=== PATIENT | female | born 1970 | race Caucasian/White ===

== ENCOUNTER 2021-12-06 01:25 | Inpatient (IN) | payer OTHER, SELFPAY ==
[2021-12-06 02:02] VITALS: BP 114/63; PULSE 58; RESP 16; TEMP 36.2; O2SAT 95
[2021-12-06 02:03] VITALS: BMI 31.6
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
[2021-12-06 09:26] VITALS: BP 105/64; PULSE 69; RESP 18; TEMP 36.1; O2SAT 96
[2021-12-06 10:00] VITALS: BP 105/64; PULSE 69; RESP 18; TEMP 36.1; O2SAT 96
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
--- NOTE | 2021-12-06 16:27 | HO.HSGERICON ---
History of Present Illness Data of Consult Service Date: 12/06/21 Primary Care Provider: Unknown Physician HPI Reason for consult: asthma 51F admitted to inpatient psychiatry for depression. has history of asthma/pulmonary fibrosis, on inhaled steroid/laba and prn joseph, denies sob, chest pain, fever, chills Review of Systems Review of Systems: Yes all other systems are reviewed and are negative PMFSH Family History Father No family history of coronary artery disease Social History Household Members: None Household Members Other:: currently homeless Housing: Homeless Do you presently have visiting nurse or other home services: No Patient Tobacco Use Status: Current everyday Tobacco user Tobacco use type: Cigarette Cigarette Packs Per Day: 1 Cigarettes Per Day: 20.0 Smoked in Last 30 Days: Yes Patient Interested in Nicotine Replacement: Yes Patient Given Instructions on How to Stop Smoking: No Use of substances other than those prescribed or required for medical reasons: Yes Substance Use Type: Crack/Cocaine Substance Use Type Other:: cocaine Last Used Substance: Just Prior to Admission Currently Displaying Signs/Symptoms of Drug Intoxication Withdrawal: No Any prior treatment program specific to substance use: Yes Spiritual Healthcare Practices: none noted Pent[employer]al Healthcare Practices: none noted Cultural Healthcare Practices: none noted Advance Directives: No Do you have thoughts of harming others: None Do you have a plan to hurt others: No Plan Recently lost weight without trying: Unsure Patient : No : No Poor oral hygiene: No Meds Allergies Allergy/AdvReac Type Severity Reaction Status Date / Time codeine [CODEINE] Allergy Unknown ABD PAIN Verified 12/06/21 02:03 Active Medications: Current Medications Acetaminophen (Acetaminophen 325 Mg Tablet) 650 mg PO Q6H PRN PRN Reason: Headache/Pain Mild Scale (1-3) Al Hydroxide/Mg Hydroxide (Magnesium Hydrox/Alum Hydrox 30 Ml Oral.Susp) 30 ml PO Q6H PRN PRN Reason: Heartburn/Nausea Albuterol Sulfate (Albuterol Sulfate 90 Mcg 8 Gm Inhaler) 2 puff INHALE Q4H PRN PRN Reason: Shortness Of Breath Escitalopram Oxalate (Escitalopram Oxalate 20 Mg Tablet) 20 mg PO DAILY [facility] Fluticasone/Vilanterol (Fluticasone/Vilanterol 100/25 Blst.W.Dev) 1 puff INHALE RDAILY [facility] Hydroxyzine HCl (Hydroxyzine Hcl 25 Mg Tablet) 25 mg PO BEDTIME PRN PRN Reason: Anxiety Magnesium Hydroxide (Milk Of Magnesia 30 Ml Oral.Susp) 30 ml PO DAILY PRN PRN Reason: Constipation Olanzapine (Olanzapine 5 Mg Tablet) 5 mg PO BEDTIME [facility] Trazodone HCl (Trazodone Hcl 50 Mg Tablet) 50 mg PO BEDTIME PRN PRN Reason: Insomnia Home Medications Medication Instructions Recorded Confirmed Last Taken Type albuterol sulfate 90 mcg/actuation 2 puff INHALATION Q4H PRN 12/06/21 12/06/21 Unknown History aerosol inhaler (ProAir HFA) citalopram 40 mg tablet 40 mg PO DAILY 12/06/21 12/06/21 12/04/21 History fluticasone 250 mcg-salmeterol 50 1 inh INHALATION BID 12/06/21 12/06/21 Unknown History mcg/dose blistr powdr for inhalation (Advair Diskus) Assessment and Plan (1) Opioid use disorder: Status: Acute Plan 51F admitted to inpatient pyschiatry for depression mild intermittent asthma and pulmonary fibrosis stable continue breo albuterol as needed Physical Exam Vital Signs: Last Vital Signs Temp 96.9 F 12/06/21 09:26 Pulse 69 12/06/21 09:26 Resp 18 12/06/21 09:26 BP 105/64 12/06/21 09:26 Pulse Ox 96 12/06/21 09:26 BMI result Body Mass Index 31.6 General: AO X 3, no acute distress Resp: CTA bilateral, no accessory muscles used CVS: S1,S2,RRR GI: soft, non tender, non distended Neuro: motor grossly intact, alert Neuro Cranial nerves: Yes CN's II-XII intact bilaterally
[2021-12-06 21:22] VITALS: BP 122/65; PULSE 63; RESP 18; TEMP 36.2; O2SAT 97
[2021-12-06] MEDS: Nicotine 21 MG PATCH.TD24 TRANSDERMA (21:24)
[2021-12-06] MEDS: OLANZapine 5 MG TABLET PO (21:24)
[2021-12-07 07:48] LABS: Alanine Aminotransferase 44 U/L (0-31); Albumin Level 4.2 g/dL (3.5-5.0); Alkaline Phosphatase 80 U/L (39-117); Anion Gap 12 (12-20); Aspartate Amino Transferase 34 U/L (5-31); Bilirubin Total 0.3 mg/dL (0.0-1.0); Blood Urea Nitrogen 17 mg/dL (9-16); Carbon Dioxide 29 mmol/L (22-29); Chloride 105 mmol/L (96-108); Cholesterol 211 mg/dL; Creatinine Clr Calc Pharmacy 83.8; Estimated Glomerular Filt Rate > 60; Glucose Fasting 95 mg/dL (60-99); HDL Cholesterol 37 mg/dL; LDL Cholesterol Calculated 149 mg/dl; Potassium 4.7 mmol/L (3.3-5.1); Sodium 141 mmol/L (135-145); Total Protein 7.3 g/dL (6.5-8.0); Triglycerides 126 mg/dL
[2021-12-07 08:00] VITALS: BP 123/57; PULSE 56; RESP 16; TEMP 36.9; O2SAT 95
[2021-12-07] MEDS: Fluticasone/Vilanterol 100/25 BLST.W.DEV 1 PUFF INHALE (08:35)
[2021-12-07] MEDS: Escitalopram Oxalate 20 MG TABLET PO (08:36)
[2021-12-07] MEDS: Nicotine 21 MG PATCH.TD24 TRANSDERMA (10:03)
--- NOTE | 2021-12-07 11:55 | P.PNPSI_ITS ---
Subjective Subjective Date of Service: 12/07/21 Reason For Visit: Bipolar, Unspecific anxiety Subjective Notes: Conditional Voluntary Interim History: The nursing staff reported the patient has been visible in the unit, watching TV but she has been tearful at times. Last night she slept well and today in the morning she stated that she was feeling much better. She stated that she liked the effect of Zyprexa on her mood lability. On interview, the patient denies new symptoms she stated that she is feeling a little better, we discussed risks, benefits, side-effects and alternatives and she agreed increase Zyprexa up to 7.5 mg p.o. q.h.s. to target insomnia and mood lability Mental Status Exam Mental Status Exam Patient Appearance: Well Grooomed Patient Orientation: Person Level of Consciousness: Awake Patient Behavior: Cooperative Mood Description: Withdrawn Affect Description: Constricted Patient Cognition Impaired: No Ability to Follow Directions: Good Speech Pattern: Clear Memory Description: Intact Hallucinations: None Delusions: Not Present Thought Process: Slowed Thinking Thought Content: positive for [place] and positive for Circumstantial Judgement: Fair Diagnostics Vital Signs (24Hr): Vital Signs - 24 hr 12/06/21 21:22 Temperature 97.2 F Pulse Rate 63 Respiratory Rate 18 Blood Pressure 122/65 Pulse Oximetry 97 BMI result Body Mass Index 31.6 Labs Results: 12/07/21 07:24 Labs: Laboratory Results - last 48 hr 12/07/21 07:24 Sodium 141 Potassium 4.7 Chloride 105 Carbon Dioxide 29 Anion Gap 12 BUN 17 H Creatinine 0.87 Estim Creat Clear Calc 83.8 Estimated GFR > 60 Fasting Glucose 95 Calcium 10.0 Total Bilirubin 0.3 AST 34 H ALT 44 H Alkaline Phosphatase 80 Total Protein 7.3 Albumin 4.2 Triglycerides 126 Cholesterol 211 LDL Cholesterol, Calc 149 HDL Cholesterol 37 Medications Medications Current Medications Acetaminophen (Acetaminophen 325 Mg Tablet) 650 mg PO Q6H PRN PRN Reason: Headache/Pain Mild Scale (1-3) Al Hydroxide/Mg Hydroxide (Magnesium Hydrox/Alum Hydrox 30 Ml Oral.Susp) 30 ml PO Q6H PRN PRN Reason: Heartburn/Nausea Albuterol Sulfate (Albuterol Sulfate 90 Mcg 8 Gm Inhaler) 2 puff INHALE Q4H PRN PRN Reason: Shortness Of Breath Escitalopram Oxalate (Escitalopram Oxalate 20 Mg Tablet) 20 mg PO DAILY [facility] Last Admin: 12/07/21 08:36 Dose: 20 mg Documented by: Fluticasone/Vilanterol (Fluticasone/Vilanterol 100/25 Blst.W.Dev) 1 puff INHALE RDAILY [facility] Last Admin: 12/07/21 08:35 Dose: 1 puff Documented by: Hydroxyzine HCl (Hydroxyzine Hcl 25 Mg Tablet) 25 mg PO BEDTIME PRN PRN Reason: Anxiety Magnesium Hydroxide (Milk Of Magnesia 30 Ml Oral.Susp) 30 ml PO DAILY PRN PRN Reason: Constipation Nicotine (Nicotine 21 Mg Patch.Td24) 21 mg TRANSDERMA DAILY [facility] Last Admin: 12/07/21 10:03 Dose: 21 mg Documented by: Nicotine Polacrilex (Nicotine Polacrilex Lozenge 4 Mg Lozenge) 4 mg BUCCAL Q2H PRN PRN Reason: Nicotine Cravings Olanzapine (Olanzapine 5 Mg Tablet) 5 mg PO BEDTIME [facility] Last Admin: 12/06/21 21:24 Dose: 5 mg Documented by: Trazodone HCl (Trazodone Hcl 50 Mg Tablet) 50 mg PO BEDTIME PRN PRN Reason: Insomnia Allergies Allergies Allergy/AdvReac Type Severity Reaction Status Date / Time codeine [CODEINE] Allergy Unknown ABD PAIN Verified 12/06/21 02:03 Assessment & Plan Assessment & Plan (1) Opioid use disorder: Status: Acute Code(s): F11.90 - Opioid use, unspecified, uncomplicated Plan 51F admitted to inpatient pyschiatry for depression, she has a long history of opiate use disorder, cocaine use disorder, alcohol and mood lability with several admissions into the hospital for suicidal ideation Plan 1. Increase Zyprexa up to 7.5 mg p.o. q.h.s. to target mood lability. 2. Continue Lexapro. 3. Gather collateral information. I spent ___20___ minutes with the patient and/or on the patient floor today, greater than?50% of which was spent counseling/coordinating care. Reason for contiued inpatient stay Substantial Risk for: inability to function, rapid decompensation and med/psych decompensation
[2021-12-07 21:30] VITALS: BP 113/66; PULSE 62; RESP 16; TEMP 36.3; O2SAT 98
[2021-12-07] MEDS: OLANZapine 7.5 MG TABLET PO (21:32)
[2021-12-08 08:30] VITALS: BP 119/64; PULSE 54; RESP 16; TEMP 36.4; O2SAT 98
[2021-12-08] MEDS: Fluticasone/Vilanterol 100/25 BLST.W.DEV 1 PUFF INHALE (09:07)
[2021-12-08] MEDS: Escitalopram Oxalate 20 MG TABLET PO (09:07)
[2021-12-08] MEDS: Nicotine 21 MG PATCH.TD24 TRANSDERMA (09:08)
--- NOTE | 2021-12-08 13:10 | HO.PSYCHPN ---
Subjective Subjective Date of Service: 12/08/21 Reason For Visit: Bipolar, Unspecific anxiety Subjective Notes: Conditional Voluntary Interim History: Pt reports that she continues to feel depressed. She reports sleep is better but she is having nightmares. She reports she has been on prazosin in the past and would like to restart it. She denies any plan or intent to hurt herself. She has been mostly in her room. She was encouraged to attend groups. She reports she may go to her sister's house on discharge. Medication Compliance: Yes Side effects from medications: No Review of Systems Review of Systems Yes all other systems are reviewed and are negative Mental Status Exam Mental Status Exam Patient Appearance: Well Grooomed Patient Orientation: Person Level of Consciousness: Awake Patient Behavior: Cooperative Mood Description: Withdrawn Affect Description: Constricted Patient Cognition Impaired: No Ability to Follow Directions: Good Speech Pattern: Clear Memory Description: Intact Diagnostics Vital Signs (24Hr): Vital Signs - 24 hr 12/07/21 21:30 12/08/21 08:30 Temperature 97.4 F 97.6 F Pulse Rate 62 54 Respiratory Rate 16 16 Blood Pressure 113/66 119/64 Pulse Oximetry 98 98 BMI result Body Mass Index 31.6 Labs Results: 12/07/21 07:24 Labs: Laboratory Results - last 48 hr 12/07/21 07:24 Sodium 141 Potassium 4.7 Chloride 105 Carbon Dioxide 29 Anion Gap 12 BUN 17 H Creatinine 0.87 Estim Creat Clear Calc 83.8 Estimated GFR > 60 Fasting Glucose 95 Calcium 10.0 Total Bilirubin 0.3 AST 34 H ALT 44 H Alkaline Phosphatase 80 Total Protein 7.3 Albumin 4.2 Triglycerides 126 Cholesterol 211 LDL Cholesterol, Calc 149 HDL Cholesterol 37 Medications Medications Current Medications Acetaminophen (Acetaminophen 325 Mg Tablet) 650 mg PO Q6H PRN PRN Reason: Headache/Pain Mild Scale (1-3) Al Hydroxide/Mg Hydroxide (Magnesium Hydrox/Alum Hydrox 30 Ml Oral.Susp) 30 ml PO Q6H PRN PRN Reason: Heartburn/Nausea Albuterol Sulfate (Albuterol Sulfate 90 Mcg 8 Gm Inhaler) 2 puff INHALE Q4H PRN PRN Reason: Shortness Of Breath Escitalopram Oxalate (Escitalopram Oxalate 20 Mg Tablet) 20 mg PO DAILY [facility] Last Admin: 12/08/21 09:07 Dose: 20 mg Documented by: Fluticasone/Vilanterol (Fluticasone/Vilanterol 100/25 Blst.W.Dev) 1 puff INHALE RDAILY [facility] Last Admin: 12/08/21 09:07 Dose: 1 puff Documented by: Hydroxyzine HCl (Hydroxyzine Hcl 25 Mg Tablet) 25 mg PO BEDTIME PRN PRN Reason: Anxiety Magnesium Hydroxide (Milk Of Magnesia 30 Ml Oral.Susp) 30 ml PO DAILY PRN PRN Reason: Constipation Melatonin (Melatonin 3 Mg Tablet) 9 mg PO BEDTIME PRN PRN Reason: Insomnia Nicotine (Nicotine 21 Mg Patch.Td24) 21 mg TRANSDERMA DAILY [facility] Last Admin: 12/08/21 09:08 Dose: 21 mg Documented by: Nicotine Polacrilex (Nicotine Polacrilex Lozenge 4 Mg Lozenge) 4 mg BUCCAL Q2H PRN PRN Reason: Nicotine Cravings Olanzapine (Olanzapine 7.5 Mg Tablet) 7.5 mg PO BEDTIME [facility] Last Admin: 12/07/21 21:32 Dose: 7.5 mg Documented by: Trazodone HCl (Trazodone Hcl 50 Mg Tablet) 50 mg PO BEDTIME PRN PRN Reason: Insomnia Allergies Allergies Allergy/AdvReac Type Severity Reaction Status Date / Time codeine [CODEINE] Allergy Unknown ABD PAIN Verified 12/06/21 02:03 Assessment & Plan Assessment & Plan (1) Opioid use disorder: Status: Acute Code(s): F11.90 - Opioid use, unspecified, uncomplicated Plan 51F admitted to inpatient pyschiatry for depression, she has a long history of opiate use disorder, cocaine use disorder, alcohol and mood lability with several admissions into the hospital for suicidal ideation Plan 1. Increase Zyprexa up to 7.5 mg p.o. q.h.s. to target mood lability. 2. Continue Lexapro. 3. Gather collateral information. 12/08- start prazosin 1mg po qhs for nightmares. I spent minutes with the patient and/or on the patient floor today, greater than?50% of which was spent counseling/coordinating care. Reason for contiued inpatient stay Substantial Risk for: harm to self
[2021-12-08 20:45] VITALS: BP 123/75; PULSE 63; RESP 16; TEMP 36.2; O2SAT 93
[2021-12-08] MEDS: OLANZapine 7.5 MG TABLET PO (20:46)
[2021-12-08] MEDS: Melatonin 3 MG TABLET 9 MG PO (20:46)
[2021-12-08] MEDS: Prazosin HCL 1 MG CAPSULE PO (20:46)
[2021-12-09 06:00] VITALS: BP 113/56; PULSE 59; RESP 16; TEMP 36.1; O2SAT 96
--- NOTE | 2021-12-09 07:53 | HO.PSYCHPN ---
Subjective Subjective Date of Service: 12/09/21 Reason For Visit: Bipolar, Unspecific anxiety Subjective Notes: Conditional Voluntary Interim History: Pt reports feeling less depressed but tired. She reports better sleep, still having nightmares. She denies SI/HI. She was encouraged to attend groups. No behavioral concerns. we discussed increasing prazosin. No VH/AH> Medication Compliance: Yes Side effects from medications: No Review of Systems Review of Systems Yes all other systems are reviewed and are negative Mental Status Exam Mental Status Exam Patient Appearance: Well Grooomed Patient Orientation: Person Level of Consciousness: Awake Patient Behavior: Cooperative Mood Description: Withdrawn Affect Description: Constricted Patient Cognition Impaired: No Ability to Follow Directions: Good Speech Pattern: Clear Memory Description: Intact Diagnostics Vital Signs (24Hr): Vital Signs - 24 hr 12/09/21 21:30 12/09/21 21:31 Temperature 97.7 F 97.7 F Pulse Rate 61 61 Respiratory Rate 16 16 Blood Pressure 122/56 L 122/56 L Pulse Oximetry 99 99 BMI result Body Mass Index 31.6 Labs Results: 12/07/21 07:24 Medications Medications Current Medications Acetaminophen (Acetaminophen 325 Mg Tablet) 650 mg PO Q6H PRN PRN Reason: Headache/Pain Mild Scale (1-3) Al Hydroxide/Mg Hydroxide (Magnesium Hydrox/Alum Hydrox 30 Ml Oral.Susp) 30 ml PO Q6H PRN PRN Reason: Heartburn/Nausea Albuterol Sulfate (Albuterol Sulfate 90 Mcg 8 Gm Inhaler) 2 puff INHALE Q4H PRN PRN Reason: Shortness Of Breath Escitalopram Oxalate (Escitalopram Oxalate 20 Mg Tablet) 20 mg PO DAILY [facility] Last Admin: 12/09/21 09:02 Dose: 20 mg Documented by: Fluticasone/Vilanterol (Fluticasone/Vilanterol 100/25 Blst.W.Dev) 1 puff INHALE RDAILY [facility] Last Admin: 12/09/21 09:02 Dose: 1 puff Documented by: Hydroxyzine HCl (Hydroxyzine Hcl 25 Mg Tablet) 25 mg PO BEDTIME PRN PRN Reason: Anxiety Magnesium Hydroxide (Milk Of Magnesia 30 Ml Oral.Susp) 30 ml PO DAILY PRN PRN Reason: Constipation Melatonin (Melatonin 3 Mg Tablet) 9 mg PO BEDTIME PRN PRN Reason: Insomnia Last Admin: 12/08/21 20:46 Dose: 9 mg Documented by: Nicotine (Nicotine 21 Mg Patch.Td24) 21 mg TRANSDERMA DAILY [facility] Last Admin: 12/09/21 09:02 Dose: 21 mg Documented by: Nicotine Polacrilex (Nicotine Polacrilex Lozenge 4 Mg Lozenge) 4 mg BUCCAL Q2H PRN PRN Reason: Nicotine Cravings Olanzapine (Olanzapine 7.5 Mg Tablet) 7.5 mg PO BEDTIME [facility] Last Admin: 12/09/21 21:28 Dose: 7.5 mg Documented by: Prazosin HCl (Prazosin Hcl 1 Mg Capsule) 1 mg PO BEDTIME [facility]; Protocol Last Admin: 12/09/21 21:28 Dose: 1 mg Documented by: Trazodone HCl (Trazodone Hcl 50 Mg Tablet) 50 mg PO BEDTIME PRN PRN Reason: Insomnia Last Admin: 12/09/21 21:31 Dose: 50 mg Documented by: Allergies Allergies Allergy/AdvReac Type Severity Reaction Status Date / Time codeine [CODEINE] Allergy Unknown ABD PAIN Verified 12/06/21 02:03 Assessment & Plan Assessment & Plan (1) Opioid use disorder: Status: Acute Code(s): F11.90 - Opioid use, unspecified, uncomplicated Plan 51F admitted to inpatient pyschiatry for depression, she has a long history of opiate use disorder, cocaine use disorder, alcohol and mood lability with several admissions into the hospital for suicidal ideation Plan 1. Increase Zyprexa up to 7.5 mg p.o. q.h.s. to target mood lability. 2. Continue Lexapro. 3. Gather collateral information. 12/08- start prazosin 1mg po qhs for nightmares. 12/09- increase prazosin to 2mg po qhs I spent minutes with the patient and/or on the patient floor today, greater than?50% of which was spent counseling/coordinating care. Reason for contiued inpatient stay Substantial Risk for: harm to self
[2021-12-09] MEDS: Escitalopram Oxalate 20 MG TABLET PO (09:02)
[2021-12-09] MEDS: Fluticasone/Vilanterol 100/25 BLST.W.DEV 1 PUFF INHALE (09:02)
[2021-12-09] MEDS: Nicotine 21 MG PATCH.TD24 TRANSDERMA (09:02)
[2021-12-09] MEDS: OLANZapine 7.5 MG TABLET PO (21:28)
[2021-12-09] MEDS: Prazosin HCL 1 MG CAPSULE PO (21:28)
[2021-12-09 21:30] VITALS: BP 122/56; PULSE 61; RESP 16; TEMP 36.5; O2SAT 99
[2021-12-09 21:31] VITALS: BP 122/56; PULSE 61; RESP 16; TEMP 36.5; O2SAT 99
[2021-12-09] MEDS: traZODone HCL 50 MG TABLET PO (21:31)
[2021-12-10 08:30] VITALS: BP 90/52; PULSE 58; RESP 18; TEMP 36.4; O2SAT 96
[2021-12-10] MEDS: Escitalopram Oxalate 20 MG TABLET PO (08:39)
[2021-12-10] MEDS: Fluticasone/Vilanterol 100/25 BLST.W.DEV 1 PUFF INHALE (08:39)
[2021-12-10] MEDS: Nicotine 21 MG PATCH.TD24 TRANSDERMA (08:41)
--- NOTE | 2021-12-10 12:40 | HO.PSYCHPN ---
Subjective Subjective Date of Service: 12/10/21 Reason For Visit: Bipolar, Unspecific anxiety Subjective Notes: Conditional Voluntary Interim History: Pt in morning in bed, more visible later during the day. she attended assigned groups. She reports fair sleep, but continues to have nightmares. She reports feeling less depressed, no SI/HI. No VH/AH. Medication Compliance: Yes Side effects from medications: No Attending Groups: Yes Review of Systems Review of Systems Yes all other systems are reviewed and are negative Mental Status Exam Mental Status Exam Patient Appearance: Well Grooomed Patient Orientation: Person Level of Consciousness: Awake Patient Behavior: Cooperative Mood Description: Withdrawn Affect Description: Constricted Patient Cognition Impaired: No Ability to Follow Directions: Good Speech Pattern: Clear Memory Description: Intact Diagnostics Vital Signs (24Hr): Vital Signs - 24 hr 12/10/21 20:27 12/11/21 08:36 Temperature 97.4 F 97.7 F Pulse Rate 67 56 Respiratory Rate 16 17 Blood Pressure 130/69 97/52 L Pulse Oximetry 94 95 BMI result Body Mass Index 32.6 Labs Results: 12/07/21 07:24 Medications Medications Current Medications Acetaminophen (Acetaminophen 325 Mg Tablet) 650 mg PO Q6H PRN PRN Reason: Headache/Pain Mild Scale (1-3) Al Hydroxide/Mg Hydroxide (Magnesium Hydrox/Alum Hydrox 30 Ml Oral.Susp) 30 ml PO Q6H PRN PRN Reason: Heartburn/Nausea Albuterol Sulfate (Albuterol Sulfate 90 Mcg 8 Gm Inhaler) 2 puff INHALE Q4H PRN PRN Reason: Shortness Of Breath Escitalopram Oxalate (Escitalopram Oxalate 20 Mg Tablet) 20 mg PO DAILY [facility] Last Admin: 12/11/21 08:28 Dose: 20 mg Documented by: Fluticasone/Vilanterol (Fluticasone/Vilanterol 100/25 Blst.W.Dev) 1 puff INHALE RDAILY [facility] Last Admin: 12/11/21 08:30 Dose: 1 puff Documented by: Hydroxyzine HCl (Hydroxyzine Hcl 25 Mg Tablet) 25 mg PO BEDTIME PRN PRN Reason: Anxiety Magnesium Hydroxide (Milk Of Magnesia 30 Ml Oral.Susp) 30 ml PO DAILY PRN PRN Reason: Constipation Melatonin (Melatonin 3 Mg Tablet) 9 mg PO BEDTIME PRN PRN Reason: Insomnia Last Admin: 03/23/22 20:31 Dose: 9 mg Documented by: Nicotine (Nicotine 21 Mg Patch.Td24) 21 mg TRANSDERMA DAILY [facility] Last Admin: 12/11/21 08:27 Dose: 21 mg Documented by: Nicotine Polacrilex (Nicotine Polacrilex Lozenge 4 Mg Lozenge) 4 mg BUCCAL Q2H PRN PRN Reason: Nicotine Cravings Olanzapine (Olanzapine 7.5 Mg Tablet) 7.5 mg PO BEDTIME [facility] Last Admin: 12/10/21 20:31 Dose: 7.5 mg Documented by: Prazosin HCl (Prazosin Hcl 1 Mg Capsule) 2 mg PO BEDTIME [facility]; Protocol Last Admin: 12/10/21 20:31 Dose: 2 mg Documented by: Trazodone HCl (Trazodone Hcl 50 Mg Tablet) 50 mg PO BEDTIME PRN PRN Reason: Insomnia Last Admin: 12/09/21 21:31 Dose: 50 mg Documented by: Allergies Allergies Allergy/AdvReac Type Severity Reaction Status Date / Time codeine [CODEINE] Allergy Unknown ABD PAIN Verified 12/06/21 02:03 Assessment & Plan Assessment & Plan (1) Opioid use disorder: Status: Acute Code(s): F11.90 - Opioid use, unspecified, uncomplicated Plan 51F admitted to inpatient pyschiatry for depression, she has a long history of opiate use disorder, cocaine use disorder, alcohol and mood lability with several admissions into the hospital for suicidal ideation Plan 1. Increase Zyprexa up to 7.5 mg p.o. q.h.s. to target mood lability. 2. Continue Lexapro. 3. Gather collateral information. 12/08- start prazosin 1mg po qhs for nightmares. 12/09- increase prazosin to 2mg po qhs 12/10 continue current medications. I spent minutes with the patient and/or on the patient floor today, greater than?50% of which was spent counseling/coordinating care. Reason for contiued inpatient stay Substantial Risk for: harm to self
[2021-12-10 20:27] VITALS: BP 130/69; PULSE 67; RESP 16; TEMP 36.3; O2SAT 94
[2021-12-10] MEDS: Melatonin 3 MG TABLET 9 MG PO (20:31)
[2021-12-10] MEDS: OLANZapine 7.5 MG TABLET PO (20:31)
[2021-12-10] MEDS: Prazosin HCL 1 MG CAPSULE 2 MG PO (20:31)
[2021-12-11] MEDS: Nicotine 21 MG PATCH.TD24 TRANSDERMA (08:27)
[2021-12-11] MEDS: Escitalopram Oxalate 20 MG TABLET PO (08:28)
[2021-12-11] MEDS: Fluticasone/Vilanterol 100/25 BLST.W.DEV 1 PUFF INHALE (08:30)
[2021-12-11 08:36] VITALS: BP 97/52; PULSE 56; RESP 17; TEMP 36.5; O2SAT 95
[2021-12-11 11:26] VITALS: BMI 32.6
--- NOTE | 2021-12-11 14:07 | HO.PSYCHPN ---
Subjective Subjective Date of Service: 12/11/21 Reason For Visit: Bipolar, Unspecific anxiety Interim History: Pt in morning in bed, more visible later during the day. she attended assigned groups. She reports fair sleep, but continues to have nightmares. She reports feeling less depressed, no SI/HI. No VH/AH. Review of Systems Review of Systems Yes all other systems are reviewed and are negative Mental Status Exam Mental Status Exam Patient Appearance: Well Grooomed Patient Orientation: Person Level of Consciousness: Awake Patient Behavior: Cooperative Mood Description: Withdrawn Affect Description: Constricted Patient Cognition Impaired: No Ability to Follow Directions: Good Speech Pattern: Clear Memory Description: Intact Diagnostics Vital Signs (24Hr): BMI result Body Mass Index 32.6 Labs Results: 12/07/21 07:24 Medications Allergies Allergies Allergy/AdvReac Type Severity Reaction Status Date / Time codeine [CODEINE] Allergy Unknown ABD PAIN Verified 12/06/21 02:03 Assessment & Plan Assessment & Plan (1) Opioid use disorder: Status: Acute Code(s): F11.90 - Opioid use, unspecified, uncomplicated Plan 51F admitted to inpatient pyschiatry for depression, she has a long history of opiate use disorder, cocaine use disorder, alcohol and mood lability with several admissions into the hospital for suicidal ideation Plan 1. Increase Zyprexa up to 7.5 mg p.o. q.h.s. to target mood lability. 2. Continue Lexapro. 3. Gather collateral information. 12/08- start prazosin 1mg po qhs for nightmares. 12/09- increase prazosin to 2mg po qhs 12/10 continue current medications. I spent minutes with the patient and/or on the patient floor today, greater than?50% of which was spent counseling/coordinating care. Reason for contiued inpatient stay Substantial Risk for: inability to function
[2021-12-11 20:00] VITALS: BP 136/69; PULSE 61; RESP 16; TEMP 36.6; O2SAT 97
[2021-12-11] MEDS: Prazosin HCL 1 MG CAPSULE 2 MG PO (21:14)
[2021-12-11] MEDS: OLANZapine 7.5 MG TABLET PO (21:15)
[2021-12-11] MEDS: Melatonin 3 MG TABLET 9 MG PO (21:15)
[2021-12-11] MEDS: Acetaminophen 325 MG TABLET 650 MG PO (22:33)
[2021-12-12] MEDS: Fluticasone/Vilanterol 100/25 BLST.W.DEV 1 PUFF INHALE (08:44)
[2021-12-12] MEDS: Nicotine 21 MG PATCH.TD24 TRANSDERMA (08:45)
[2021-12-12] MEDS: Escitalopram Oxalate 20 MG TABLET PO (08:45)
[2021-12-12 10:00] VITALS: BP 102/54; PULSE 70; RESP 17; TEMP 36.4; O2SAT 97
--- NOTE | 2021-12-12 10:07 | P.DS_ITS ---
DS: Providers Provider Date of Service: 12/12/21 Date of admission: 12/06/21 01:25 Primary care physician: Unknown Physician Consults: 12/06/21 10:58 Consult to Hospitalist Routine Consulting Provider: Hospitalist Reason For Exam: Need H&P DS: Diagnosis Discharge Diagnosis (1) Opioid use disorder: Status: Acute DS: Medications Discharge Medications Home Medications: Previous Rx's Medication Instructions Recorded albuterol sulfate 90 mcg/actuation 2 puff INHALATION Q4H PRN #6.7 g 12/12/21 aerosol inhaler (Ventolin HFA) escitalopram oxalate 20 mg tablet 20 mg PO DAILY #30 tab 12/12/21 fluticasone furoate 100 1 ea INHALATION RDAILY #28 ea 12/12/21 mcg-vilanterol 25 mcg/dose inhalation powder (Breo Ellipta) melatonin 3 mg tablet 9 mg PO BEDTIME PRN #90 tab 12/12/21 nicotine 21 mg/24 hr daily 21 mg TRANSDERMAL DAILY #30 ea 12/12/21 transdermal patch olanzapine 10 mg tablet 10 mg PO BEDTIME #30 tab 12/12/21 prazosin 5 mg capsule 5 mg PO BEDTIME #30 cap 12/12/21 Mental Status Exam Mental Status Exam Patient Appearance: Well Grooomed Patient Orientation: Person, Place, Time and Situation Level of Consciousness: Awake and Appropriate Patient Behavior: Appropriate Mood Description: Appropriate Affect Description: Calm and Appropriate Speech Pattern: Clear, Appropriate and Spontaneous Speech Memory Description: Intact Hallucinations: None Delusions: Not Present Thought Process: Intact Thought Content: positive for Intact Judgement: Fair DS: Summary Hospital Course Hospital Course: Subjective Notes: [place] Warning and Conditional Voluntary Narrative: ? The patient is a 51-year-old female, , mother of adult children, referred from the emergency room of [facility] her son dropped her there since she verbalized suicidal ideation with a plan to overdose on drugs and pills.? The patient carries the diagnosis of opiate use disorder, cocaine use disorder and mood lability with several prior admissions into the hospital for an safe behaviors.? The patient recently moved from [place] to [place], her family was not aware that she came back from [facility] a few days ago and she got into a binge of drugs were she spent more than 5000 dollars and then she became suicidal.? On admission, the patient complained of depressed mood, anhedonia, lack of energy, feelings of hopelessness and worthlessness and suicidal thoughts.? She was able to contract for safety here in the facility.? On interview, the patient denies? auditory hallucinations or unsafe behaviors.? She reported that she has history of depressive symptoms elicited by depressed mood, anhedonia, lack of energy and feelings of hopelessness of for several years but she also admitted short periods of elated mood, increased energy, flight of ideas and no sleep.? She recently reported that she having slept in 5 days when she was on the drug binge.? Even though that she has hypomania she never had long-term use of mood stabilizers.? At this moment, she denies psychotic symptoms. Past Psychiatric History: ? She has several prior admissions into the hospital, according to be a chin crisis she has at least 2 assessments in the last 3 years.? She reports that she had been admitted into the hospital more than 9 times in her lifetime, her last admission 2 years ago.? She is poorly compliant of outpatient services. Medical Evaluation Reviewed: Hospitalist Ton Pending HOSPITAL COURSE Ms. Galvin was admitted on a CV and placed on 15 minutes checks for safety. After discussing risks, benefits and alternative treatment options, pt agreed to start olanzapine for mood stabilizations. Her affect gradually presented as less labile, she reported improved sleep. She denied suicidal or homicidal ideation. She denied VH/AH and did not appear internally preoccupied. She was increasingly more visible in the unit, attended assigned groups. No incidences of disruptive behaviors nor use of restraints. Pt agreed to continue OP psych treatment. Status at Discharge Cognitive/behavioral status at discharge: pt with brighter, no labile mood. No SI/HI. future oriented. No signs of psychosis, no signs of aggression towards self or others. Functional status at discharge: independent ambulation Overall status at discharge: patient is progressing back to baseline Time Spent with Patient Time attestation: Total time spent providing and/or coordinating discharge services: Discharge Plan Discharge Patient Disposition: Home, Self-Care Discharge Diagnosis: Bipolar type 2 Disorder Cocaine USe Disorder Referrals: THERAPY , PSYCHIATRY [Other] - 1 Week (PLEASE CALL WHEN DISCHARGE IS SET AND APPOINTMENTS WILL BE MADE A HOSPITAL DISCHARGE) [facility] [Physician] - 1 Week Discharge Medications: New nicotine 21 mg/24 hr Patch 24 Hour 21 mg transdermal DAILY Qty: 30 0RF albuterol sulfate [Ventolin HFA] 90 mcg/actuation Hfa Aerosol Inhaler 2 puff inhalation Q4H PRN (Reason: Shortness Of Breath) Qty: 6.7 0RF prazosin 5 mg capsule 5 mg PO BEDTIME Qty: 30 0RF escitalopram oxalate 20 mg Tablet 20 mg PO DAILY Qty: 30 0RF olanzapine 10 mg tablet 10 mg PO BEDTIME Qty: 30 0RF melatonin 3 mg Tablet 9 mg PO BEDTIME PRN (Reason: Insomnia) Qty: 90 0RF Breo Ellipta 100-25 mcg/dose Blister With Device 1 ea inhalation RDAILY Qty: 28 0RF Discontinued fluticasone propion-salmeterol [Advair Diskus] 250-50 mcg/dose Blister With Device 1 inh inhalation BID 0RF citalopram 40 mg Tablet 40 mg PO DAILY 0RF albuterol sulfate [ProAir HFA] 90 mcg/actuation Hfa Aerosol Inhaler 2 puff INHALATION Q4H PRN (Reason: Shortness Of Breath) 0RF Discharge Orders: Discharge Order (Routine); Ordered 12/12/21 Ordered By: Pari Strauss Diet: regular diet Activity on Discharge: As tolerated Stand Alone Forms: Patient Portal Discharge page, Community Support Care Plan Goals: 1. Maintain mood 2. No SI/HI Health Concerns: Follow up with PCP for routine care Plan of Treatment: 1. Take medications as prescribed 2. Go to nearest ED or call 911 in event of emergency Assessment: Pt with brighter affect, non labile. No signs of psychosis, no AH/VH. Future oriented in that she wants to continue substance use treatment. No SI/HI. No signs of aggression towards self or others. Discharge Date/Time: 12/12/21 13:24
== END 2021-12-12 13:24 | disposition home or self-care (01) | DRG 753 ==
PROVIDERS: Psychiatry & Neurology Psychiatry; Admitting Provider Psychiatry & Neurology Psychiatry; Visit Provider Social Worker
DX: F31.81 Bipolar II disorder (principal); R45.851 Suicidal ideations; F11.10 Opioid abuse, uncomplicated; F14.10 Cocaine abuse, uncomplicated; F17.210 Nicotine dependence, cigarettes, uncomplicated; Z59.02 Unsheltered homelessness; Z71.6 Tobacco abuse counseling; Z88.5 Allergy status to narcotic agent; Z79.51 Long term (current) use of inhaled steroids; Z79.899 Other long term (current) drug therapy
CPT/HCPCS: 36415; 80053; 80061

== ENCOUNTER 2024-03-27 14:11 | Inpatient (IN) | payer OTHER, SELFPAY ==
[2024-03-27 14:32] VITALS: BP 96/64; PULSE 100; RESP 20; TEMP 36.8; O2SAT 96; BMI 27.1
--- NOTE | 2024-03-27 14:38 | ECG_ITS ---
Test Reason : medical cleareance Blood Pressure : / mmHG Vent. Rate : 091 BPM Atrial Rate : 091 BPM P-R Int : 148 ms QRS Dur : 102 ms QT Int : 368 ms P-R-T Axes : 071 017 054 degrees QTc Int : 452 ms Normal sinus rhythm Normal ECG When compared with ECG of 06-FEB-2016 22:03, T wave amplitude has decreased in Lateral leads Referred By: Generic ED Physician Electronically Signed By:Juan Azevedo
[2024-03-27 15:00] LABS: MANUAL DIFF FLAG NO
[2024-03-27 15:02] LABS: Basophils Absolute Auto 0.1 X10*3/uL (0.0-0.2); Basophils Percent Auto 0.7 % (0-2); Eosinophils Percent Auto 0.1 % (0-4); Hematocrit 39.6 % (37.0-47.0); Hemoglobin 13.5 g/dl (12.0-16.0); Imm Gran Abs Auto 0.04 X10*3/uL (0.00-0.03); Imm Gran Pct Auto 0.5 % (0.0-0.4); Lymphocytes Absolute Auto 1.6 X10*3/uL (1.2-4.9); Lymphocytes Percent Auto 18.3 % (20-40); Mean Corpuscular HGB Conc 34.1 g/dl (31.0-35.0); Mean Corpuscular Hemoglobin 28.6 pg (27.0-33.0); Mean Corpuscular Volume 83.9 fL (80.0-98.0); Mean Platelet Volume 10.4 fL (9.4-12.3); Monocytes Absolute Auto 0.5 X10*3/uL (0.1-1.2); Neutrophils Absolute Auto 6.3 x10*3/uL (2.0-8.3); Neutrophils Percent Auto 74.4 % (45-73); Platelet Count 211 X10*3/uL (160-400); Red Blood Count 4.72 X10*6/uL (4.20-5.50); Red Cell Distribution Width 13.1 % (11.0-16.0); White Blood Count 8.5 X10*3/uL (4.8-10.8)
[2024-03-27 15:05] LABS: Appearance Urine Clear; Color Urine Yellow; Glucose Urine UA Negative (Negative); Leukocyte Esterase Urine Trace (Negative); Nitrite Urine Positive (Negative); PH 5.5 (5.0-9.0); Specific Gravity - Urine 1.025 (1.005-1.025); UMIC TRIGGER UACC YES; Urine Blood Negative (Negative); Urine Ketones 15 mg/dL (Negative); Urine Protein Negative (Neg-Trace)
--- NOTE | 2024-03-27 15:11 | ED.PSYCH ---
HPI - Psych General Chief Complaint: Psychiatric Symptoms Stated Complaint: SI crisis Time Seen by Provider: 03/27/24 14:49 Source: patient Mode of arrival: ambulatory Limitations: no limitations History of Present Illness HPI Narrative: This is a 54 years old patient presented to the emergency department complaining of SI she has history of crack cocaine abuse history of bipolar disorder and anxiety. She states that she feeling suicidal. complaint: suicidal ideation Onset (ago): day(s) (1) Duration: constant History of same: Yes Exacerbating factors: none Associated psychiatric symptoms: depression and suicidal ideation Associated symptoms: denies other symptoms Related Data Previous Rx's ?Medication ?Instructions ?Recorded albuterol sulfate 90 mcg/actuation 2 puff inhalation Q4H PRN 12/12/21 aerosol inhaler (Ventolin HFA) Shortness Of Breath #6.7 grams escitalopram oxalate 20 mg tablet 20 mg PO DAILY #30 tabs 12/12/21 fluticasone furoate 100 1 ea inhalation RDAILY #28 ea 12/12/21 mcg-vilanterol 25 mcg/dose inhalation powder (Breo Ellipta) melatonin 3 mg tablet 9 mg (3 x 3 mg) PO BEDTIME PRN 12/12/21 Insomnia #90 tabs nicotine 21 mg/24 hr daily 21 mg transdermal DAILY #30 ea 12/12/21 transdermal patch olanzapine 10 mg tablet 10 mg PO BEDTIME #30 tabs 12/12/21 prazosin 5 mg capsule 5 mg PO BEDTIME #30 caps 12/12/21 Allergies Allergy/AdvReac Type Severity Reaction Status Date / Time codeine [CODEINE] Allergy Unknown ABD PAIN Verified 03/27/24 14:37 Review of Systems Eyes: Eyes: Reports no additional eye complaints Cardiovascular: Cardiovascular: Reports no additional cardiovascular complaints Neurologic: Reports system reviewed and no additional complaints, except as documented Psychiatric: Psychiatric: Reports anxiety and Reports hopelessness [facility] Past Medical History Attestation statement: The following information was validated with the patient. [facility] Narrative: Polysubstance abuse/PTSD/bipolar disorder Source: unable to obtain Family History Family History Father No family history of coronary artery disease Social History Social History Household Members: None Household Members Other:: currently homeless Housing: Homeless Do you presently have visiting nurse or other home services: No Patient Tobacco Use Status: Current everyday Tobacco user Tobacco use type: Cigarette Cigarette Packs Per Day: 1 Cigarettes Per Day: 20.0 Substance Use Type: Crack/Cocaine Advance Directives: No Advance Directives Information Provided: No Do you have a plan to hurt others: No Plan service: No Sexual orientation: Did not discuss. Physical Exam Vital Signs: Vital Signs: Last Vital Signs Temp 97.8 F 03/27/24 15:16 Pulse 94 03/27/24 15:16 Resp 19 03/27/24 15:16 BP 92/65 03/27/24 15:16 Pulse Ox 97 03/27/24 15:16 O2 Del Method Room Air 03/27/24 15:16 BMI result Body Mass Index 27.1 Const: General: cooperative Nutritional Appearance: average body habitus Orientation/consciousness: patient oriented x3 HEENT: Head: Yes normal to inspection Ears: hearing grossly normal bilaterally Face and sinus: Yes normal facial exam Neck: Neck: Yes normal visual inspection and Yes full ROM Chest: Chest palpation & inspection: normal inspection of the chest Resp: Effort & Inspection: normal respiratory effort Auscultation: clear to auscultation bilaterally Cardio: Jugular venous distension: no JVD Rate: regular rate Rhythm: regular rhythm GI: Inspection: Yes normal to inspection Palpation (GI): Soft to palpation, not firm, nontender and no guarding Auscultation: normal bowel sounds Skin: General skin exam: no rashes or lesions noted Lesions: no lesions Rashes: no rashes Neuro: General: patient oriented x3 Cranial nerves: Yes CN's II-XII intact bilaterally Course Reevaluation(s) Reevaluation #1: I am off shift now case will be signed out to Dr Estrada ,care team eval pending Time: 16:09 Medical Decision Making Medical Decision Making MDM Narrative: Patient presented emergency department with a chief complaint of SI, will consult psych Differential Diagnosis Differential Diagnoses: The differential diagnosis associated with the presentation includes Depression/PTSD/bipolar disorder/polysubstance abuse Admission/Observation Consideration of admission/observation: Escalation of care including admission/observation considered Lab Data 03/27/24 14:53 03/27/24 14:53 Labs: Lab Results 03/27/24 03/27/24 Range/Units 14:52 14:53 WBC 8.5 (4.8-10.8) X10*3/uL RBC 4.72 (4.20-5.50) X10*6/uL Hgb 13.5 (12.0-16.0) g/dl Hct 39.6 (37.0-47.0) % MCV 83.9 (80.0-98.0) fL MCH 28.6 (27.0-33.0) pg MCHC 34.1 (31.0-35.0) g/dl RDW 13.1 (11.0-16.0) % Plt Count 211 (160-400) X10*3/uL MPV 10.4 (9.4-12.3) fL Immature Gran % (Auto) 0.5 H (0.0-0.4) % Neut % (Auto) 74.4 H (45-73) % Lymph % (Auto) 18.3 L (20-40) % [place] % (Auto) 6.0 (2-11) % Eos % (Auto) 0.1 (0-4) % Baso % (Auto) 0.7 (0-2) % Lymph # (Auto) 1.6 (1.2-4.9) X10*3/uL [place] # (Auto) 0.5 (0.1-1.2) X10*3/uL Eos # (Auto) 0.0 (0.0-0.4) X10*3/uL Baso # (Auto) 0.1 (0.0-0.2) X10*3/uL Abs Immat Gran (auto) 0.04 H (0.00-0.03) X10*3/uL Absolute Neuts (auto) 6.3 (2.0-8.3) x10*3/uL Absolute Nucleated RBC 0.000 (0.0-0.012) X10*3/uL Nucleated RBC % (auto) 0.0 (0.0-0.2) /100WBC Sodium 137 (135-145) mmol/L Potassium 3.3 (3.3-5.1) mmol/L Chloride 105 (96-108) mmol/L Carbon Dioxide 23 (22-29) mmol/L Anion Gap 12 (12-20) BUN 12 (9-16) mg/dL Creatinine 0.83 (0.5-1.4) mg/dL Estim Creat Clear Calc 78.9 Estimated GFR > 60 Random Glucose 170 H (60-115) mg/dL Calcium 9.8 (8.4-10.2) mg/dL Total Bilirubin 0.3 (0.0-1.0) mg/dL AST 12 (5-31) U/L ALT 8 (0-31) U/L Alkaline Phosphatase 91 (39-117) U/L Total Protein 7.7 (6.5-8.0) g/dL Albumin 4.3 (3.5-5.0) g/dL Urine Color Yellow Urine Appearance Clear Urine pH 5.5 (5.0-9.0) Ur Specific [place] 1.025 (1.005-1.025) Urine Protein Negative (Neg-Trace) mg/dL Urine Glucose (UA) Negative (Negative) mg/dL Urine Ketones 15 (Negative) mg/dL Urine Blood Negative (Negative) Urine Nitrite Positive H (Negative) Ur Leukocyte Esterase Trace H (Negative) Urine RBC 0-2 (0-2) /HPF Urine WBC 0-5 (0-5) /HPF Ur Squamous Epith Cells 0-2 (0-2) /HPF Urine Bacteria 4+ (None Seen) Hyaline Casts 0-2 (0-2) /LPF Urine Opiates Screen Not Detected (Not Detect) Ur Buprenorphine Scrn Not Detected (Not Detect) ng/mL Ur Oxycodone Screen Not Detected (Not Detect) ng/mL Urine Methadone Screen Not Detected (Not Detect) ng/mL Urine Fentanyl Screen Not Detected (Not Detect) Ur Barbiturates Screen Not Detected (Not Detect) Ur Phencyclidine Scrn Not Detected (Not Detect) Ur Amphetamines Screen Not Detected (Not Detect) U Benzodiazepines Scrn Not Detected (Not Detect) Urine Cocaine Screen POSITIVE H (Not Detect) U Marijuana (THC) Screen Not Detected (Not Detect) Discharge Plan Discharge Clinical Impression: Cocaine abuse Depression Qualifiers: Depression Type: unspecified Qualified Code(s): F32.A - Depression, unspecified Patient Disposition: Still a Patient Prescriptions: No Action nicotine 21 mg/24 hr Patch 24 Hour 21 mg transdermal DAILY Qty: 30 0RF albuterol sulfate [Ventolin HFA] 90 mcg/actuation Hfa Aerosol Inhaler 2 puff inhalation Q4H PRN (Reason: Shortness Of Breath) Qty: 6.7 0RF prazosin 5 mg capsule 5 mg PO BEDTIME Qty: 30 0RF escitalopram oxalate 20 mg Tablet 20 mg PO DAILY Qty: 30 0RF olanzapine 10 mg tablet 10 mg PO BEDTIME Qty: 30 0RF melatonin 3 mg Tablet 9 mg PO BEDTIME PRN (Reason: Insomnia) Qty: 90 0RF Breo Ellipta 100-25 mcg/dose Blister With Device 1 ea inhalation RDAILY Qty: 28 0RF Print Language: Italian
[2024-03-27 15:12] LABS: Amphetamine Screen Urine Not Detected (Not Detect); Barbiturates, Urine Not Detected (Not Detect); Benzodiazepines Screen Urine Not Detected (Not Detect); Buprenorphine Scr Not Detected (Not Detect); Cannabinoid Screen Urine Not Detected (Not Detect); Cocaine Screen Urine POSITIVE (Not Detect); Fentanyl, urine Not Detected (Not Detect); Methadone Screen, Urine Not Detected (Not Detect); Opiate Screen Urine Not Detected (Not Detect); Oxycodone Screen Urine Not Detected (Not Detect); Phencyclidine Screen Urine Not Detected (Not Detect)
[2024-03-27 15:16] VITALS: BP 92/65; PULSE 94; RESP 19; TEMP 36.6; O2SAT 97
[2024-03-27 15:18] LABS: Bacteria Urine 4+ (None Seen); Hyaline Casts Urine 0-2 /LPF (0-2); RBC Urine 0-2 /HPF (0-2); Squamous Epithelial Cell Urine 0-2 /HPF (0-2); UACC Culture Trigger YES; WBC Urine 0-5 /HPF (0-5)
[2024-03-27 15:28] LABS: Alanine Aminotransferase 8 U/L (0-31); Albumin Level 4.3 g/dL (3.5-5.0); Alkaline Phosphatase 91 U/L (39-117); Anion Gap 12 (12-20); Aspartate Amino Transferase 12 U/L (5-31); Bilirubin Total 0.3 mg/dL (0.0-1.0); Blood Urea Nitrogen 12 mg/dL (9-16); Calcium 9.8 mg/dL (8.4-10.2); Carbon Dioxide 23 mmol/L (22-29); Chloride 105 mmol/L (96-108); Creatinine Clr Calc Pharmacy 78.9; Estimated Glomerular Filt Rate > 60; Glucose Random 170 mg/dL (60-115); Potassium 3.3 mmol/L (3.3-5.1); Sodium 137 mmol/L (135-145); Total Protein 7.7 g/dL (6.5-8.0)
--- NOTE | 2024-03-27 15:50 | PC.NURSE ---
Maryanne from [facility] requesting pt. to call [facility] [place] at [phone] to complete his intake. Renetta from [facility] is now requesting [facility] to send over pt.'s medical records. Sim Madden is aware and states that she's sending over the pt.'s records now.
--- NOTE | 2024-03-27 20:06 | PC.NURSE ---
Care team with pt. Plan of care ongoing.
[2024-03-28 06:02] VITALS: BP 108/64; PULSE 76; TEMP 36.4; O2SAT 97
[2024-03-28] MEDS: Nicotine 21 MG PATCH.TD24 TRANSDERMA (08:59)
--- NOTE | 2024-03-28 16:51 | PC.ADMIT ---
Isha arrived to the unit at 1340, met with Dr. Elias signed conditional voluntary. Upon approach Isha appeared teary reported she self presented due to Wanting to end my life, she reports she recently lost her job, stated I was living with my parents and I'm not allowed to go back, so I'm homeless. She stared to cry, reports she had a binge on crack/cocaine for the last several days, she reports having racing thoughts reports I was planning to overdose on crack/cocaine and pills. She reports endorsing 10/10 depression and anxiety, when asked if she was having thoughts to hurt self stated Yes, when asked if she currently had a plan stated No, they're just thoughts, when asked if she would seek out staff if urge to hurt self occurred stated Yes. She reports she currently doesn't have a therapist or psychiatrist, I would like to have one. Per assessment Isha self presented reporting SI with plan to overdose on street morphine pills however her son stopped her, she reported she had been on a 5 day crack/cocaine nunez, she reports she utilized $1000 worth of crack/cocaine. She is currently on 15 minute checks.
[2024-03-28 17:11] VITALS: BP 95/63; PULSE 82; RESP 18; TEMP 36.4; O2SAT 97; BMI 27.3
[2024-03-28 20:00] VITALS: BP 115/72; PULSE 82; RESP 16; TEMP 36.8; O2SAT 99
[2024-03-28] MEDS: Acetaminophen 325 MG TABLET 650 MG PO (20:20)
[2024-03-28] MEDS: Prazosin HCL 1 MG CAPSULE 2 MG PO (20:20)
[2024-03-28] MEDS: hydrOXYzine HCL 25 MG TABLET PO (20:20)
[2024-03-28] MEDS: traZODone HCL 50 MG TABLET PO (20:20)
[2024-03-29 08:00] VITALS: BP 96/56; PULSE 91; RESP 18; TEMP 36.2; O2SAT 98
[2024-03-29 08:23] LABS: Estimated Average Glucose 100 mg/dL; Hemoglobin A1c % 5.1 % (<6.0)
[2024-03-29 08:26] LABS: Cholesterol 192 mg/dL (<200); HDL Cholesterol 41 mg/dL (>40); LDL Cholesterol Calculated 132 mg/dL (<100); Triglycerides 96 mg/dL (<150)
[2024-03-29 08:41] LABS: Free T4 (Free Thyroxine) 0.87 ng/dL (0.71-1.85); Thyroid Stimulating Hormone 3.68 uIU/mL (0.32-4.0)
[2024-03-29 08:58] LABS: Folate 8.5 ng/mL (> or = 4.0); Vitamin B12 324 pg/mL (200-900)
[2024-03-29] MEDS: Multivitamin TABLET 1 TAB PO (09:00)
[2024-03-29] MEDS: Thiamine HCL 100 MG TABLET PO (09:00)
[2024-03-29] MEDS: Folic Acid 1 MG TABLET PO (09:00)
[2024-03-29] MEDS: Nicotine 21 MG PATCH.TD24 TRANSDERMA (09:03)
[2024-03-29] MEDS: Baclofen 10 MG TABLET PO (09:03)
[2024-03-29] MEDS: hydrOXYzine HCL 25 MG TABLET PO ×2 (09:03→21:24)
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
[2024-03-29 20:00] VITALS: BP 101/59; PULSE 82; TEMP 36.3; O2SAT 96
[2024-03-29 21:24] VITALS: BP 120/75
[2024-03-29] MEDS: lamoTRIgine 25 MG TABLET PO (21:24)
[2024-03-29] MEDS: traZODone HCL 50 MG TABLET PO (21:24)
[2024-03-29] MEDS: Prazosin HCL 1 MG CAPSULE 2 MG PO (21:24)
[2024-03-30 07:00] VITALS: BMI 28.5
[2024-03-30 08:16] VITALS: BP 93/59; PULSE 86; RESP 16; TEMP 36.3; O2SAT 97
[2024-03-30] MEDS: Thiamine HCL 100 MG TABLET PO (08:40)
[2024-03-30] MEDS: Folic Acid 1 MG TABLET PO (08:40)
[2024-03-30] MEDS: Multivitamin TABLET 1 TAB PO (08:40)
[2024-03-30] MEDS: Nitrofurantoin Monohyd/M-Cryst 100 MG CAPSULE PO ×2 (10:10→20:13)
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
[2024-03-30 19:45] VITALS: BP 112/58; PULSE 77; RESP 18; TEMP 36.2; O2SAT 97
[2024-03-30] MEDS: clonazePAM 0.5 MG TABLET PO (20:13)
[2024-03-30] MEDS: lamoTRIgine 25 MG TABLET PO (20:13)
[2024-03-30] MEDS: Mirtazapine 7.5 MG TABLET PO (20:13)
[2024-03-30] MEDS: Prazosin HCL 5 MG CAPSULE PO (20:13)
[2024-03-31] MEDS: Multivitamin TABLET 1 TAB PO (08:28)
[2024-03-31] MEDS: Thiamine HCL 100 MG TABLET PO (08:28)
[2024-03-31] MEDS: clonazePAM 0.5 MG TABLET PO (08:28)
[2024-03-31] MEDS: Folic Acid 1 MG TABLET PO (08:28)
[2024-03-31 09:01] VITALS: BP 90/55; PULSE 90; RESP 16; TEMP 36.6; O2SAT 98
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
[2024-03-31] MEDS: risperiDONE 1 MG TABLET PO (17:21)
[2024-03-31 20:00] VITALS: BP 110/87; PULSE 87; RESP 16; TEMP 36.3; O2SAT 98
[2024-03-31] MEDS: Mirtazapine 15 MG TABLET PO (20:08)
[2024-03-31] MEDS: lamoTRIgine 25 MG TABLET PO (20:08)
[2024-03-31] MEDS: Nitrofurantoin Monohyd/M-Cryst 100 MG CAPSULE PO (20:09)
[2024-03-31] MEDS: LORazepam 0.5 MG TABLET PO (20:09)
[2024-03-31] MEDS: Prazosin HCL 5 MG CAPSULE PO (20:09)
[2024-04-01 08:25] VITALS: BP 100/61; PULSE 93; RESP 16; TEMP 36.4; O2SAT 98
[2024-04-01] MEDS: Folic Acid 1 MG TABLET PO (08:57)
[2024-04-01] MEDS: Multivitamin TABLET 1 TAB PO (08:57)
[2024-04-01] MEDS: ARIPiprazole 5 MG TABLET PO (08:58)
[2024-04-01] MEDS: Thiamine HCL 100 MG TABLET PO (08:58)
[2024-04-01] MEDS: LORazepam 0.5 MG TABLET PO ×2 (08:58→20:11)
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
[2024-04-01] MEDS: hydrOXYzine HCL 25 MG TABLET PO (11:13)
[2024-04-01] MEDS: Nicotine 21 MG PATCH.TD24 TRANSDERMA (11:13)
[2024-04-01] MEDS: risperiDONE 1 MG TABLET PO (12:17)
[2024-04-01 20:11] VITALS: BP 139/72
[2024-04-01] MEDS: Mirtazapine 15 MG TABLET PO (20:11)
[2024-04-01] MEDS: traZODone HCL 50 MG TABLET PO (20:11)
[2024-04-01] MEDS: lamoTRIgine 25 MG TABLET PO (20:11)
[2024-04-01] MEDS: Prazosin HCL 5 MG CAPSULE PO (20:11)
[2024-04-01] MEDS: Nitrofurantoin Monohyd/M-Cryst 100 MG CAPSULE PO (20:11)
[2024-04-01 20:30] VITALS: BP 139/74; PULSE 102; RESP 16; TEMP 36.2; O2SAT 98
[2024-04-02] MEDS: Acetaminophen 325 MG TABLET 650 MG PO (04:05)
[2024-04-02 08:08] VITALS: BP 84/54; PULSE 95; RESP 16; TEMP 36.4; O2SAT 98
[2024-04-02 08:48] VITALS: BP 84/54; PULSE 95; RESP 16; TEMP 36.4; O2SAT 98
[2024-04-02] MEDS: ARIPiprazole 5 MG TABLET PO (08:52)
[2024-04-02] MEDS: Thiamine HCL 100 MG TABLET PO (08:52)
[2024-04-02] MEDS: Multivitamin TABLET 1 TAB PO (08:52)
[2024-04-02] MEDS: LORazepam 0.5 MG TABLET PO ×2 (08:52→20:33)
[2024-04-02] MEDS: Folic Acid 1 MG TABLET PO (08:52)
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
[2024-04-02] MEDS: Nicotine 21 MG PATCH.TD24 TRANSDERMA (11:46)
[2024-04-02] MEDS: risperiDONE 1 MG TABLET PO (11:47)
[2024-04-02] MEDS: Baclofen 10 MG TABLET PO ×2 (11:50→20:36)
[2024-04-02 20:00] VITALS: BP 101/60; PULSE 86; RESP 18; TEMP 36.6; O2SAT 96
[2024-04-02] MEDS: traZODone HCL 50 MG TABLET PO (20:32)
[2024-04-02 20:33] VITALS: BP 105/60
[2024-04-02] MEDS: lamoTRIgine 25 MG TABLET PO (20:33)
[2024-04-02] MEDS: Prazosin HCL 5 MG CAPSULE PO (20:33)
[2024-04-02] MEDS: Nitrofurantoin Monohyd/M-Cryst 100 MG CAPSULE PO (20:33)
[2024-04-02] MEDS: Mirtazapine 15 MG TABLET PO (20:33)
[2024-04-03 08:00] VITALS: BP 102/68; PULSE 94; RESP 14; TEMP 36.4; O2SAT 99
[2024-04-03] MEDS: Thiamine HCL 100 MG TABLET PO (08:37)
[2024-04-03] MEDS: ARIPiprazole 5 MG TABLET PO (08:38)
[2024-04-03] MEDS: LORazepam 0.5 MG TABLET PO ×2 (08:38→20:38)
[2024-04-03] MEDS: Folic Acid 1 MG TABLET PO (08:38)
[2024-04-03] MEDS: Multivitamin TABLET 1 TAB PO (08:38)
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
[2024-04-03] MEDS: risperiDONE 1 MG TABLET PO (12:14)
[2024-04-03 20:00] VITALS: BP 106/61; PULSE 82; TEMP 36.4; O2SAT 98
[2024-04-03 20:30] VITALS: BP 115/63; PULSE 87; TEMP 36.3
[2024-04-03] MEDS: Nitrofurantoin Monohyd/M-Cryst 100 MG CAPSULE PO (20:38)
[2024-04-03 20:39] VITALS: BP 115/63
[2024-04-03] MEDS: Mirtazapine 15 MG TABLET PO (20:39)
[2024-04-03] MEDS: lamoTRIgine 25 MG TABLET PO (20:39)
[2024-04-03] MEDS: Prazosin HCL 5 MG CAPSULE PO (20:39)
[2024-04-04 08:00] VITALS: BP 103/69; PULSE 93; RESP 18; TEMP 36.3; O2SAT 98
[2024-04-04] MEDS: Folic Acid 1 MG TABLET PO (08:30)
[2024-04-04] MEDS: ARIPiprazole 5 MG TABLET PO (08:30)
[2024-04-04] MEDS: Thiamine HCL 100 MG TABLET PO (08:30)
[2024-04-04] MEDS: Multivitamin TABLET 1 TAB PO (08:30)
[2024-04-04] MEDS: LORazepam 0.5 MG TABLET PO (08:30)
[2024-04-04] MEDS: Nicotine 21 MG PATCH.TD24 TRANSDERMA (08:34)
[2024-04-04] MEDS: Nicotine Polacrilex Lozenge 4 MG LOZENGE BUCCAL ×2 (12:56→19:49)
[2024-04-04] MEDS: hydrOXYzine HCL 25 MG TABLET PO ×2 (13:23→19:53)
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
[2024-04-04 19:45] VITALS: BP 107/61; PULSE 91; RESP 18; TEMP 36.4; O2SAT 97
[2024-04-04] MEDS: lamoTRIgine 25 MG TABLET PO (19:49)
[2024-04-04] MEDS: clonazePAM 0.5 MG TABLET PO (19:49)
[2024-04-04] MEDS: Prazosin HCL 5 MG CAPSULE PO (19:49)
[2024-04-04] MEDS: Nitrofurantoin Monohyd/M-Cryst 100 MG CAPSULE PO (19:50)
[2024-04-04] MEDS: Mirtazapine 15 MG TABLET PO (19:50)
[2024-04-05] MEDS: Nicotine Polacrilex Lozenge 4 MG LOZENGE BUCCAL ×3 (07:17→20:14)
[2024-04-05 08:00] VITALS: BP 99/54; PULSE 86; RESP 16; TEMP 36.2; O2SAT 97
[2024-04-05] MEDS: Thiamine HCL 100 MG TABLET PO (08:44)
[2024-04-05] MEDS: Multivitamin TABLET 1 TAB PO (08:44)
[2024-04-05] MEDS: ARIPiprazole 5 MG TABLET PO (08:44)
[2024-04-05] MEDS: Folic Acid 1 MG TABLET PO (08:44)
[2024-04-05] MEDS: clonazePAM 0.5 MG TABLET PO ×2 (08:44→20:11)
[2024-04-05] MEDS: Nicotine 21 MG PATCH.TD24 TRANSDERMA (08:47)
[2024-04-05] MEDS: hydrOXYzine HCL 25 MG TABLET PO ×3 (08:48→22:39)
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
[2024-04-05 20:00] VITALS: BP 113/71; PULSE 83; RESP 18; TEMP 36.4; O2SAT 99
[2024-04-05] MEDS: Prazosin HCL 5 MG CAPSULE PO (20:11)
[2024-04-05] MEDS: lamoTRIgine 25 MG TABLET PO (20:11)
[2024-04-05] MEDS: Nitrofurantoin Monohyd/M-Cryst 100 MG CAPSULE PO (20:11)
[2024-04-05] MEDS: Mirtazapine 15 MG TABLET PO (20:11)
[2024-04-05] MEDS: diphenhydrAMINE HCL 25 MG CAPSULE 50 MG PO (20:11)
[2024-04-06 08:00] VITALS: BP 102/67; PULSE 87; RESP 16; TEMP 36.4; O2SAT 98
[2024-04-06] MEDS: Multivitamin TABLET 1 TAB PO (08:30)
[2024-04-06] MEDS: Folic Acid 1 MG TABLET PO (08:30)
[2024-04-06] MEDS: clonazePAM 0.5 MG TABLET PO (08:30)
[2024-04-06] MEDS: Thiamine HCL 100 MG TABLET PO (08:30)
[2024-04-06] MEDS: ARIPiprazole 5 MG TABLET PO (08:30)
[2024-04-06] MEDS: Nicotine Polacrilex Lozenge 4 MG LOZENGE BUCCAL (08:35)
--- NOTE | 2024-04-06 15:15 | P.DS_ITS ---
DS: Providers Provider Date of Service: 04/06/24 Date of admission: 03/28/24 12:50 Date of discharge: 04/06/24 Primary care physician: Tawana Younger NP Admitting clinician: Rama Calloway Attending physician on admission: Benjamin Calvin Attending physician on discharge: Benjamin Calvin Discharging clinician: Rama Calloway DS: Diagnosis Discharge Diagnosis (1) Bipolar 2 disorder: Status: Acute (2) Cocaine abuse: Status: Acute DS: Medications Discharge Medications Home Medications: Previous Rx's ?Medication ?Instructions ?Recorded atomoxetine 80 mg capsule 80 mg PO DAILY #30 caps 03/30/24 (Strattera) Strattera 80 mg PO DAILY ##0 04/06/24 aripiprazole 5 mg tablet (Abilify) 5 mg PO DAILY #15 tabs 04/06/24 clonazepam 0.5 mg tablet 0.5 mg PO BID #14 tabs 04/06/24 diphenhydramine HCl 25 mg capsule 50 mg (2 x 25 mg) PO BEDTIME #15 04/06/24 (Banophen) caps folic acid 1 mg tablet 1 mg PO DAILY #30 tabs 04/06/24 hydroxyzine HCl 25 mg tablet 25 mg PO Q6H PRN Anxiety #30 tabs 04/06/24 lamotrigine 25 mg tablet 25 mg PO BEDTIME #15 tabs 04/06/24 mirtazapine 15 mg tablet 15 mg PO BEDTIME #15 tabs 04/06/24 multivitamin (Daily-Melo tablet) 1 tab PO DAILY #30 tabs 04/06/24 nicotine (polacrilex) 4 mg buccal 4 mg buccal Q2H PRN Nicotine 04/06/24 lozenge Cravings #100 ea nicotine 21 mg/24 hr daily 1 patch topical DAILY #30 ea 04/06/24 transdermal patch prazosin 5 mg capsule 5 mg PO BEDTIME #15 caps 04/06/24 thiamine mononitrate (vit B1) 100 100 mg PO DAILY #30 tabs 04/06/24 mg tablet Mental Status Exam Mental Status Exam Patient Appearance: Appropriate Patient Orientation: Person, Place, Time and Situation Level of Consciousness: Alert Patient Behavior: Talkative and Good Eye Contact Mood Description: Appropriate Affect Description: Appropriate Patient Cognition Impaired: No Ability to Follow Directions: Good Speech Pattern: Spontaneous Speech Memory Description: Intact Hallucinations: None Delusions: Not Present Thought Content: positive for Suicidal Ideation (denies) Judgement: Good Data Data Completed and Pending Completed studies during hospitalization [Text1]: 03/27/24 Unknown Urine clean catch - Clean Catch Midstream Urine Culture - Final Escherichia coli DS: Summary Hospital Course Hospital Course: Admission to adult psychiatry for exacerbation of mood disorder, cocaine use, ADHD, situational stressors which included loss of a job, stopping prescribed medications, the three year anniversary of son's and feelings of guilt that she has not been a supportive parent to her children. Pt's son helped her to get treatment as she expressed SI with plan prior to admission. Medications were reviewed and adjusted. Lamictal was initiated. A TSS/CSS search was completed for ongoing care. Pt signed a three day notice of intent, planning to stay with her parents. She reported she would continue the search independently as she declined to transfer to a facility from the hospital as she wanted an opportunity to pack her belongings. Time spent discussing smoking cessation with patient: 3 to 10 minutes Status at Discharge Functional status at discharge: independent ambulation Overall status at discharge: patient is progressing back to baseline Time Spent with Patient Time attestation: Total time managing care of this patient today ____ minutes. Time spent: Less than 30 minutes Discharge Plan Discharge Anticipated Discharge Date/Time: 04/06/24 12:00 Patient Disposition: Home, Self-Care Discharge Diagnosis: Bipolar Disorder, Depressed Cocaine Use Disorder ADHD Referrals: [facility] Adult Assessment w RUFUS JARVIS [Other] - 04/12/24 10:00 am [facility] Psychiatric Evaluation w MANUEL SANDOVAL [Other] - 05/18/24 12:00 pm Tawana Younger NP [Primary Care Provider] - 04/07/24 9:20 am (in office) Discharge Medications: New hydroxyzine HCl 25 mg Tablet 25 mg PO Q6H PRN (Reason: Anxiety) Qty: 30 1RF nicotine (polacrilex) 4 mg Lozenge 4 mg buccal Q2H PRN (Reason: Nicotine Cravings) Qty: 100 0RF Discontinued trazodone 50 mg tablet 50 mg PO BEDTIME nicotine 21 mg/24 hr patch 24 hour 1 patch topical DAILY prazosin 2 mg capsule 2 mg PO BEDTIME No Action clonazepam 0.5 mg tablet 0.5 mg PO BID thiamine HCl (vitamin B1) 100 mg tablet 100 mg PO DAILY lamotrigine 25 mg tablet 25 mg PO DAILY prazosin 5 mg capsule 5 mg PO BEDTIME nicotine 21 mg/24 hr patch 24 hour 1 patch topical DAILY atomoxetine 80 mg capsule 80 mg PO QAM mirtazapine 15 mg tablet 15 mg PO BEDTIME aripiprazole 5 mg tablet 5 mg PO DAILY folic acid 1 mg tablet 1 mg PO DAILY Discharge Orders: Discharge Order (Routine); Ordered 04/06/24 Ordered By: Rama Calloway Diet: Advance to usual diet Activity on Discharge: As tolerated Stand Alone Forms: Patient Portal Discharge page, Community Support Print Language: Austrian Care Plan Goals: Mood and Behavioral Stabilization Sobriety Health Concerns: Mood and Behavioral Stabilization Sobriety Plan of Treatment: Isha plans to continue application for TSS Programs Attend scheduled appointments Take medications as directed Assessment: No SI/HI/AH/VH Plans to stay with her parents and continue application to TSS Programs Discharge on a three day notice of intent Discharge Date/Time: 04/06/24 11:00
== END 2024-04-06 11:00 | disposition home or self-care (01) | DRG 753 ==
LOC: HO.ED 15:58 → HO.PM5 03-28 12:53
PROVIDERS: Admitting Provider Clinical Nurse Specialist Psychiatric/Mental Health, Adult; Emergency Provider Emergency Medicine; PCP Nurse Practitioner Adult Health; Visit Provider Clinical Nurse Specialist Psychiatric/Mental Health, Adult
DX: F31.81 Bipolar II disorder (principal); R45.851 Suicidal ideations; F90.9 Attention-deficit hyperactivity disorder, unspecified type; Z63.4 Disappearance and death of family member; F14.10 Cocaine abuse, uncomplicated; Z59.02 Unsheltered homelessness; Z62.810 Personal history of physical and sexual abuse in childhood; Z79.899 Other long term (current) drug therapy
CPT/HCPCS: 36415; 80053; 80061; 80307; 81001; 81003; 82607; 82746; 83036; 83735; 84439; 84443; 85025; 87086; 87088; 87186; 93005; 99285; S9485

== ENCOUNTER → 2024-03-27 14:38 | Outpatient (BNV) | payer OTHER, SELFPAY | PROVIDERS: Admitting Provider Clinical Nurse Specialist Psychiatric/Mental Health, Adult; Emergency Provider Emergency Medicine; PCP Nurse Practitioner Adult Health; Visit Provider Internal Medicine Cardiovascular Disease | DX: Z01.810 Encounter for preprocedural cardiovascular examination (principal) | CPT/HCPCS: 93010 ==

== ENCOUNTER → 2024-03-28 12:50 | Outpatient (BNV) | payer OTHER, SELFPAY | PROVIDERS: Admitting Provider Clinical Nurse Specialist Psychiatric/Mental Health, Adult; Emergency Provider Emergency Medicine; PCP Nurse Practitioner Adult Health; Visit Provider Clinical Nurse Specialist Psychiatric/Mental Health, Adult | DX: F31.81 Bipolar II disorder (principal); F14.10 Cocaine abuse, uncomplicated | CPT/HCPCS: 99231; 99232 ==

== ENCOUNTER 2024-04-14 15:34 | Inpatient (IN) | payer OTHER, SELFPAY ==
--- NOTE | ~2024-04-14 | XR_ITS ---
EXAMINATION: XR CHEST CLINICAL INFORMATION: Left-sided chest tightness COMPARISON: Chest x-ray on 12/07/2015 TECHNIQUE: 2 views of the chest were obtained. FINDINGS: The cardiac silhouette is normal. There is mild chronic interstitial disease. There are no areas of consolidation. There are no pleural effusions or pneumothoraces. The bones and soft tissues are unremarkable for the patient's age. XR/XR chest 2V IMPRESSION: No acute disease.
--- NOTE | 2024-04-14 15:57 | ED.GENADULT ---
HPI - General Adult General Chief complaint: General Medical Stated complaint: possible pneumonia Time Seen by Provider: 04/14/24 16:36 Related Data Home Medications ?Medication ?Instructions ?Recorded ?Confirmed aripiprazole 5 mg tablet 5 mg PO DAILY 04/14/24 04/14/24 atomoxetine 80 mg capsule 80 mg PO QAM 04/14/24 04/14/24 clonazepam 0.5 mg tablet 0.5 mg PO BID 04/14/24 04/14/24 folic acid 1 mg tablet 1 mg PO DAILY 04/14/24 04/14/24 lamotrigine 25 mg tablet 25 mg PO DAILY 04/14/24 04/14/24 mirtazapine 15 mg tablet 15 mg PO BEDTIME 04/14/24 04/14/24 nicotine 21 mg/24 hr daily 1 patch topical DAILY 04/14/24 04/14/24 transdermal patch prazosin 5 mg capsule 5 mg PO BEDTIME 04/14/24 04/14/24 thiamine HCl (vitamin B1) 100 mg 100 mg PO DAILY 04/14/24 04/14/24 tablet Previous Rx's ?Medication ?Instructions ?Recorded hydroxyzine HCl 25 mg tablet 25 mg PO Q6H PRN Anxiety #30 tabs 04/06/24 nicotine (polacrilex) 4 mg buccal 4 mg buccal Q2H PRN Nicotine 04/06/24 lozenge Cravings #100 ea Allergies Allergy/AdvReac Type Severity Reaction Status Date / Time codeine [CODEINE] Allergy Unknown ABD PAIN Verified 04/14/24 16:02 adhesive tape Allergy Blister Verified 04/14/24 16:02 [facility] Family History Family History Father No family history of coronary artery disease Social History Social History Household Members: None Household Members Other:: currently homeless Housing: Homeless Do you presently have visiting nurse or other home services: No Patient Tobacco Use Status: Never used Tobacco Tobacco use type: Cigarette Cigarette Packs Per Day: 1 Cigarettes Per Day: 20.0 Substance Use Type: Crack/Cocaine Advance Directives: No Advance Directives Information Provided: No Do you have a plan to hurt others: No Plan service: No Sexual orientation: Straight/Heterosexual Physical Exam ED Vital Signs: Vital Signs - 24 hr 04/14/24 16:01 Temperature 99 F Pulse Rate 89 Respiratory Rate 18 Blood Pressure 112/62 Pulse Oximetry 96 Oxygen Delivery Method Room Air BMI result Body Mass Index 29.0 Course Course Course Narrative: This is a Rapid Medical Examination (RME) performed by Symone Gonzales PA-C in triage. Full HPI, ROS, assessment and treatment plan per primary provider in the Main ED. 54 yo female hx of bipolar 2 disorder, opioid and cocaine use disorder, here for eval of left sided chest tightness, cough, and headache which began today. States this is how she felt the last time she was diagnosed with pneumonia. admits to thrush secondary to advair use. Additionally states I haven't been doing well . Recently admitted to inpatient psych. signed herself out from the [facility] yesterday d/t increased anxiety. endorses SI w/o plan. denies HI. has been taking meds as prescribed. +tearful in triage. lungs clear. white film noted to tongue. Plan: labs, ekg, cxr, care team consult Reevaluation(s) Reevaluation #1: This is a duplicate note. Please refer to Dr. Shin's complete note regarding patient's visit on 04/14/2024. Medications Administered Discontinued Medications Generic Name Dose Route Start Last Admin Trade Name Freq PRN Reason Stop Dose Admin Fluconazole 150 mg 04/14/24 16:46 04/14/24 17:43 Fluconazole 150 Mg Tablet PO 04/14/24 16:47 150 mg ONCE ONE Administration Nystatin 400,000 unit 04/14/24 16:46 04/14/24 17:43 Nystatin Oral Susp 500,000 Unit/5 Ml Oral.Susp BUCCAL 04/14/24 16:47 400,000 unit ONCE ONE Administration Protocol Medical Decision Making Medical Decision Making MDM Narrative: 54-year-old female with PTSD actively suicidal without a plan. She is calm not psychotic. She does not appear to be under the influence of drugs or with any withdrawal syndrome clinically. Vitals are stable she does complain of some mild pain mostly pleuritic with cough and a cough for few days but has no signs of pneumonia pleural effusion or pneumothorax on x-ray. ECG as interpreted below nose without ischemic changes. Primary concern for her is her mental health with active suicidality we will have her evaluated by crisis. Consult Healthcare Provider Management of the patient was discussed with: Behavioral Health Provider Lab Data MDM Lab Attestation statement: I reviewed the patient's lab results. 04/14/24 16:18 04/14/24 16:18 Labs: Lab Results 04/14/24 04/14/24 Range/Units 16:18 16:48 WBC 10.8 (4.8-10.8) X10*3/uL RBC 4.37 (4.20-5.50) X10*6/uL Hgb 12.5 (12.0-16.0) g/dl Hct 36.8 L (37.0-47.0) % MCV 84.2 (80.0-98.0) fL MCH 28.6 (27.0-33.0) pg MCHC 34.0 (31.0-35.0) g/dl RDW 13.8 (11.0-16.0) % Plt Count 227 (160-400) X10*3/uL MPV 9.9 (9.4-12.3) fL Immature Gran % (Auto) 0.6 H (0.0-0.4) % Neut % (Auto) 80.8 H (45-73) % Lymph % (Auto) 12.8 L (20-40) % [place] % (Auto) 4.4 (2-11) % Eos % (Auto) 0.6 (0-4) % Baso % (Auto) 0.8 (0-2) % Lymph # (Auto) 1.4 (1.2-4.9) X10*3/uL [place] # (Auto) 0.5 (0.1-1.2) X10*3/uL Eos # (Auto) 0.1 (0.0-0.4) X10*3/uL Baso # (Auto) 0.1 (0.0-0.2) X10*3/uL Abs Immat Gran (auto) 0.06 H (0.00-0.03) X10*3/uL Absolute Neuts (auto) 8.7 H (2.0-8.3) x10*3/uL Absolute Nucleated RBC 0.000 (0.0-0.012) X10*3/uL Nucleated RBC % (auto) 0.0 (0.0-0.2) /100WBC PT 14.1 H (11.1-13.3) SEC INR 1.2 H (0.9-1.1) Sodium 138 (135-145) mmol/L Potassium 4.0 D (3.3-5.1) mmol/L Chloride 103 (96-108) mmol/L Carbon Dioxide 26 (22-29) mmol/L Anion Gap 13 (12-20) BUN 8 L (9-16) mg/dL Creatinine 0.73 (0.5-1.4) mg/dL Estim Creat Clear Calc 92.6 Estimated GFR > 60 Random Glucose 98 (60-115) mg/dL Calcium 9.8 (8.4-10.2) mg/dL Magnesium 1.9 (1.6-2.6) mg/dL Total Bilirubin 0.5 (0.0-1.0) mg/dL AST 15 (5-31) U/L ALT 15 (0-31) U/L Alkaline Phosphatase 108 (39-117) U/L Troponin I High Sens < 2.7 (<3.5-17.0) ng/L Total Protein 7.8 (6.5-8.0) g/dL Albumin 4.3 (3.5-5.0) g/dL Lipase 7 L (8-78) U/L Urine Color Yellow Urine Appearance Cloudy Urine pH 5.5 (5.0-9.0) Ur Specific [place] 1.025 (1.005-1.025) Urine Protein 30 (1+) H (Neg-Trace) mg/dL Urine Glucose (UA) Negative (Negative) mg/dL Urine Ketones Trace (Negative) mg/dL Urine Blood Small (1+) H (Negative) Urine Nitrite Negative (Negative) Ur Leukocyte Esterase Large (3+) H (Negative) Urine RBC 0-2 (0-2) /HPF Urine WBC 11-20 (0-5) /HPF Ur Squamous Epith Cells 6-10 (0-2) /HPF Urine Bacteria Trace (None Seen) Hyaline Casts 0-2 (0-2) /LPF Urine Opiates Screen Not Detected (Not Detect) Ur Buprenorphine Scrn Not Detected (Not Detect) ng/mL Ur Oxycodone Screen Not Detected (Not Detect) ng/mL Urine Methadone Screen Not Detected (Not Detect) ng/mL Urine Fentanyl Screen Not Detected (Not Detect) Ur Barbiturates Screen Not Detected (Not Detect) Ur Phencyclidine Scrn Not Detected (Not Detect) Ur Amphetamines Screen Not Detected (Not Detect) U Benzodiazepines Scrn Not Detected (Not Detect) Urine Cocaine Screen POSITIVE H (Not Detect) U Marijuana (THC) Screen Not Detected (Not Detect) Ethyl Alcohol < 10 mg/dL Influenza Type A (PCR) NEGATIVE (Negative) Influenza Type B (PCR) NEGATIVE (Negative) RSV RNA Qual (PCR) NEGATIVE (Negative) SARS-CoV-2 RNA (RT-PCR) NEGATIVE (Negative) Independent Interpretation I performed an independent interpretation of an: EKG (Sinus rhythm rate 86, QTC 471. No ischemic changes. Normal axis.) Radiology Impression Discussion of test interpretation with radiology: I have reviewed the radiologist's reading. Social Determinants Patient?s care significantly limited by Social Determinants of Health including: Problems related to primary support group, Problems related to employment and Other Social Determinant of Health (Difficulty following outpatient psychiatric recommendations) Discharge Plan Discharge Clinical Impression: Cocaine abuse, Suicidal thoughts Patient Disposition: Still a Patient Prescriptions: No Action clonazepam 0.5 mg tablet 0.5 mg PO BID thiamine HCl (vitamin B1) 100 mg tablet 100 mg PO DAILY lamotrigine 25 mg tablet 25 mg PO DAILY prazosin 5 mg capsule 5 mg PO BEDTIME nicotine 21 mg/24 hr patch 24 hour 1 patch topical DAILY atomoxetine 80 mg capsule 80 mg PO QAM mirtazapine 15 mg tablet 15 mg PO BEDTIME aripiprazole 5 mg tablet 5 mg PO DAILY folic acid 1 mg tablet 1 mg PO DAILY hydroxyzine HCl 25 mg Tablet 25 mg PO Q6H PRN (Reason: Anxiety) Qty: 30 1RF nicotine (polacrilex) 4 mg Lozenge 4 mg buccal Q2H PRN (Reason: Nicotine Cravings) Qty: 100 0RF Print Language: Serbian
[2024-04-14 16:01] VITALS: BP 112/62; PULSE 89; RESP 18; TEMP 37.2; O2SAT 96; BMI 29.0
--- NOTE | 2024-04-14 16:03 | ECG_ITS ---
Test Reason : chest pain Blood Pressure : / mmHG Vent. Rate : 086 BPM Atrial Rate : 086 BPM P-R Int : 146 ms QRS Dur : 092 ms QT Int : 394 ms P-R-T Axes : 074 014 036 degrees QTc Int : 471 ms Normal sinus rhythm cannot exclude old Septal infarct , age undetermined Abnormal ECG When compared with ECG of 27-MAR-2024 14:43, No significant change was found Referred By: Maricarmen Gonzales Electronically Signed By:TATI GUERRA
[2024-04-14 16:23] LABS: MANUAL DIFF FLAG NO
[2024-04-14 16:25] LABS: Basophils Absolute Auto 0.1 X10*3/uL (0.0-0.2); Basophils Percent Auto 0.8 % (0-2); Eosinophils Absolute Auto 0.1 X10*3/uL (0.0-0.4); Eosinophils Percent Auto 0.6 % (0-4); Hematocrit 36.8 % (37.0-47.0); Hemoglobin 12.5 g/dl (12.0-16.0); Imm Gran Abs Auto 0.06 X10*3/uL (0.00-0.03); Imm Gran Pct Auto 0.6 % (0.0-0.4); Lymphocytes Absolute Auto 1.4 X10*3/uL (1.2-4.9); Lymphocytes Percent Auto 12.8 % (20-40); Mean Corpuscular Hemoglobin 28.6 pg (27.0-33.0); Mean Corpuscular Volume 84.2 fL (80.0-98.0); Mean Platelet Volume 9.9 fL (9.4-12.3); Monocytes Absolute Auto 0.5 X10*3/uL (0.1-1.2); Monocytes Percent Auto 4.4 % (2-11); Neutrophils Absolute Auto 8.7 x10*3/uL (2.0-8.3); Neutrophils Percent Auto 80.8 % (45-73); Platelet Count 227 X10*3/uL (160-400); Red Blood Count 4.37 X10*6/uL (4.20-5.50); Red Cell Distribution Width 13.8 % (11.0-16.0); White Blood Count 10.8 X10*3/uL (4.8-10.8)
[2024-04-14 16:30] LABS: INTERNATIONAL NORM RATIO 1.2 (0.9-1.1); Prothrombin Time 14.1 SEC (11.1-13.3)
[2024-04-14 16:37] LABS: Ethanol < 10 mg/dL
--- NOTE | 2024-04-14 16:37 | ED.PSYCH ---
HPI - Psych General Chief Complaint: General Medical Stated Complaint: possible pneumonia Time Seen by Provider: 04/14/24 16:36 History of Present Illness ED Provider: Bryant Shin MD HPI Narrative: 54-year-old female with a crack cocaine use disorder, alcohol use disorder, PTSD just checked yesterday from an residential substance use/mental health facility [facility]. She reports ongoing suicidality hopelessness. No plan specified. Ongoing crack cocaine use last use was this morning including alcohol. She endorses about 2 days of cough mild lower sternal chest discomfort mostly with the cough. No exertional chest pain or known coronary disease. No pain associated with cocaine use. Denies chest wall trauma hemoptysis leg swelling history of DVT or PE. No abdominal pain nausea vomiting. Mild occipital headache. Related Data Home Medications ?Medication ?Instructions ?Recorded ?Confirmed aripiprazole 5 mg tablet 5 mg PO DAILY 04/14/24 04/14/24 atomoxetine 80 mg capsule 80 mg PO QAM 04/14/24 04/14/24 clonazepam 0.5 mg tablet 0.5 mg PO BID 04/14/24 04/14/24 folic acid 1 mg tablet 1 mg PO DAILY 04/14/24 04/14/24 lamotrigine 25 mg tablet 25 mg PO DAILY 04/14/24 04/14/24 mirtazapine 15 mg tablet 15 mg PO BEDTIME 04/14/24 04/14/24 nicotine 21 mg/24 hr daily 1 patch topical DAILY 04/14/24 04/14/24 transdermal patch prazosin 5 mg capsule 5 mg PO BEDTIME 04/14/24 04/14/24 thiamine HCl (vitamin B1) 100 mg 100 mg PO DAILY 04/14/24 04/14/24 tablet Previous Rx's ?Medication ?Instructions ?Recorded hydroxyzine HCl 25 mg tablet 25 mg PO Q6H PRN Anxiety #30 tabs 04/06/24 nicotine (polacrilex) 4 mg buccal 4 mg buccal Q2H PRN Nicotine 04/06/24 lozenge Cravings #100 ea Allergies Allergy/AdvReac Type Severity Reaction Status Date / Time codeine [CODEINE] Allergy Unknown ABD PAIN Verified 04/14/24 16:02 adhesive tape Allergy Blister Verified 04/14/24 16:02 [facility] Family History Family History Father No family history of coronary artery disease Social History Social History Household Members: None Household Members Other:: currently homeless Housing: Homeless Do you presently have visiting nurse or other home services: No Patient Tobacco Use Status: Never used Tobacco Tobacco use type: Cigarette Cigarette Packs Per Day: 1 Cigarettes Per Day: 20.0 Substance Use Type: Crack/Cocaine Advance Directives: No Advance Directives Information Provided: No Do you have a plan to hurt others: No Plan service: No Sexual orientation: Straight/Heterosexual Physical Exam Vital Signs: Vital Signs: Last Vital Signs Temp 99 F 04/14/24 16:01 Pulse 89 04/14/24 16:01 Resp 18 04/14/24 16:01 BP 112/62 04/14/24 16:01 Pulse Ox 96 04/14/24 16:01 O2 Del Method Room Air 04/14/24 16:01 BMI result Body Mass Index 29.0 Const: Other: EXAM: Gen: Alert, awake, well appearing, well hydrated. Tearful, flat affect seems sad and depressed Head: Atraumatic Eyes: Anicteric, Normal conjunctiva. ENT: Moist mucosa, no pallor. ?Whitish film on the tongue suggestive of candidiasis Neck: Supple. Respiratory: Breathing comfortably, No distress.Clear to auscultation bilaterally, symmetric chest expansion, No wheeze, rales, ronchi. Cardiovascular: Regular rate and rhythm. No murmurs or rub. Well perfused periphery, warm extremities. No edema. ? Abdominal: Soft, no objective distension. No palpable masses or obvious organomegaly. No focal tenderness, no guarding, no rebound tenderness or other peritoneal findings. : No flank tenderness. Neuro: Alert. Gross movement of all extremities intact. ? Vital signs: See flowsheet Medications Administered Discontinued Medications Generic Name Dose Route Start Last Admin Trade Name Freq PRN Reason Stop Dose Admin Fluconazole 150 mg 04/14/24 16:46 04/14/24 17:43 Fluconazole 150 Mg Tablet PO 04/14/24 16:47 150 mg ONCE ONE Administration Nystatin 400,000 unit 04/14/24 16:46 04/14/24 17:43 Nystatin Oral Susp 500,000 Unit/5 Ml Oral.Susp BUCCAL 04/14/24 16:47 400,000 unit ONCE ONE Administration Protocol Medical Decision Making Medical Decision Making [facility] Narrative: [age] female with crack cocaine use disorder, alcohol use disorder, PTSD mostly presenting chief complaint of suicidal thoughts hopelessness ?I do not want to live anymore?. She is looking for mental health have primarily but endorses some medical symptoms including chest pain mostly associated with cough. No phlegm or hemoptysis or wheezing or focal lung sounds. Oxygen is normal and there is no labored breathing. Symptomatology mostly suggestive of bronchitis/pruritus possible pneumonia we will look at the x-ray to evaluate for this. Doubt ACS or PE given the character and lack of significant risk factors. More importantly the patient is quite distressed and suicidal we will have her evaluated by crisis __ Signed out to overnight physician at 21:00 to follow up on recommendations from crisis Lab Data 04/14/24 16:18 04/14/24 16:18 Labs: Lab Results 04/14/24 04/14/24 Range/Units 16:18 16:48 WBC 10.8 (4.8-10.8) X10*3/uL RBC 4.37 (4.20-5.50) X10*6/uL Hgb 12.5 (12.0-16.0) g/dl Hct 36.8 L (37.0-47.0) % MCV 84.2 (80.0-98.0) fL MCH 28.6 (27.0-33.0) pg MCHC 34.0 (31.0-35.0) g/dl RDW 13.8 (11.0-16.0) % Plt Count 227 (160-400) X10*3/uL MPV 9.9 (9.4-12.3) fL Immature Gran % (Auto) 0.6 H (0.0-0.4) % Neut % (Auto) 80.8 H (45-73) % Lymph % (Auto) 12.8 L (20-40) % [place] % (Auto) 4.4 (2-11) % Eos % (Auto) 0.6 (0-4) % Baso % (Auto) 0.8 (0-2) % Lymph # (Auto) 1.4 (1.2-4.9) X10*3/uL [place] # (Auto) 0.5 (0.1-1.2) X10*3/uL Eos # (Auto) 0.1 (0.0-0.4) X10*3/uL Baso # (Auto) 0.1 (0.0-0.2) X10*3/uL Abs Immat Gran (auto) 0.06 H (0.00-0.03) X10*3/uL Absolute Neuts (auto) 8.7 H (2.0-8.3) x10*3/uL Absolute Nucleated RBC 0.000 (0.0-0.012) X10*3/uL Nucleated RBC % (auto) 0.0 (0.0-0.2) /100WBC PT 14.1 H (11.1-13.3) SEC INR 1.2 H (0.9-1.1) Sodium 138 (135-145) mmol/L Potassium 4.0 D (3.3-5.1) mmol/L Chloride 103 (96-108) mmol/L Carbon Dioxide 26 (22-29) mmol/L Anion Gap 13 (12-20) BUN 8 L (9-16) mg/dL Creatinine 0.73 (0.5-1.4) mg/dL Estim Creat Clear Calc 92.6 Estimated GFR > 60 Random Glucose 98 (60-115) mg/dL Calcium 9.8 (8.4-10.2) mg/dL Magnesium 1.9 (1.6-2.6) mg/dL Total Bilirubin 0.5 (0.0-1.0) mg/dL AST 15 (5-31) U/L ALT 15 (0-31) U/L Alkaline Phosphatase 108 (39-117) U/L Troponin I High Sens < 2.7 (<3.5-17.0) ng/L Total Protein 7.8 (6.5-8.0) g/dL Albumin 4.3 (3.5-5.0) g/dL Lipase 7 L (8-78) U/L Urine Color Yellow Urine Appearance Cloudy Urine pH 5.5 (5.0-9.0) Ur Specific [place] 1.025 (1.005-1.025) Urine Protein 30 (1+) H (Neg-Trace) mg/dL Urine Glucose (UA) Negative (Negative) mg/dL Urine Ketones Trace (Negative) mg/dL Urine Blood Small (1+) H (Negative) Urine Nitrite Negative (Negative) Ur Leukocyte Esterase Large (3+) H (Negative) Urine RBC 0-2 (0-2) /HPF Urine WBC 11-20 (0-5) /HPF Ur Squamous Epith Cells 6-10 (0-2) /HPF Urine Bacteria Trace (None Seen) Hyaline Casts 0-2 (0-2) /LPF Urine Opiates Screen Not Detected (Not Detect) Ur Buprenorphine Scrn Not Detected (Not Detect) ng/mL Ur Oxycodone Screen Not Detected (Not Detect) ng/mL Urine Methadone Screen Not Detected (Not Detect) ng/mL Urine Fentanyl Screen Not Detected (Not Detect) Ur Barbiturates Screen Not Detected (Not Detect) Ur Phencyclidine Scrn Not Detected (Not Detect) Ur Amphetamines Screen Not Detected (Not Detect) U Benzodiazepines Scrn Not Detected (Not Detect) Urine Cocaine Screen POSITIVE H (Not Detect) U Marijuana (THC) Screen Not Detected (Not Detect) Ethyl Alcohol < 10 mg/dL Influenza Type A (PCR) NEGATIVE (Negative) Influenza Type B (PCR) NEGATIVE (Negative) RSV RNA Qual (PCR) NEGATIVE (Negative) SARS-CoV-2 RNA (RT-PCR) NEGATIVE (Negative) Discharge Plan Discharge Clinical Impression: Cocaine abuse, Suicidal thoughts Patient Disposition: Still a Patient Prescriptions: No Action clonazepam 0.5 mg tablet 0.5 mg PO BID thiamine HCl (vitamin B1) 100 mg tablet 100 mg PO DAILY lamotrigine 25 mg tablet 25 mg PO DAILY prazosin 5 mg capsule 5 mg PO BEDTIME nicotine 21 mg/24 hr patch 24 hour 1 patch topical DAILY atomoxetine 80 mg capsule 80 mg PO QAM mirtazapine 15 mg tablet 15 mg PO BEDTIME aripiprazole 5 mg tablet 5 mg PO DAILY folic acid 1 mg tablet 1 mg PO DAILY hydroxyzine HCl 25 mg Tablet 25 mg PO Q6H PRN (Reason: Anxiety) Qty: 30 1RF nicotine (polacrilex) 4 mg Lozenge 4 mg buccal Q2H PRN (Reason: Nicotine Cravings) Qty: 100 0RF Print Language: Nicaraguan
[2024-04-14 16:40] LABS: Alanine Aminotransferase 15 U/L (0-31); Albumin Level 4.3 g/dL (3.5-5.0); Alkaline Phosphatase 108 U/L (39-117); Anion Gap 13 (12-20); Aspartate Amino Transferase 15 U/L (5-31); Bilirubin Total 0.5 mg/dL (0.0-1.0); Blood Urea Nitrogen 8 mg/dL (9-16); Calcium 9.8 mg/dL (8.4-10.2); Carbon Dioxide 26 mmol/L (22-29); Chloride 103 mmol/L (96-108); Creatinine Clr Calc Pharmacy 92.6; Estimated Glomerular Filt Rate > 60; Glucose Random 98 mg/dL (60-115); Lipase 7 U/L (8-78); Magnesium 1.9 mg/dL (1.6-2.6); Sodium 138 mmol/L (135-145); Total Protein 7.8 g/dL (6.5-8.0)
[2024-04-14 16:51] LABS: Troponin-I High Sensitivity < 2.7 ng/L (<3.5-17.0)
[2024-04-14 17:03] LABS: Appearance Urine Cloudy; Glucose Urine UA Negative (Negative); Leukocyte Esterase Urine Large (3+) (Negative); Nitrite Urine Negative (Negative); PH 5.5 (5.0-9.0); Specific Gravity - Urine 1.025 (1.005-1.025); UMIC TRIGGER UACC YES; Urine Blood Small (1+) (Negative); Urine Ketones Trace mg/dL (Negative); Urine Protein 30 (1+) mg/dL (Neg-Trace)
[2024-04-14 17:08] LABS: Amphetamine Screen Urine Not Detected (Not Detect); Barbiturates, Urine Not Detected (Not Detect); Benzodiazepines Screen Urine Not Detected (Not Detect); Buprenorphine Scr Not Detected (Not Detect); Cannabinoid Screen Urine Not Detected (Not Detect); Cocaine Screen Urine POSITIVE (Not Detect); Color Urine Yellow; Fentanyl, urine Not Detected (Not Detect); Methadone Screen, Urine Not Detected (Not Detect); Opiate Screen Urine Not Detected (Not Detect); Oxycodone Screen Urine Not Detected (Not Detect); Phencyclidine Screen Urine Not Detected (Not Detect)
[2024-04-14 17:08] LABS: Influenza A PCR NEGATIVE (Negative); Influenza B PCR NEGATIVE (Negative); Resp Syncy Virus RNA Qual PCR NEGATIVE (Negative); SARS COV2 PCR INHOUSE NEGATIVE (Negative)
[2024-04-14 17:28] LABS: Bacteria Urine Trace (None Seen); Hyaline Casts Urine 0-2 /LPF (0-2); RBC Urine 0-2 /HPF (0-2); UACC Culture Trigger YES
[2024-04-14] MEDS: Nystatin Oral Susp 500,000 UNIT/5 ML ORAL.SUSP 400000 UNIT BUCCAL (17:43)
[2024-04-14] MEDS: Fluconazole 150 MG TABLET PO (17:43)
[2024-04-15] VITALS: BP 110/73; PULSE 86; TEMP 36.5; O2SAT 99
[2024-04-15 00:10] VITALS: BP 110/73
[2024-04-15] MEDS: Prazosin HCL 5 MG CAPSULE PO ×2 (00:10→22:16)
[2024-04-15] MEDS: clonazePAM 0.5 MG TABLET PO ×3 (00:10→22:15)
[2024-04-15] MEDS: Mirtazapine 15 MG TABLET PO ×2 (00:10→22:16)
[2024-04-15] MEDS: Acetaminophen 325 MG TABLET 975 MG PO (00:12)
--- NOTE | 2024-04-15 05:29 | PC.NURSE ---
Patient slept through the night, no distress observed/reported except headache resolved with Tylenol, meds and meals compliant, VSS, no behavior and safety concerns, disposition per care team is voluntary dual diagnosis bed search, will continue to monitor
[2024-04-15 06:00] VITALS: RESP 16
--- NOTE | 2024-04-15 08:10 | PC.NURSE ---
Assumed care of patient at 0645, patient appears to be sleeping, respirations even and unlabored, no apparent distress. continue plan of care for dual dx bedsearch
[2024-04-15] MEDS: Folic Acid 1 MG TABLET PO (08:47)
[2024-04-15] MEDS: lamoTRIgine 25 MG TABLET PO (08:47)
[2024-04-15] MEDS: Nicotine 21 MG PATCH.TD24 TRANSDERMA (08:47)
[2024-04-15] MEDS: ARIPiprazole 5 MG TABLET PO (08:47)
[2024-04-15] MEDS: Thiamine HCL 100 MG TABLET PO (08:47)
[2024-04-15 15:00] VITALS: BP 102/58; PULSE 85; RESP 16; TEMP 36.6; O2SAT 99; BMI 28.7
[2024-04-15] MEDS: hydrOXYzine HCL 25 MG TABLET PO ×2 (15:58→22:15)
[2024-04-15] MEDS: Acetaminophen 325 MG TABLET 650 MG PO (15:58)
[2024-04-15] MEDS: Nicotine Polacrilex Lozenge 4 MG LOZENGE BUCCAL (17:47)
[2024-04-15] MEDS: Fluconazole 150 MG TABLET PO (19:39)
[2024-04-15 20:00] VITALS: BP 100/56; PULSE 88; RESP 16; TEMP 36.4; O2SAT 98
--- NOTE | 2024-04-15 20:39 | PC.ADMIT ---
Isha Galvin is a 54 y/o female admitted to from [facility] at 1450 on a CV. Isha is known to the CARE Team with two prior assessments in November 2021 and March 2024. Pt was recently discharged from for SI and substance abuse. Pt self-presented to ED on 04/14/2024 with complaints of increased anxiety, and ongoing SI. Pt reported she went to the [facility] after discharge, but left the [facility] on 04/13/2024 after feeling triggered by the environment there. Pt stated when she left the [facility] she stayed up all night and consumed ?20 nips and smoked $200 worth of crack?. Pt stated that the [facility] was not the right environment for her, and is seeking assistance with alternative programs after she completes IPLOC. Pt reported she felt she had left [facility] too early, and hoped to be able to return and finish treatment. Pt has a long hx of Cocaine use and is seeking dual diagnosis treatment for depression/SI and substance abuse. In ED pt complained of cough. Chest Xray ruled out pneumonia and bronchitis. COVID/RSV/FLU were negative. Pt also complained of urinary burning/itching along with white vaginal discharge. Pt was given two doses of Diflucan (04/13 and 04/14). Urine clean catch showed UTI. Pt to start antibiotics to treat UTI after swab is obtained for BV Panel/STI testing. Lab orders in and awaiting collection. Antibiotics ordered and to be administered after swab collected. Pt is also being treated for Thrush and has Nystatin Oral Susp ordered QID. Pt believes she acquired Thrush from using Advair. Pt has upper and lower dentures and was provided with cup and denture supplies. Pt cooperative with skin check on arrival. Pt instructed staff to be extra careful going through her belongings. Pt stated she was not sure if she had any paraphernalia in her purse, but added ?I definitely don?t have needles but I think there is scissors and maybe some paraphernalia, but I just don?t remember?. Pt polite and cooperative. Pt endorsed ongoing SI without plan, as well as anxiety/depression. Pt reported she could seek out staff if feeling unsafe. Pt signed release for her mother only. Pt does not want staff talking to anyone else. Pt oriented to unit and placed on 15 minute checks.
[2024-04-15 22:16] VITALS: BP 125/75
[2024-04-15] MEDS: Nystatin Oral Susp 500,000 UNIT/5 ML ORAL.SUSP 400000 UNIT PO (22:16)
[2024-04-16] MEDS: Acetaminophen 325 MG TABLET 650 MG PO (05:27)
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
[2024-04-16 08:00] VITALS: BP 87/54; PULSE 75; RESP 14; TEMP 36.4; O2SAT 96
[2024-04-16 08:03] LABS: Alanine Aminotransferase 14 U/L (0-31); Alkaline Phosphatase 95 U/L (39-117); Anion Gap 12 (12-20); Aspartate Amino Transferase 13 U/L (5-31); Bilirubin Total 0.2 mg/dL (0.0-1.0); Blood Urea Nitrogen 15 mg/dL (9-16); Calcium 9.6 mg/dL (8.4-10.2); Carbon Dioxide 27 mmol/L (22-29); Chloride 104 mmol/L (96-108); Cholesterol 212 mg/dL (<200); Creatinine Clr Calc Pharmacy 94.6; Estimated Glomerular Filt Rate > 60; Glucose Fasting 90 mg/dL (60-99); HDL Cholesterol 54 mg/dL (>40); LDL Cholesterol Calculated 140 mg/dL (<100); Potassium 4.1 mmol/L (3.3-5.1); Sodium 139 mmol/L (135-145); Total Protein 7.3 g/dL (6.5-8.0); Triglycerides 93 mg/dL (<150)
[2024-04-16 08:54] LABS: Bacterial Vaginosis PCR NEGATIVE (Negative); Candida Group PCR NOT DETECTED (Not Detect); Candida glab krusei PCR NOT DETECTED (Not Detect); Trichomonas vaginalis PCR DETECTED (Not Detect)
[2024-04-16 09:20] LABS: CT PCR NOT DETECTED (Not Detect.); NG PCR NOT DETECTED (Not Detect.)
[2024-04-16] MEDS: lamoTRIgine 25 MG TABLET PO (09:25)
[2024-04-16] MEDS: Thiamine HCL 100 MG TABLET PO (09:25)
[2024-04-16] MEDS: Amoxicillin 500 MG CAPSULE PO ×3 (09:25→20:51)
[2024-04-16] MEDS: Folic Acid 1 MG TABLET PO (09:25)
[2024-04-16] MEDS: clonazePAM 0.5 MG TABLET PO ×2 (09:25→20:51)
[2024-04-16] MEDS: ARIPiprazole 5 MG TABLET PO (09:25)
[2024-04-16] MEDS: Nystatin Oral Susp 500,000 UNIT/5 ML ORAL.SUSP 400000 UNIT PO ×4 (10:01→20:52)
[2024-04-16] MEDS: hydrOXYzine HCL 25 MG TABLET PO ×2 (16:45→18:42)
[2024-04-16 18:33] VITALS: BP 94/50
[2024-04-16] MEDS: Nicotine Polacrilex Lozenge 4 MG LOZENGE BUCCAL (18:45)
--- NOTE | 2024-04-16 18:45 | PC.NURSE ---
per Dionicio Blackburn to give additional Hydroxyzine dose 25mg earlier than 6 hours.
[2024-04-16 19:08] VITALS: BP 91/55; PULSE 87; RESP 18; TEMP 36.4; O2SAT 96
[2024-04-16 20:45] VITALS: BP 82/50; PULSE 80
[2024-04-16] MEDS: Mirtazapine 15 MG TABLET PO (20:51)
[2024-04-16] MEDS: traZODone HCL 50 MG TABLET PO ×2 (20:57→22:46)
[2024-04-16 21:12] VITALS: BP 106/64; PULSE 76
[2024-04-16 22:55] VITALS: BP 100/57; PULSE 79
[2024-04-17 07:41] VITALS: BP 99/56; PULSE 71; RESP 14; TEMP 36.3; O2SAT 99
[2024-04-17] MEDS: Amoxicillin 500 MG CAPSULE PO ×3 (08:44→21:13)
[2024-04-17] MEDS: lamoTRIgine 25 MG TABLET PO (08:44)
[2024-04-17] MEDS: ARIPiprazole 5 MG TABLET PO (08:44)
[2024-04-17] MEDS: Folic Acid 1 MG TABLET PO (08:44)
[2024-04-17] MEDS: Thiamine HCL 100 MG TABLET PO (08:44)
[2024-04-17] MEDS: clonazePAM 0.5 MG TABLET PO ×2 (08:44→21:13)
[2024-04-17] MEDS: Nystatin Oral Susp 500,000 UNIT/5 ML ORAL.SUSP 400000 UNIT PO ×4 (08:46→21:14)
[2024-04-17] MEDS: Nicotine 21 MG PATCH.TD24 TRANSDERMA (08:48)
[2024-04-17] MEDS: hydrOXYzine HCL 25 MG TABLET PO ×2 (09:15→21:13)
--- NOTE | 2024-04-17 10:55 | PC.NURSE ---
Atomoxetine 80mg brought in with patient at admission per medication reconciliation of home meds brought with patient. Bottle of said medication taken out of home med bag that was confirmed/stored with pharmacy. Medication reconciliation of home meds brought at admission re-done. Atomoxetine 80mg to be made available, NF, for use.
[2024-04-17] MEDS: Nicotine Polacrilex Lozenge 4 MG LOZENGE BUCCAL ×2 (10:58→16:21)
[2024-04-17 12:09] VITALS: BP 96/58; PULSE 73; RESP 16
--- NOTE | 2024-04-17 15:01 | MHC.RECOVRN ---
Met with pt on M3 after consult placed to Addiction Medicine for cocaine use. Pt had presented to the ED reporting she thought she had pneumonia and thrush as well as SI. Upon evaluation, pt admitted for Bipolar Disorder Type II and SI. Pt awake, alert, easily engages in conversation. Pt reports night prior to presentation using $200 cocaine, INH, as well as 20 nips Fireball. Pt reports last drink prior to that night was January 2023. Pt reports last cocaine use was earlier this month prior to last behavioral health admission. Pt reports after she discharged from [facility]5 she was admitted to [facility], where her daughter's father was also admitted, and she began having flashbacks and nightmares. Due to those things, pt discharged, used substances one night, and then presented to the ED. Pt reports she believes her substance use is due to underlying mental health issues and that she needs to have those addressed prior to addressing substance use. Pt reports longest period of recovery was 10 years, 25 years ago. Pt reports at that time she did not have a way to obtain cocaine so she was able to abstain. 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 Pt reports she has been to [facility] treatment in the past, including CSS and TSS. Pt reports she does well with structure and groups/meetings and would like to go to [facility] after dc from M3. Pt reports she has utilized baclofen in the past to address cocaine cravings and would like to restart this medication. Pt provided with written recovery resources and information as well as t/w contact information. Denies questions or concerns at this time. Discussed with Yoli Reyes APRN. Plan for pyridine recovery operator to meet with pt this evening.
[2024-04-17 15:04] VITALS: BP 126/71; PULSE 76; RESP 16; O2SAT 97
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
--- NOTE | 2024-04-17 18:26 | MHC.RECOVSUP ---
? Reason for consult Recovery Support o Current location: [phone] o Identified substance use concern: - Support ? Intervention: o Community resources provided o Harm reduction discussion ? Plan: o Patient to follow up with [facility] after discharge ? Additional information: Met with Patient and we talked about recovery and the many different pathways. we talked about harm reduction and the many resources.. Patient stated that she would like a public safety officer.. And also would like to go to a residential recovery house..
[2024-04-17 21:03] VITALS: BP 98/54; PULSE 76; RESP 16; TEMP 36.5; O2SAT 99
[2024-04-17] MEDS: traZODone HCL 50 MG TABLET PO (21:13)
[2024-04-17] MEDS: Mirtazapine 15 MG TABLET PO ×2 (21:14→22:05)
[2024-04-18] MEDS: hydrOXYzine HCL 25 MG TABLET PO ×2 (06:24→15:50)
[2024-04-18 07:15] VITALS: BP 81/53; PULSE 81; RESP 16; RESP 18; TEMP 36.2; O2SAT 98
[2024-04-18] MEDS: Nystatin Oral Susp 500,000 UNIT/5 ML ORAL.SUSP 400000 UNIT PO ×4 (08:54→20:15)
[2024-04-18] MEDS: lamoTRIgine 25 MG TABLET PO (08:55)
[2024-04-18] MEDS: Amoxicillin 500 MG CAPSULE PO ×3 (08:55→20:14)
[2024-04-18] MEDS: clonazePAM 0.5 MG TABLET PO ×2 (08:55→20:15)
[2024-04-18] MEDS: Thiamine HCL 100 MG TABLET PO (08:56)
[2024-04-18] MEDS: Folic Acid 1 MG TABLET PO (08:56)
[2024-04-18] MEDS: ARIPiprazole 5 MG TABLET PO (08:56)
[2024-04-18] MEDS: Nicotine 21 MG PATCH.TD24 TRANSDERMA (10:03)
--- NOTE | 2024-04-18 11:23 | HO.PSYCHPN ---
Subjective Subjective Date of Service: 04/18/24 Reason For Visit: SI Subjective Notes: Conditional Voluntary Interim History: Reviewed with Dr. Calvin. Pt reports feeling good today; pt stated, I'm just hoping to get into a program. I spoke with the recovery agent yesterday which was good . Pt reports improved sleep last night. pt denies SI/HI/VH/AH. Pt requesting to be restarted on baclofen which she reports was beneficial in the past. Start: Baclofen 10mg PO BID Medication Compliance: Yes Side effects from medications: No Attending Groups: Yes Review of Systems Constitutional: Reports as per HPI Eyes: Reports as per HPI Reports as per HPI Cardiovascular: Reports as per HPI Respiratory: Reports as per HPI Gastrointestinal: Reports as per HPI Musculoskeletal: Reports as per HPI Skin/Breast: Reports as per HPI Reports as per HPI Psychiatric: Reports as per HPI Endocrine: Reports as per HPI Hematologic/Lymphatic: Reports as per HPI Allergic/Immunologic: Reports as per HPI Mental Status Exam Mental Status Exam Narrative: Pt is alert and oriented; behavior is cooperative and calm; dressed in casual attire; mood is described as good ; eye contact appropriate; Speech is normal rate, volume and not pressured; thought process is organized and goal directed; Thought content is on tx; denies SI/HI/VH/AH. Diagnostics Vital Signs (24Hr): Vital Signs - 24 hr 04/17/24 12:09 04/17/24 15:04 04/17/24 21:03 Temperature 97.7 F Pulse Rate 73 76 76 Respiratory Rate 16 16 16 Blood Pressure 96/58 L 126/71 98/54 L Pulse Oximetry 97 99 Oxygen Delivery Method Room Air Room Air 04/18/24 07:15 04/18/24 07:15 Temperature 97.2 F 97.2 F Pulse Rate 81 81 Respiratory Rate 18 16 Blood Pressure 81/53 L 81/53 L Pulse Oximetry 98 98 Oxygen Delivery Method Room Air Room Air BMI result Body Mass Index 28.7 Labs 04/14/24 16:18 04/16/24 07:37 Imaging Radiology Impressions: ITS Impressions Chest X-Ray 04/14/24 16:40 IMPRESSION: No acute disease. Medications Medications Current Medications Acetaminophen (Acetaminophen 325 Mg Tablet) 650 mg PO Q6H PRN PRN Reason: Headache/Pain Mild Scale (1-3) Last Admin: 04/16/24 05:27 Dose: 650 mg Al Hydroxide/Mg Hydroxide (Magnesium Hydrox/Alum Hydrox 30 Ml Oral.Susp) 30 ml PO Q6H PRN PRN Reason: Heartburn/Nausea Amoxicillin (Amoxicillin 500 Mg Capsule) 500 mg PO TID [facility] Stop: 04/22/24 09:01 Last Admin: 04/18/24 08:55 Dose: 500 mg Aripiprazole (Aripiprazole 5 Mg Tablet) 5 mg PO DAILY [facility] Last Admin: 04/18/24 08:56 Dose: 5 mg Clonazepam (Clonazepam 0.5 Mg Tablet) 0.5 mg PO BID [facility] Last Admin: 04/18/24 08:55 Dose: 0.5 mg Folic Acid (Folic Acid 1 Mg Tablet) 1 mg PO DAILY [facility] Last Admin: 04/18/24 08:56 Dose: 1 mg Hydroxyzine HCl (Hydroxyzine Hcl 25 Mg Tablet) 25 mg PO Q6H PRN PRN Reason: Anxiety Last Admin: 04/18/24 06:24 Dose: 25 mg Lamotrigine (Lamotrigine 25 Mg Tablet) 25 mg PO DAILY [facility] Last Admin: 04/18/24 08:55 Dose: 25 mg Magnesium Hydroxide (Milk Of Magnesia 30 Ml Oral.Susp) 30 ml PO DAILY PRN PRN Reason: Constipation Mirtazapine (Mirtazapine 15 Mg Tablet) 15 mg PO BEDTIME [facility] Last Admin: 04/17/24 21:14 Dose: 15 mg Nicotine (Nicotine 21 Mg Patch.Td24) 21 mg TRANSDERMA DAILY PRN PRN Reason: Nicotine Cravings Last Admin: 04/18/24 10:03 Dose: 21 mg Nicotine Polacrilex (Nicotine Polacrilex Lozenge 4 Mg Lozenge) 4 mg BUCCAL Q2H PRN PRN Reason: Nicotine Cravings Last Admin: 04/17/24 16:21 Dose: 4 mg Pt Own (Atomoxetine (80 Mg Capsule)) 80 mg PO DAILY [facility] Last Admin: 04/18/24 08:56 Dose: 80 mg Nystatin (Nystatin Oral Susp 500,000 Unit/5 Ml Oral.Susp) 400,000 unit PO QID [facility]; Protocol Stop: 04/21/24 23:50 Last Admin: 04/18/24 08:54 Dose: 400,000 unit Prazosin HCl (Prazosin Hcl 5 Mg Capsule) 5 mg PO BEDTIME [facility]; Protocol Last Admin: 04/17/24 21:15 Dose: Not Given Thiamine HCl (Thiamine Hcl 100 Mg Tablet) 100 mg PO DAILY [facility] Last Admin: 04/18/24 08:56 Dose: 100 mg Trazodone HCl (Trazodone Hcl 50 Mg Tablet) 50 mg PO BEDTIME MRX1 PRN PRN Reason: Insomnia Last Admin: 04/17/24 21:13 Dose: 50 mg Allergies Allergies Allergy/AdvReac Type Severity Reaction Status Date / Time codeine [CODEINE] Allergy Unknown ABD PAIN Verified 04/14/24 16:02 adhesive tape Allergy Blister Verified 04/14/24 16:02 Assessment & Plan Assessment & Plan (1) Bipolar 2 disorder: Status: Acute Code(s): F31.81 - Bipolar II disorder (2) Suicidal thoughts: Status: Acute Code(s): R45.851 - Suicidal ideations Plan In conclusion Isha was seen, evaluated and meets criteria for IP LOC for safety and stabilization. Current medications were continued. I did not raise her dose of Lamictal quite yet but that can be considered. She is being treated for UTI. Outpatient referral to be re-established. She will meet with her treatment team on 04/17/202404/17:Pt reports feeling okay today; pt stated, I'm not feeling suicidal anymore. I was here recently and went to the [facility] but there was too much fighting there so I left and relapsed. I want to go to a TSS; I'm too old for this shit . Pt reports she did not sleep well last night and only slept 4 hours. pt denies SI/HI/VH/AH. 04/18: Pt reports feeling good today; pt stated, I'm just hoping to get into a program. I spoke with the recovery agent yesterday which was good . Pt reports improved sleep last night. pt denies SI/HI/VH/AH. Pt requesting to be restarted on baclofen which she reports was beneficial in the past. Start: Baclofen 10mg PO BID Patient educated on: diagnosis, medication risk/benefits, substance abuse and therapeutic strategies Informed Consent: understands Reason for continued inpatient stay Substantial Risk for: med/psych decompensation Time Spent With Patient Time: Total time managing care of this patient today _20___ minutes.
[2024-04-18] MEDS: Nicotine Polacrilex Lozenge 4 MG LOZENGE BUCCAL (13:14)
[2024-04-18 20:00] VITALS: BP 107/63; PULSE 92; RESP 16; TEMP 36.4; O2SAT 97
[2024-04-18] MEDS: Mirtazapine 15 MG TABLET PO (20:15)
[2024-04-18] MEDS: Prazosin HCL 5 MG CAPSULE PO (20:15)
[2024-04-18] MEDS: traZODone HCL 50 MG TABLET PO (20:15)
[2024-04-18] MEDS: Baclofen 10 MG TABLET PO (20:15)
[2024-04-19 07:40] VITALS: BP 81/55; PULSE 79; RESP 18; TEMP 36.4; O2SAT 98
[2024-04-19] MEDS: Amoxicillin 500 MG CAPSULE PO ×3 (09:39→20:35)
[2024-04-19] MEDS: ARIPiprazole 5 MG TABLET PO (09:39)
[2024-04-19] MEDS: clonazePAM 0.5 MG TABLET PO ×2 (09:39→20:36)
[2024-04-19] MEDS: lamoTRIgine 25 MG TABLET PO (09:39)
[2024-04-19] MEDS: Thiamine HCL 100 MG TABLET PO (09:40)
[2024-04-19] MEDS: Baclofen 10 MG TABLET PO ×2 (09:40→20:36)
[2024-04-19] MEDS: Folic Acid 1 MG TABLET PO (09:40)
[2024-04-19] MEDS: Nystatin Oral Susp 500,000 UNIT/5 ML ORAL.SUSP 400000 UNIT PO ×4 (09:40→20:39)
[2024-04-19] MEDS: Nicotine Polacrilex Lozenge 4 MG LOZENGE BUCCAL (09:50)
[2024-04-19] MEDS: hydrOXYzine HCL 25 MG TABLET PO ×2 (09:50→16:20)
[2024-04-19] MEDS: Nicotine 21 MG PATCH.TD24 TRANSDERMA (09:50)
--- NOTE | 2024-04-19 10:29 | HO.PSYCHPN ---
Subjective Subjective Date of Service: 04/19/24 Reason For Visit: SI Subjective Notes: Conditional Voluntary Interim History: Reviewed with Dr. Calvin. Pt reports feeling good today; pt stated, I'm feeling a bit depressed today because I had no one visit me. I told my family when visiting hours are but they don't come . Pt reports increase anxiety today. pt denies SI/HI/VH/AH. Increase Abilify to 10mg PO daily Medication Compliance: Yes Side effects from medications: No Attending Groups: Yes Review of Systems Constitutional: Reports as per HPI Eyes: Reports as per HPI Reports as per HPI Cardiovascular: Reports as per HPI Respiratory: Reports as per HPI Gastrointestinal: Reports as per HPI Musculoskeletal: Reports as per HPI Skin/Breast: Reports as per HPI Reports as per HPI Psychiatric: Reports as per HPI Endocrine: Reports as per HPI Hematologic/Lymphatic: Reports as per HPI Allergic/Immunologic: Reports as per HPI Mental Status Exam Mental Status Exam Narrative: Pt is alert and oriented; behavior is cooperative and calm; dressed in casual attire; mood is described as good ; eye contact appropriate; Speech is normal rate, volume and not pressured; thought process is organized and goal directed; Thought content is on tx; denies SI/HI/VH/AH. Diagnostics Vital Signs (24Hr): Vital Signs - 24 hr 04/18/24 20:00 04/19/24 07:40 Temperature 97.5 F 97.5 F Pulse Rate 92 79 Respiratory Rate 16 18 Blood Pressure 107/63 81/55 L Pulse Oximetry 97 98 Oxygen Delivery Method Room Air Room Air BMI result Body Mass Index 28.7 Labs 04/14/24 16:18 04/16/24 07:37 Imaging Radiology Impressions: ITS Impressions Chest X-Ray 04/14/24 16:40 IMPRESSION: No acute disease. Medications Medications Current Medications Acetaminophen (Acetaminophen 325 Mg Tablet) 650 mg PO Q6H PRN PRN Reason: Headache/Pain Mild Scale (1-3) Last Admin: 04/16/24 05:27 Dose: 650 mg Al Hydroxide/Mg Hydroxide (Magnesium Hydrox/Alum Hydrox 30 Ml Oral.Susp) 30 ml PO Q6H PRN PRN Reason: Heartburn/Nausea Amoxicillin (Amoxicillin 500 Mg Capsule) 500 mg PO TID [facility] Stop: 04/22/24 09:01 Last Admin: 04/19/24 09:39 Dose: 500 mg Aripiprazole (Aripiprazole 5 Mg Tablet) 5 mg PO DAILY [facility] Last Admin: 04/19/24 09:39 Dose: 5 mg Baclofen (Baclofen 10 Mg Tablet) 10 mg PO BID [facility] Last Admin: 04/19/24 09:40 Dose: 10 mg Clonazepam (Clonazepam 0.5 Mg Tablet) 0.5 mg PO BID [facility] Last Admin: 04/19/24 09:39 Dose: 0.5 mg Folic Acid (Folic Acid 1 Mg Tablet) 1 mg PO DAILY [facility] Last Admin: 04/19/24 09:40 Dose: 1 mg Hydroxyzine HCl (Hydroxyzine Hcl 25 Mg Tablet) 25 mg PO Q6H PRN PRN Reason: Anxiety Last Admin: 04/19/24 09:50 Dose: 25 mg Lamotrigine (Lamotrigine 25 Mg Tablet) 25 mg PO DAILY [facility] Last Admin: 04/19/24 09:39 Dose: 25 mg Magnesium Hydroxide (Milk Of Magnesia 30 Ml Oral.Susp) 30 ml PO DAILY PRN PRN Reason: Constipation Mirtazapine (Mirtazapine 15 Mg Tablet) 15 mg PO BEDTIME [facility] Last Admin: 04/18/24 20:15 Dose: 15 mg Nicotine (Nicotine 21 Mg Patch.Td24) 21 mg TRANSDERMA DAILY PRN PRN Reason: Nicotine Cravings Last Admin: 04/19/24 09:50 Dose: 21 mg Nicotine Polacrilex (Nicotine Polacrilex Lozenge 4 Mg Lozenge) 4 mg BUCCAL Q2H PRN PRN Reason: Nicotine Cravings Last Admin: 04/19/24 09:50 Dose: 4 mg Pt Own (Atomoxetine (80 Mg Capsule)) 80 mg PO DAILY [facility] Last Admin: 04/19/24 09:40 Dose: 80 mg Nystatin (Nystatin Oral Susp 500,000 Unit/5 Ml Oral.Susp) 400,000 unit PO QID [facility]; Protocol Stop: 04/21/24 23:50 Last Admin: 04/19/24 09:40 Dose: 400,000 unit Prazosin HCl (Prazosin Hcl 5 Mg Capsule) 5 mg PO BEDTIME [facility]; Protocol Last Admin: 04/18/24 20:15 Dose: 5 mg Thiamine HCl (Thiamine Hcl 100 Mg Tablet) 100 mg PO DAILY [facility] Last Admin: 04/19/24 09:40 Dose: 100 mg Trazodone HCl (Trazodone Hcl 50 Mg Tablet) 50 mg PO BEDTIME MRX1 PRN PRN Reason: Insomnia Last Admin: 04/18/24 20:15 Dose: 50 mg Allergies Allergies Allergy/AdvReac Type Severity Reaction Status Date / Time codeine [CODEINE] Allergy Unknown ABD PAIN Verified 04/14/24 16:02 adhesive tape Allergy Blister Verified 04/14/24 16:02 Assessment & Plan Assessment & Plan (1) Bipolar 2 disorder: Status: Acute Code(s): F31.81 - Bipolar II disorder (2) Suicidal thoughts: Status: Acute Code(s): R45.851 - Suicidal ideations Plan In conclusion Isha was seen, evaluated and meets criteria for IP LOC for safety and stabilization. Current medications were continued. I did not raise her dose of Lamictal quite yet but that can be considered. She is being treated for UTI. Outpatient referral to be re-established. She will meet with her treatment team on 04/17/202404/17:Pt reports feeling okay today; pt stated, I'm not feeling suicidal anymore. I was here recently and went to the [facility] but there was too much fighting there so I left and relapsed. I want to go to a TSS; I'm too old for this shit . Pt reports she did not sleep well last night and only slept 4 hours. pt denies SI/HI/VH/AH. 04/18: Pt reports feeling good today; pt stated, I'm just hoping to get into a program. I spoke with the continuous improvement coach yesterday which was good . Pt reports improved sleep last night. pt denies SI/HI/VH/AH. Pt requesting to be restarted on baclofen which she reports was beneficial in the past. Start: Baclofen 10mg PO BID 04/19: Pt reports feeling good today; pt stated, I'm feeling a bit depressed today because I had no one visit me. I told my family when visiting hours are but they don't come . Pt reports increase anxiety today. pt denies SI/HI/VH/AH. Increase Abilify to 10mg PO daily Patient educated on: diagnosis, medication risk/benefits and therapeutic strategies Informed Consent: understands Reason for continued inpatient stay Substantial Risk for: med/psych decompensation Time Spent With Patient Time: Total time managing care of this patient today _20___ minutes.
[2024-04-19 20:30] VITALS: BP 98/66; PULSE 83; RESP 16; TEMP 36.5; O2SAT 97
[2024-04-19] MEDS: Prazosin HCL 5 MG CAPSULE PO (20:36)
[2024-04-19] MEDS: traZODone HCL 50 MG TABLET PO (20:36)
[2024-04-19] MEDS: Mirtazapine 15 MG TABLET PO (20:37)
[2024-04-20 07:00] VITALS: BMI 29.8
[2024-04-20 08:00] VITALS: BP 96/58; PULSE 69; RESP 16; TEMP 36.3; O2SAT 97
[2024-04-20] MEDS: Folic Acid 1 MG TABLET PO (08:27)
[2024-04-20] MEDS: Baclofen 10 MG TABLET PO ×2 (08:27→20:58)
[2024-04-20] MEDS: ARIPiprazole 10 MG TABLET PO (08:27)
[2024-04-20] MEDS: lamoTRIgine 25 MG TABLET PO (08:27)
[2024-04-20] MEDS: clonazePAM 0.5 MG TABLET PO ×2 (08:27→20:58)
[2024-04-20] MEDS: Thiamine HCL 100 MG TABLET PO (08:27)
[2024-04-20] MEDS: Amoxicillin 500 MG CAPSULE PO ×3 (08:27→20:57)
[2024-04-20] MEDS: Nystatin Oral Susp 500,000 UNIT/5 ML ORAL.SUSP 400000 UNIT PO ×4 (08:28→21:04)
--- NOTE | 2024-04-20 09:02 | HO.PSYCHPN ---
Subjective Subjective Date of Service: 04/20/24 Reason For Visit: SI Subjective Notes: Conditional Voluntary Interim History: Reviewed with Dr. Calvin. Pt reports feeling good today; pt requesting to have an increase in Remeron. Remeron increased to 30mg PO bedtime. pt reports sleeping well. Pt reports she is trying to think about where I'm going to go from here. I'm open to going to a alf . Pt denies SI/HI/VH/AH. Medication Compliance: Yes Side effects from medications: No Attending Groups: Yes Review of Systems Constitutional: Reports as per HPI Eyes: Reports as per HPI Reports as per HPI Cardiovascular: Reports as per HPI Respiratory: Reports as per HPI Gastrointestinal: Reports as per HPI Genitourinary: Reports as per HPI Musculoskeletal: Reports as per HPI Skin/Breast: Reports as per HPI Reports as per HPI Psychiatric: Reports as per HPI Endocrine: Reports as per HPI Hematologic/Lymphatic: Reports as per HPI Allergic/Immunologic: Reports as per HPI Mental Status Exam Mental Status Exam Narrative: Pt is alert and oriented; behavior is cooperative and calm; dressed in casual attire; mood is described as good ; eye contact appropriate; Speech is normal rate, volume and not pressured; thought process is organized and goal directed; Thought content is on tx; denies SI/HI/VH/AH. Diagnostics Vital Signs (24Hr): Vital Signs - 24 hr 04/19/24 20:30 04/20/24 08:00 Temperature 97.7 F 97.3 F Pulse Rate 83 69 Respiratory Rate 16 16 Blood Pressure 98/66 96/58 L Pulse Oximetry 97 97 Oxygen Delivery Method Room Air Room Air BMI result Body Mass Index 28.7 Labs 04/14/24 16:18 04/16/24 07:37 Imaging Radiology Impressions: ITS Impressions Chest X-Ray 04/14/24 16:40 IMPRESSION: No acute disease. Medications Medications Current Medications Acetaminophen (Acetaminophen 325 Mg Tablet) 650 mg PO Q6H PRN PRN Reason: Headache/Pain Mild Scale (1-3) Last Admin: 04/16/24 05:27 Dose: 650 mg Al Hydroxide/Mg Hydroxide (Magnesium Hydrox/Alum Hydrox 30 Ml Oral.Susp) 30 ml PO Q6H PRN PRN Reason: Heartburn/Nausea Amoxicillin (Amoxicillin 500 Mg Capsule) 500 mg PO TID [facility] Stop: 04/22/24 09:01 Last Admin: 04/20/24 08:27 Dose: 500 mg Aripiprazole (Aripiprazole 10 Mg Tablet) 10 mg PO DAILY [facility] Last Admin: 04/20/24 08:27 Dose: 10 mg Baclofen (Baclofen 10 Mg Tablet) 10 mg PO BID [facility] Last Admin: 04/20/24 08:27 Dose: 10 mg Clonazepam (Clonazepam 0.5 Mg Tablet) 0.5 mg PO BID [facility] Last Admin: 04/20/24 08:27 Dose: 0.5 mg Folic Acid (Folic Acid 1 Mg Tablet) 1 mg PO DAILY [facility] Last Admin: 04/20/24 08:27 Dose: 1 mg Hydroxyzine HCl (Hydroxyzine Hcl 25 Mg Tablet) 25 mg PO Q6H PRN PRN Reason: Anxiety Last Admin: 04/19/24 16:20 Dose: 25 mg Lamotrigine (Lamotrigine 25 Mg Tablet) 25 mg PO DAILY [facility] Last Admin: 04/20/24 08:27 Dose: 25 mg Magnesium Hydroxide (Milk Of Magnesia 30 Ml Oral.Susp) 30 ml PO DAILY PRN PRN Reason: Constipation Mirtazapine (Mirtazapine 15 Mg Tablet) 15 mg PO BEDTIME [facility] Last Admin: 04/19/24 20:37 Dose: 15 mg Nicotine (Nicotine 21 Mg Patch.Td24) 21 mg TRANSDERMA DAILY PRN PRN Reason: Nicotine Cravings Last Admin: 04/19/24 09:50 Dose: 21 mg Nicotine Polacrilex (Nicotine Polacrilex Lozenge 4 Mg Lozenge) 4 mg BUCCAL Q2H PRN PRN Reason: Nicotine Cravings Last Admin: 04/19/24 09:50 Dose: 4 mg Pt Own (Atomoxetine (80 Mg Capsule)) 80 mg PO DAILY [facility] Last Admin: 04/20/24 08:36 Dose: 80 mg Nystatin (Nystatin Oral Susp 500,000 Unit/5 Ml Oral.Susp) 400,000 unit PO QID [facility]; Protocol Stop: 04/21/24 23:50 Last Admin: 04/20/24 08:28 Dose: 400,000 unit Prazosin HCl (Prazosin Hcl 5 Mg Capsule) 5 mg PO BEDTIME [facility]; Protocol Last Admin: 04/19/24 20:36 Dose: 5 mg Thiamine HCl (Thiamine Hcl 100 Mg Tablet) 100 mg PO DAILY [facility] Last Admin: 04/20/24 08:27 Dose: 100 mg Trazodone HCl (Trazodone Hcl 50 Mg Tablet) 50 mg PO BEDTIME MRX1 PRN PRN Reason: Insomnia Last Admin: 04/19/24 20:36 Dose: 50 mg Allergies Allergies Allergy/AdvReac Type Severity Reaction Status Date / Time codeine [CODEINE] Allergy Unknown ABD PAIN Verified 04/14/24 16:02 adhesive tape Allergy Blister Verified 04/14/24 16:02 Assessment & Plan Assessment & Plan (1) Bipolar 2 disorder: Status: Acute Code(s): F31.81 - Bipolar II disorder (2) Suicidal thoughts: Status: Acute Code(s): R45.851 - Suicidal ideations Plan In conclusion Isha was seen, evaluated and meets criteria for IP LOC for safety and stabilization. Current medications were continued. I did not raise her dose of Lamictal quite yet but that can be considered. She is being treated for UTI. Outpatient referral to be re-established. She will meet with her treatment team on 04/17/202404/17:Pt reports feeling okay today; pt stated, I'm not feeling suicidal anymore. I was here recently and went to the [facility] but there was too much fighting there so I left and relapsed. I want to go to a TSS; I'm too old for this shit . Pt reports she did not sleep well last night and only slept 4 hours. pt denies SI/HI/VH/AH. 04/18: Pt reports feeling good today; pt stated, I'm just hoping to get into a program. I spoke with the recovery room nurse yesterday which was good . Pt reports improved sleep last night. pt denies SI/HI/VH/AH. Pt requesting to be restarted on baclofen which she reports was beneficial in the past. Start: Baclofen 10mg PO BID 04/19: Pt reports feeling good today; pt stated, I'm feeling a bit depressed today because I had no one visit me. I told my family when visiting hours are but they don't come . Pt reports increase anxiety today. pt denies SI/HI/VH/AH. Increase Abilify to 10mg PO daily 04/20: Pt reports feeling good today; pt requesting to have an increase in Remeron. Remeron increased to 30mg PO bedtime. pt reports sleeping well. Pt reports she is trying to think about where I'm going to go from here. I'm open to going to a alf . Pt denies SI/HI/VH/AH. Patient educated on: diagnosis, medication risk/benefits and therapeutic strategies Informed Consent: understands Reason for continued inpatient stay Substantial Risk for: med/psych decompensation Time Spent With Patient Time: Total time managing care of this patient today _20___ minutes.
[2024-04-20] MEDS: hydrOXYzine HCL 25 MG TABLET PO (13:13)
[2024-04-20] MEDS: Nicotine Polacrilex Lozenge 4 MG LOZENGE BUCCAL (15:40)
[2024-04-20] MEDS: traZODone HCL 50 MG TABLET PO (20:57)
[2024-04-20] MEDS: Mirtazapine 30 MG TABLET PO (20:58)
[2024-04-20 21:00] VITALS: BP 102/63; PULSE 76; RESP 16; TEMP 36.3; O2SAT 97
[2024-04-20] MEDS: Prazosin HCL 5 MG CAPSULE PO (21:04)
[2024-04-21 08:00] VITALS: BP 105/55; PULSE 73; RESP 16; TEMP 36.8; O2SAT 96
[2024-04-21] MEDS: Nystatin Oral Susp 500,000 UNIT/5 ML ORAL.SUSP 400000 UNIT PO ×4 (08:31→20:23)
[2024-04-21] MEDS: Thiamine HCL 100 MG TABLET PO (08:32)
[2024-04-21] MEDS: Baclofen 10 MG TABLET PO ×2 (08:32→20:24)
[2024-04-21] MEDS: hydrOXYzine HCL 25 MG TABLET PO ×2 (08:32→15:31)
[2024-04-21] MEDS: clonazePAM 0.5 MG TABLET PO ×2 (08:32→20:24)
[2024-04-21] MEDS: ARIPiprazole 10 MG TABLET PO (08:32)
[2024-04-21] MEDS: Folic Acid 1 MG TABLET PO (08:32)
[2024-04-21] MEDS: Amoxicillin 500 MG CAPSULE PO ×3 (08:33→20:24)
[2024-04-21] MEDS: lamoTRIgine 25 MG TABLET PO (08:33)
[2024-04-21] MEDS: Nicotine 21 MG PATCH.TD24 TRANSDERMA (08:38)
[2024-04-21] MEDS: Nicotine Polacrilex Lozenge 4 MG LOZENGE BUCCAL (08:38)
--- NOTE | 2024-04-21 09:28 | P.PNPSI_ITS ---
Subjective Subjective Date of Service: 04/21/24 Reason For Visit: SI Subjective Notes: Conditional Voluntary Interim History: Reviewed with Dr. Calvin. Social with peers. attending groups. Pt reports feeling okay today; pt stated, I'm hoping to get into a program. If not then I will either go to a chcf or my parents house. I don't want to go back to the [facility] . denies SI/HI/VH/AH. Medication Compliance: Yes Side effects from medications: No Attending Groups: Yes Review of Systems Constitutional: Reports as per HPI Eyes: Reports as per HPI Reports as per HPI Cardiovascular: Reports as per HPI Respiratory: Reports as per HPI Gastrointestinal: Reports as per HPI Musculoskeletal: Reports as per HPI Skin/Breast: Reports as per HPI Reports as per HPI Psychiatric: Reports as per HPI Endocrine: Reports as per HPI Hematologic/Lymphatic: Reports as per HPI Allergic/Immunologic: Reports as per HPI Mental Status Exam Mental Status Exam Narrative: Pt is alert and oriented; behavior is cooperative and calm; dressed in casual attire; mood is described as good ; eye contact appropriate; Speech is normal rate, volume and not pressured; thought process is organized and goal directed; Thought content is on tx; denies SI/HI/VH/AH. Diagnostics Vital Signs (24Hr): Vital Signs - 24 hr 04/20/24 21:00 04/21/24 08:00 Temperature 97.4 F 98.3 F Pulse Rate 76 73 Respiratory Rate 16 16 Blood Pressure 102/63 105/55 L Pulse Oximetry 97 96 Oxygen Delivery Method Room Air Room Air BMI result Body Mass Index 29.8 Labs 04/14/24 16:18 04/16/24 07:37 Imaging Radiology Impressions: ITS Impressions Chest X-Ray 04/14/24 16:40 IMPRESSION: No acute disease. Medications Medications Current Medications Acetaminophen (Acetaminophen 325 Mg Tablet) 650 mg PO Q6H PRN PRN Reason: Headache/Pain Mild Scale (1-3) Last Admin: 04/16/24 05:27 Dose: 650 mg Al Hydroxide/Mg Hydroxide (Magnesium Hydrox/Alum Hydrox 30 Ml Oral.Susp) 30 ml PO Q6H PRN PRN Reason: Heartburn/Nausea Amoxicillin (Amoxicillin 500 Mg Capsule) 500 mg PO TID [facility] Stop: 04/22/24 09:01 Last Admin: 04/21/24 08:33 Dose: 500 mg Aripiprazole (Aripiprazole 10 Mg Tablet) 10 mg PO DAILY [facility] Last Admin: 04/21/24 08:32 Dose: 10 mg Baclofen (Baclofen 10 Mg Tablet) 10 mg PO BID [facility] Last Admin: 04/21/24 08:32 Dose: 10 mg Clonazepam (Clonazepam 0.5 Mg Tablet) 0.5 mg PO BID [facility] Last Admin: 04/21/24 08:32 Dose: 0.5 mg Folic Acid (Folic Acid 1 Mg Tablet) 1 mg PO DAILY [facility] Last Admin: 04/21/24 08:32 Dose: 1 mg Hydroxyzine HCl (Hydroxyzine Hcl 25 Mg Tablet) 25 mg PO Q6H PRN PRN Reason: Anxiety Last Admin: 04/21/24 08:32 Dose: 25 mg Lamotrigine (Lamotrigine 25 Mg Tablet) 25 mg PO DAILY [facility] Last Admin: 04/21/24 08:33 Dose: 25 mg Magnesium Hydroxide (Milk Of Magnesia 30 Ml Oral.Susp) 30 ml PO DAILY PRN PRN Reason: Constipation Mirtazapine (Mirtazapine 30 Mg Tablet) 30 mg PO BEDTIME [facility] Last Admin: 04/20/24 20:58 Dose: 30 mg Nicotine (Nicotine 21 Mg Patch.Td24) 21 mg TRANSDERMA DAILY PRN PRN Reason: Nicotine Cravings Last Admin: 04/21/24 08:38 Dose: 21 mg Nicotine Polacrilex (Nicotine Polacrilex Lozenge 4 Mg Lozenge) 4 mg BUCCAL Q2H PRN PRN Reason: Nicotine Cravings Last Admin: 04/21/24 08:38 Dose: 4 mg Pt Own (Atomoxetine (80 Mg Capsule)) 80 mg PO DAILY [facility] Last Admin: 04/21/24 08:39 Dose: 80 mg Nystatin (Nystatin Oral Susp 500,000 Unit/5 Ml Oral.Susp) 400,000 unit PO QID [facility]; Protocol Stop: 04/21/24 23:50 Last Admin: 04/21/24 08:31 Dose: 400,000 unit Prazosin HCl (Prazosin Hcl 5 Mg Capsule) 5 mg PO BEDTIME [facility]; Protocol Last Admin: 04/20/24 21:04 Dose: 5 mg Thiamine HCl (Thiamine Hcl 100 Mg Tablet) 100 mg PO DAILY [facility] Last Admin: 04/21/24 08:32 Dose: 100 mg Trazodone HCl (Trazodone Hcl 50 Mg Tablet) 50 mg PO BEDTIME MRX1 PRN PRN Reason: Insomnia Last Admin: 04/20/24 20:57 Dose: 50 mg Allergies Allergies Allergy/AdvReac Type Severity Reaction Status Date / Time codeine [CODEINE] Allergy Unknown ABD PAIN Verified 04/14/24 16:02 adhesive tape Allergy Blister Verified 04/14/24 16:02 Assessment & Plan Assessment & Plan (1) Bipolar 2 disorder: Status: Acute Code(s): F31.81 - Bipolar II disorder (2) Suicidal thoughts: Status: Acute Code(s): R45.851 - Suicidal ideations Plan In conclusion Isha was seen, evaluated and meets criteria for IP LOC for safety and stabilization. Current medications were continued. I did not raise her dose of Lamictal quite yet but that can be considered. She is being treated for UTI. Outpatient referral to be re-established. She will meet with her treatment team on 04/17/202404/17:Pt reports feeling okay today; pt stated, I'm not feeling suicidal anymore. I was here recently and went to the [facility] but there was too much fighting there so I left and relapsed. I want to go to a TSS; I'm too old for this shit . Pt reports she did not sleep well last night and only slept 4 hours. pt denies SI/HI/VH/AH. 04/18: Pt reports feeling good today; pt stated, I'm just hoping to get into a program. I spoke with the recovery operator helper yesterday which was good . Pt reports improved sleep last night. pt denies SI/HI/VH/AH. Pt requesting to be restarted on baclofen which she reports was beneficial in the past. Start: Baclofen 10mg PO BID 04/19: Pt reports feeling good today; pt stated, I'm feeling a bit depressed today because I had no one visit me. I told my family when visiting hours are but they don't come . Pt reports increase anxiety today. pt denies SI/HI/VH/AH. Increase Abilify to 10mg PO daily 04/20: Pt reports feeling good today; pt requesting to have an increase in Remeron. Remeron increased to 30mg PO bedtime. pt reports sleeping well. Pt reports she is trying to think about where I'm going to go from here. I'm open to going to a chcf . Pt denies SI/HI/VH/AH. 04/21: Social with peers. attending groups. Pt reports feeling okay today; pt stated, I'm hoping to get into a program. If not then I will either go to a chcf or my parents house. I don't want to go back to the [facility] . denies SI/HI/VH Patient educated on: diagnosis and medication risk/benefits Informed Consent: understands Reason for continued inpatient stay Substantial Risk for: med/psych decompensation Time Spent With Patient Time: Total time managing care of this patient today _20___ minutes.
[2024-04-21 20:00] VITALS: BP 113/63; PULSE 80; RESP 16; TEMP 36.2; O2SAT 99
[2024-04-21 20:24] VITALS: BP 113/63
[2024-04-21] MEDS: Prazosin HCL 5 MG CAPSULE PO (20:24)
[2024-04-21] MEDS: Mirtazapine 30 MG TABLET PO (20:24)
[2024-04-21] MEDS: traZODone HCL 50 MG TABLET PO (20:24)
[2024-04-22 08:00] VITALS: BP 94/60; PULSE 79; TEMP 36.4; O2SAT 99
[2024-04-22] MEDS: clonazePAM 0.5 MG TABLET PO ×2 (08:46→20:18)
[2024-04-22] MEDS: Baclofen 10 MG TABLET PO ×2 (08:46→20:18)
[2024-04-22] MEDS: lamoTRIgine 25 MG TABLET PO (08:46)
[2024-04-22] MEDS: Amoxicillin 500 MG CAPSULE PO (08:46)
[2024-04-22] MEDS: Folic Acid 1 MG TABLET PO (08:46)
[2024-04-22] MEDS: ARIPiprazole 10 MG TABLET PO (08:46)
[2024-04-22] MEDS: Thiamine HCL 100 MG TABLET PO (08:47)
--- NOTE | 2024-04-22 08:54 | HO.PSYCHPN ---
Subjective Subjective Date of Service: 04/22/24 Reason For Visit: SI Subjective Notes: Conditional Voluntary Interim History: Pt slept through the night. She reports she feels better that when she came in but worried about where she will go next. She denies SI/HI. Future oriented. visible, taking med. no behavioral concerns. Medication Compliance: Yes Review of Systems Review of Systems UTI symptoms, possible vaginitis Yes all other systems are reviewed and are negative Constitutional: Reports as per HPI Eyes: Reports as per HPI Reports as per HPI Cardiovascular: Reports as per HPI Respiratory: Reports as per HPI Gastrointestinal: Reports as per HPI Musculoskeletal: Reports as per HPI Skin/Breast: Reports as per HPI Reports as per HPI Psychiatric: Reports as per HPI Endocrine: Reports as per HPI Hematologic/Lymphatic: Reports as per HPI Allergic/Immunologic: Reports as per HPI Mental Status Exam Mental Status Exam Narrative: Pt is alert and oriented x 3; behavior is cooperative and calm; dressed in casual attire; mood is described as better ; eye contact appropriate; Speech is normal rate, volume and not pressured; thought process is organized and goal directed; Thought content is on tx; denies SI/HI/VH/AH. Diagnostics Vital Signs (24Hr): Vital Signs - 24 hr 04/21/24 20:00 04/21/24 20:24 04/22/24 08:00 Temperature 97.2 F 97.5 F Pulse Rate 80 79 Respiratory Rate 16 Blood Pressure 113/63 113/63 94/60 Pulse Oximetry 99 99 Oxygen Delivery Method Room Air Room Air BMI result Body Mass Index 29.8 Labs 04/14/24 16:18 04/16/24 07:37 Imaging Radiology Impressions: ITS Impressions Chest X-Ray 04/14/24 16:40 IMPRESSION: No acute disease. Medications Medications Current Medications Acetaminophen (Acetaminophen 325 Mg Tablet) 650 mg PO Q6H PRN PRN Reason: Headache/Pain Mild Scale (1-3) Last Admin: 04/16/24 05:27 Dose: 650 mg Al Hydroxide/Mg Hydroxide (Magnesium Hydrox/Alum Hydrox 30 Ml Oral.Susp) 30 ml PO Q6H PRN PRN Reason: Heartburn/Nausea Amoxicillin (Amoxicillin 500 Mg Capsule) 500 mg PO TID [facility] Stop: 04/22/24 09:01 Last Admin: 04/22/24 08:46 Dose: 500 mg Aripiprazole (Aripiprazole 10 Mg Tablet) 10 mg PO DAILY [facility] Last Admin: 04/22/24 08:46 Dose: 10 mg Baclofen (Baclofen 10 Mg Tablet) 10 mg PO BID [facility] Last Admin: 04/22/24 08:46 Dose: 10 mg Clonazepam (Clonazepam 0.5 Mg Tablet) 0.5 mg PO BID [facility] Last Admin: 04/22/24 08:46 Dose: 0.5 mg Folic Acid (Folic Acid 1 Mg Tablet) 1 mg PO DAILY [facility] Last Admin: 04/22/24 08:46 Dose: 1 mg Hydroxyzine HCl (Hydroxyzine Hcl 25 Mg Tablet) 25 mg PO Q6H PRN PRN Reason: Anxiety Last Admin: 04/21/24 15:31 Dose: 25 mg Lamotrigine (Lamotrigine 25 Mg Tablet) 25 mg PO DAILY [facility] Last Admin: 04/22/24 08:46 Dose: 25 mg Magnesium Hydroxide (Milk Of Magnesia 30 Ml Oral.Susp) 30 ml PO DAILY PRN PRN Reason: Constipation Mirtazapine (Mirtazapine 30 Mg Tablet) 30 mg PO BEDTIME [facility] Last Admin: 04/21/24 20:24 Dose: 30 mg Nicotine (Nicotine 21 Mg Patch.Td24) 21 mg TRANSDERMA DAILY PRN PRN Reason: Nicotine Cravings Last Admin: 04/21/24 08:38 Dose: 21 mg Nicotine Polacrilex (Nicotine Polacrilex Lozenge 4 Mg Lozenge) 4 mg BUCCAL Q2H PRN PRN Reason: Nicotine Cravings Last Admin: 04/21/24 08:38 Dose: 4 mg Pt Own (Atomoxetine (80 Mg Capsule)) 80 mg PO DAILY [facility] Last Admin: 04/22/24 08:47 Dose: 80 mg Prazosin HCl (Prazosin Hcl 5 Mg Capsule) 5 mg PO BEDTIME [facility]; Protocol Last Admin: 04/21/24 20:24 Dose: 5 mg Thiamine HCl (Thiamine Hcl 100 Mg Tablet) 100 mg PO DAILY [facility] Last Admin: 04/22/24 08:47 Dose: 100 mg Trazodone HCl (Trazodone Hcl 50 Mg Tablet) 50 mg PO BEDTIME MRX1 PRN PRN Reason: Insomnia Last Admin: 04/21/24 20:24 Dose: 50 mg Allergies Allergies Allergy/AdvReac Type Severity Reaction Status Date / Time codeine [CODEINE] Allergy Unknown ABD PAIN Verified 04/14/24 16:02 adhesive tape Allergy Blister Verified 04/14/24 16:02 Assessment & Plan Assessment & Plan (1) Bipolar 2 disorder: Status: Acute Code(s): F31.81 - Bipolar II disorder (2) Suicidal thoughts: Status: Acute Code(s): R45.851 - Suicidal ideations Plan In conclusion Isha was seen, evaluated and meets criteria for IP LOC for safety and stabilization. Current medications were continued. I did not raise her dose of Lamictal quite yet but that can be considered. She is being treated for UTI. Outpatient referral to be re-established. She will meet with her treatment team on 04/17/202404/17:Pt reports feeling okay today; pt stated, I'm not feeling suicidal anymore. I was here recently and went to the [facility] but there was too much fighting there so I left and relapsed. I want to go to a TSS; I'm too old for this shit . Pt reports she did not sleep well last night and only slept 4 hours. pt denies SI/HI/VH/AH. 04/18: Pt reports feeling good today; pt stated, I'm just hoping to get into a program. I spoke with the math coach yesterday which was good . Pt reports improved sleep last night. pt denies SI/HI/VH/AH. Pt requesting to be restarted on baclofen which she reports was beneficial in the past. Start: Baclofen 10mg PO BID 04/19: Pt reports feeling good today; pt stated, I'm feeling a bit depressed today because I had no one visit me. I told my family when visiting hours are but they don't come . Pt reports increase anxiety today. pt denies SI/HI/VH/AH. Increase Abilify to 10mg PO daily 04/20: Pt reports feeling good today; pt requesting to have an increase in Remeron. Remeron increased to 30mg PO bedtime. pt reports sleeping well. Pt reports she is trying to think about where I'm going to go from here. I'm open to going to a group home . Pt denies SI/HI/VH/AH. 04/21: Social with peers. attending groups. Pt reports feeling okay today; pt stated, I'm hoping to get into a program. If not then I will either go to a group home or my parents house. I don't want to go back to the [facility] . denies SI/HI/VH 04/22 continue tx. Reason for continued inpatient stay Substantial Risk for: inability to function Time Spent With Patient Time: Total time managing care of this patient today ____ minutes.
[2024-04-22] MEDS: Nicotine Polacrilex Lozenge 4 MG LOZENGE BUCCAL ×3 (09:08→20:18)
[2024-04-22] MEDS: hydrOXYzine HCL 25 MG TABLET PO (15:35)
[2024-04-22 20:00] VITALS: BP 129/63; PULSE 79; RESP 18; TEMP 36.6; O2SAT 98
[2024-04-22] MEDS: Prazosin HCL 5 MG CAPSULE PO (20:18)
[2024-04-22] MEDS: traZODone HCL 50 MG TABLET PO (20:18)
[2024-04-22] MEDS: Mirtazapine 30 MG TABLET PO (20:18)
[2024-04-23] MEDS: hydrOXYzine HCL 25 MG TABLET PO ×3 (03:00→20:46)
[2024-04-23 08:00] VITALS: BP 102/59; PULSE 69; RESP 14; TEMP 36.3; O2SAT 97
[2024-04-23] MEDS: Thiamine HCL 100 MG TABLET PO (08:42)
[2024-04-23] MEDS: Nicotine Polacrilex Lozenge 4 MG LOZENGE BUCCAL ×3 (08:42→16:05)
[2024-04-23] MEDS: Folic Acid 1 MG TABLET PO (08:42)
[2024-04-23] MEDS: Baclofen 10 MG TABLET PO ×2 (08:42→20:42)
[2024-04-23] MEDS: lamoTRIgine 25 MG TABLET PO (08:42)
[2024-04-23] MEDS: clonazePAM 0.5 MG TABLET PO ×2 (08:42→20:42)
[2024-04-23] MEDS: ARIPiprazole 10 MG TABLET PO (08:42)
[2024-04-23 20:00] VITALS: BP 102/64; PULSE 82; RESP 16; TEMP 36.4; O2SAT 98
[2024-04-23] MEDS: Mirtazapine 30 MG TABLET PO (20:41)
[2024-04-23] MEDS: Prazosin HCL 5 MG CAPSULE PO (20:42)
[2024-04-23] MEDS: traZODone HCL 50 MG TABLET PO (20:46)
--- NOTE | 2024-04-23 21:25 | P.PNPSI_ITS ---
Subjective Subjective Date of Service: 04/23/24 Reason For Visit: SI Subjective Notes: Conditional Voluntary Interim History: Pt slept through the night. Pt tearful today as she learned that her son is in psychiatric care facility due to SI. Some feelings of guilt, not being able to be there for him now and in the past. She denies SI/HI. Future oriented. visible, taking med. no behavioral concerns. Review of Systems Review of Systems UTI symptoms, possible vaginitis Yes all other systems are reviewed and are negative Constitutional: Reports as per HPI Eyes: Reports as per HPI Reports as per HPI Cardiovascular: Reports as per HPI Respiratory: Reports as per HPI Gastrointestinal: Reports as per HPI Musculoskeletal: Reports as per HPI Skin/Breast: Reports as per HPI Reports as per HPI Psychiatric: Reports as per HPI Endocrine: Reports as per HPI Hematologic/Lymphatic: Reports as per HPI Allergic/Immunologic: Reports as per HPI Mental Status Exam Mental Status Exam Narrative: Pt is alert and oriented x 3; behavior is cooperative and calm; dressed in casual attire; mood is described as better ; eye contact appropriate; Speech is normal rate, volume and not pressured; thought process is organized and goal directed; Thought content is on tx; denies SI/HI/VH/AH. Diagnostics Vital Signs (24Hr): Vital Signs - 24 hr 04/23/24 08:00 Temperature 97.4 F Pulse Rate 69 Respiratory Rate 14 Blood Pressure 102/59 L Pulse Oximetry 97 Oxygen Delivery Method Room Air BMI result Body Mass Index 29.8 Labs 04/14/24 16:18 04/16/24 07:37 Imaging Radiology Impressions: ITS Impressions Chest X-Ray 04/14/24 16:40 IMPRESSION: No acute disease. Medications Medications Current Medications Acetaminophen (Acetaminophen 325 Mg Tablet) 650 mg PO Q6H PRN PRN Reason: Headache/Pain Mild Scale (1-3) Last Admin: 04/16/24 05:27 Dose: 650 mg Al Hydroxide/Mg Hydroxide (Magnesium Hydrox/Alum Hydrox 30 Ml Oral.Susp) 30 ml PO Q6H PRN PRN Reason: Heartburn/Nausea Aripiprazole (Aripiprazole 10 Mg Tablet) 10 mg PO DAILY [facility] Last Admin: 04/23/24 08:42 Dose: 10 mg Baclofen (Baclofen 10 Mg Tablet) 10 mg PO BID [facility] Last Admin: 04/23/24 20:42 Dose: 10 mg Clonazepam (Clonazepam 0.5 Mg Tablet) 0.5 mg PO BID [facility] Last Admin: 04/23/24 20:42 Dose: 0.5 mg Folic Acid (Folic Acid 1 Mg Tablet) 1 mg PO DAILY [facility] Last Admin: 04/23/24 08:42 Dose: 1 mg Hydroxyzine HCl (Hydroxyzine Hcl 25 Mg Tablet) 25 mg PO Q6H PRN PRN Reason: Anxiety Last Admin: 04/23/24 20:46 Dose: 25 mg Lamotrigine (Lamotrigine 25 Mg Tablet) 25 mg PO DAILY [facility] Last Admin: 04/23/24 08:42 Dose: 25 mg Magnesium Hydroxide (Milk Of Magnesia 30 Ml Oral.Susp) 30 ml PO DAILY PRN PRN Reason: Constipation Mirtazapine (Mirtazapine 30 Mg Tablet) 30 mg PO BEDTIME [facility] Last Admin: 04/23/24 20:41 Dose: 30 mg Nicotine (Nicotine 21 Mg Patch.Td24) 21 mg TRANSDERMA DAILY PRN PRN Reason: Nicotine Cravings Last Admin: 04/21/24 08:38 Dose: 21 mg Nicotine Polacrilex (Nicotine Polacrilex Lozenge 4 Mg Lozenge) 4 mg BUCCAL Q2H PRN PRN Reason: Nicotine Cravings Last Admin: 04/23/24 16:05 Dose: 4 mg Pt Own (Atomoxetine (80 Mg Capsule)) 80 mg PO DAILY [facility] Last Admin: 04/23/24 08:42 Dose: 80 mg Prazosin HCl (Prazosin Hcl 5 Mg Capsule) 5 mg PO BEDTIME [facility]; Protocol Last Admin: 04/23/24 20:42 Dose: 5 mg Thiamine HCl (Thiamine Hcl 100 Mg Tablet) 100 mg PO DAILY [facility] Last Admin: 04/23/24 08:42 Dose: 100 mg Trazodone HCl (Trazodone Hcl 50 Mg Tablet) 50 mg PO BEDTIME MRX1 PRN PRN Reason: Insomnia Last Admin: 04/23/24 20:46 Dose: 50 mg Allergies Allergies Allergy/AdvReac Type Severity Reaction Status Date / Time codeine [CODEINE] Allergy Unknown ABD PAIN Verified 04/14/24 16:02 adhesive tape Allergy Blister Verified 04/14/24 16:02 Assessment & Plan Assessment & Plan (1) Bipolar 2 disorder: Status: Acute Code(s): F31.81 - Bipolar II disorder (2) Suicidal thoughts: Status: Acute Code(s): R45.851 - Suicidal ideations Plan In conclusion Isha was seen, evaluated and meets criteria for IP LOC for safety and stabilization. Current medications were continued. I did not raise her dose of Lamictal quite yet but that can be considered. She is being treated for UTI. Outpatient referral to be re-established. She will meet with her treatment team on 04/17/202404/17:Pt reports feeling okay today; pt stated, I'm not feeling suicidal anymore. I was here recently and went to the [facility] but there was too much fighting there so I left and relapsed. I want to go to a TSS; I'm too old for this shit . Pt reports she did not sleep well last night and only slept 4 hours. pt denies SI/HI/VH/AH. 04/18: Pt reports feeling good today; pt stated, I'm just hoping to get into a program. I spoke with the etiquette coach yesterday which was good . Pt reports improved sleep last night. pt denies SI/HI/VH/AH. Pt requesting to be restarted on baclofen which she reports was beneficial in the past. Start: Baclofen 10mg PO BID 04/19: Pt reports feeling good today; pt stated, I'm feeling a bit depressed today because I had no one visit me. I told my family when visiting hours are but they don't come . Pt reports increase anxiety today. pt denies SI/HI/VH/AH. Increase Abilify to 10mg PO daily 04/20: Pt reports feeling good today; pt requesting to have an increase in Remeron. Remeron increased to 30mg PO bedtime. pt reports sleeping well. Pt reports she is trying to think about where I'm going to go from here. I'm open to going to a halfway . Pt denies SI/HI/VH/AH. 04/21: Social with peers. attending groups. Pt reports feeling okay today; pt stated, I'm hoping to get into a program. If not then I will either go to a halfway or my parents house. I don't want to go back to the [facility] . denies SI/HI/VH 04/22 continue tx 04/23 continue tx. Reason for continued inpatient stay Substantial Risk for: inability to function Time Spent With Patient Time: Total time managing care of this patient today ____ minutes.
[2024-04-24] MEDS: hydrOXYzine HCL 25 MG TABLET PO ×3 (02:52→17:11)
[2024-04-24] MEDS: Nicotine Polacrilex Lozenge 4 MG LOZENGE BUCCAL ×4 (02:52→21:04)
[2024-04-24 07:15] VITALS: BP 92/64; PULSE 69; RESP 14; TEMP 35.9; O2SAT 99
[2024-04-24] MEDS: Baclofen 10 MG TABLET PO ×2 (08:27→21:00)
[2024-04-24] MEDS: clonazePAM 0.5 MG TABLET PO ×2 (08:27→21:00)
[2024-04-24] MEDS: lamoTRIgine 25 MG TABLET PO (08:28)
[2024-04-24] MEDS: ARIPiprazole 10 MG TABLET PO (08:28)
[2024-04-24] MEDS: Folic Acid 1 MG TABLET PO (08:28)
[2024-04-24] MEDS: Thiamine HCL 100 MG TABLET PO (08:28)
--- NOTE | 2024-04-24 09:22 | HO.PSYCHPN ---
Subjective Subjective Date of Service: 04/24/24 Reason For Visit: SI Subjective Notes: Conditional Voluntary Interim History: Reviewed with Dr. Calvin. Patient reports feeling good today;pt stated, I plan on going to my mom's house after here and wait to get into a program. My advocate is working on getting me housing . Pt denies SI/HI/VH/AH. Pt reports she plans on following up with outpatient providers and [facility]. Medication Compliance: Yes Side effects from medications: No Attending Groups: Yes Review of Systems Constitutional: Reports as per HPI Eyes: Reports as per HPI Reports as per HPI Cardiovascular: Reports as per HPI Respiratory: Reports as per HPI Gastrointestinal: Reports as per HPI Musculoskeletal: Reports as per HPI Skin/Breast: Reports as per HPI Reports as per HPI Psychiatric: Reports as per HPI Endocrine: Reports as per HPI Hematologic/Lymphatic: Reports as per HPI Allergic/Immunologic: Reports as per HPI Mental Status Exam Mental Status Exam Narrative: Pt is alert and oriented; behavior is cooperative and calm; dressed in casual attire; mood is described as good ; eye contact appropriate; Speech is normal rate, volume and not pressured; thought process is organized and goal directed; Thought content is on tx; denies SI/HI/VH/AH. Diagnostics Vital Signs (24Hr): Vital Signs - 24 hr 04/23/24 20:00 04/24/24 07:15 04/24/24 07:15 Temperature 97.6 F 96.6 F L Pulse Rate 82 69 69 Respiratory Rate 16 14 14 Blood Pressure 102/64 92/64 92/64 Pulse Oximetry 98 99 99 Oxygen Delivery Method Room Air Room Air Room Air BMI result Body Mass Index 29.8 Labs 04/14/24 16:18 04/16/24 07:37 Imaging Radiology Impressions: ITS Impressions Chest X-Ray 04/14/24 16:40 IMPRESSION: No acute disease. Medications Medications Current Medications Acetaminophen (Acetaminophen 325 Mg Tablet) 650 mg PO Q6H PRN PRN Reason: Headache/Pain Mild Scale (1-3) Last Admin: 04/16/24 05:27 Dose: 650 mg Al Hydroxide/Mg Hydroxide (Magnesium Hydrox/Alum Hydrox 30 Ml Oral.Susp) 30 ml PO Q6H PRN PRN Reason: Heartburn/Nausea Aripiprazole (Aripiprazole 10 Mg Tablet) 10 mg PO DAILY [facility] Last Admin: 04/24/24 08:28 Dose: 10 mg Baclofen (Baclofen 10 Mg Tablet) 10 mg PO BID [facility] Last Admin: 04/24/24 08:27 Dose: 10 mg Clonazepam (Clonazepam 0.5 Mg Tablet) 0.5 mg PO BID [facility] Last Admin: 04/24/24 08:27 Dose: 0.5 mg Folic Acid (Folic Acid 1 Mg Tablet) 1 mg PO DAILY [facility] Last Admin: 04/24/24 08:28 Dose: 1 mg Hydroxyzine HCl (Hydroxyzine Hcl 25 Mg Tablet) 25 mg PO Q6H PRN PRN Reason: Anxiety Last Admin: 04/24/24 09:08 Dose: 25 mg Lamotrigine (Lamotrigine 25 Mg Tablet) 25 mg PO DAILY [facility] Last Admin: 04/24/24 08:28 Dose: 25 mg Magnesium Hydroxide (Milk Of Magnesia 30 Ml Oral.Susp) 30 ml PO DAILY PRN PRN Reason: Constipation Mirtazapine (Mirtazapine 30 Mg Tablet) 30 mg PO BEDTIME [facility] Last Admin: 04/23/24 20:41 Dose: 30 mg Nicotine (Nicotine 21 Mg Patch.Td24) 21 mg TRANSDERMA DAILY PRN PRN Reason: Nicotine Cravings Last Admin: 04/21/24 08:38 Dose: 21 mg Nicotine Polacrilex (Nicotine Polacrilex Lozenge 4 Mg Lozenge) 4 mg BUCCAL Q2H PRN PRN Reason: Nicotine Cravings Last Admin: 04/24/24 08:32 Dose: 4 mg Pt Own (Atomoxetine (80 Mg Capsule)) 80 mg PO DAILY [facility] Last Admin: 04/24/24 08:29 Dose: 80 mg Prazosin HCl (Prazosin Hcl 5 Mg Capsule) 5 mg PO BEDTIME [facility]; Protocol Last Admin: 04/23/24 20:42 Dose: 5 mg Thiamine HCl (Thiamine Hcl 100 Mg Tablet) 100 mg PO DAILY [facility] Last Admin: 04/24/24 08:28 Dose: 100 mg Trazodone HCl (Trazodone Hcl 50 Mg Tablet) 50 mg PO BEDTIME MRX1 PRN PRN Reason: Insomnia Last Admin: 04/23/24 20:46 Dose: 50 mg Allergies Allergies Allergy/AdvReac Type Severity Reaction Status Date / Time codeine [CODEINE] Allergy Unknown ABD PAIN Verified 04/14/24 16:02 adhesive tape Allergy Blister Verified 04/14/24 16:02 Assessment & Plan Assessment & Plan (1) Bipolar 2 disorder: Status: Acute Code(s): F31.81 - Bipolar II disorder (2) Suicidal thoughts: Status: Acute Code(s): R45.851 - Suicidal ideations Plan In conclusion Isha was seen, evaluated and meets criteria for IP LOC for safety and stabilization. Current medications were continued. I did not raise her dose of Lamictal quite yet but that can be considered. She is being treated for UTI. Outpatient referral to be re-established. She will meet with her treatment team on 04/17/202404/17:Pt reports feeling okay today; pt stated, I'm not feeling suicidal anymore. I was here recently and went to the [facility] but there was too much fighting there so I left and relapsed. I want to go to a TSS; I'm too old for this shit . Pt reports she did not sleep well last night and only slept 4 hours. pt denies SI/HI/VH/AH. 04/18: Pt reports feeling good today; pt stated, I'm just hoping to get into a program. I spoke with the recovery unit operator yesterday which was good . Pt reports improved sleep last night. pt denies SI/HI/VH/AH. Pt requesting to be restarted on baclofen which she reports was beneficial in the past. Start: Baclofen 10mg PO BID 04/19: Pt reports feeling good today; pt stated, I'm feeling a bit depressed today because I had no one visit me. I told my family when visiting hours are but they don't come . Pt reports increase anxiety today. pt denies SI/HI/VH/AH. Increase Abilify to 10mg PO daily 04/20: Pt reports feeling good today; pt requesting to have an increase in Remeron. Remeron increased to 30mg PO bedtime. pt reports sleeping well. Pt reports she is trying to think about where I'm going to go from here. I'm open to going to a detention . Pt denies SI/HI/VH/AH. 04/21: Social with peers. attending groups. Pt reports feeling okay today; pt stated, I'm hoping to get into a program. If not then I will either go to a detention or my parents house. I don't want to go back to the [facility] . denies SI/HI/VH 04/22 continue tx 04/23 continue tx. 04/24: Patient reports feeling good today;pt stated, I plan on going to my mom's house after here and wait to get into a program. My advocate is working on getting me housing . Pt denies SI/HI/VH/AH. Pt reports she plans on following up with outpatient providers and [facility]. Patient educated on: diagnosis, medication risk/benefits, substance abuse and therapeutic strategies Reason for continued inpatient stay Substantial Risk for: stable for discharge Time Spent With Patient Time: Total time managing care of this patient today _20___ minutes.
[2024-04-24 20:00] VITALS: BP 102/60; PULSE 83; RESP 14; TEMP 36.4; O2SAT 98
[2024-04-24] MEDS: Mirtazapine 30 MG TABLET PO (21:00)
[2024-04-24] MEDS: traZODone HCL 50 MG TABLET PO (21:00)
[2024-04-24] MEDS: Prazosin HCL 5 MG CAPSULE PO (21:01)
[2024-04-25] MEDS: Nicotine Polacrilex Lozenge 4 MG LOZENGE BUCCAL (07:56)
[2024-04-25] MEDS: hydrOXYzine HCL 25 MG TABLET PO (07:56)
[2024-04-25] MEDS: clonazePAM 0.5 MG TABLET PO (07:56)
[2024-04-25] MEDS: lamoTRIgine 25 MG TABLET PO (07:57)
[2024-04-25] MEDS: Baclofen 10 MG TABLET PO (07:57)
[2024-04-25] MEDS: ARIPiprazole 10 MG TABLET PO (07:57)
[2024-04-25] MEDS: Naloxone HCl Nasal TAKE HOME 4 MG SPRAY 8 MG NOSTRILALT (07:59)
[2024-04-25 08:00] VITALS: BP 98/59; PULSE 73; RESP 16; TEMP 36.2; O2SAT 98
--- NOTE | 2024-04-25 09:01 | PM.PSYDC ---
DS: Providers Provider Date of Service: 04/25/24 Date of admission: 04/15/24 12:56 Date of discharge: 04/25/24 Primary care physician: Tawana Younger NP Attending physician on admission: Shari Ferguson Consults: 04/14/24 16:04 Consult to Care Team Stat Comment: Reason for consultation: SI w/o plan 04/15/24 19:09 Addiction Medicine Routine Consulting Provider: Addiction Covering Reason for consultation: Cocaine abuse Attending physician on discharge: Benjamin Calvin Discharging clinician: Shaniqua Cutler DS: Diagnosis Discharge Diagnosis (1) Bipolar 2 disorder: Status: Acute (2) Suicidal thoughts: Status: Acute DS: Medications Discharge Medications Home Medications: Home Medications ?Medication ?Instructions ?Recorded ?Confirmed atomoxetine 80 mg capsule 80 mg PO QAM 04/14/24 04/14/24 clonazepam 0.5 mg tablet 0.5 mg PO BID 04/14/24 04/14/24 Previous Rx's ?Medication ?Instructions ?Recorded aripiprazole 10 mg tablet 10 mg PO DAILY 30 days #30 tabs 04/24/24 baclofen 10 mg tablet 10 mg PO BID 30 days #60 tabs 04/24/24 hydroxyzine HCl 25 mg tablet 25 mg PO BID PRN Anxiety 30 days 04/24/24 #60 tabs lamotrigine 25 mg tablet 25 mg PO DAILY 30 days #30 tabs 04/24/24 mirtazapine 30 mg tablet 30 mg PO BEDTIME 30 days #30 tabs 04/24/24 prazosin 5 mg capsule 5 mg PO BEDTIME 30 days #30 caps 04/24/24 Mental Status Exam Mental Status Exam Narrative: Pt is alert and oriented; behavior is cooperative and calm; dressed in casual attire; mood is described as good ; eye contact appropriate; Speech is normal rate, volume and not pressured; thought process is organized and goal directed; Thought content is on tx; denies SI/HI/VH/AH. Data Data Completed and Pending Completed studies during hospitalization [Text1]: 04/14/24 16:45 Urine clean catch - Clean Catch Midstream Urine Culture - Final Strep agalactiae (Grp B) Imaging Diagnostic Imaging Impressions Chest X-Ray 04/14/24 16:40 IMPRESSION: No acute disease. DS: Summary Hospital Course Hospital Course: Isha is a 54-year-old white, , homeless, mother of 4/3 surviving. This is 1 of several psychiatric hospitalizations. She was discharged about a week ago from , going to the [facility] for several days were she found it to be very triggering and left on of last week and had alcohol and 200 dollars worth of crack cocaine. Upon feeling suicidal she self presented to the emergency room for readmission. She feels that she left too soon from . She has been taking the medications that she was started on, Abilify 5 mg daily, Lamictal 25 mg daily and has also been on prazosin 5 mg q.h.s. for nightmares. She states that the prazosin is not that effective anymore. She has not connected to outpatient services currently but had been going to [facility]. She is diagnosed with bipolar disorder and ADHD. She has had both depressive and manic episodes. Currently she is also on Strattera 80 mg daily. She has had suicide attempts, 4 years ago jumping in front of a car, overdosing and recently was close to overdosing on a bottle of Demerol and that is when she was asked to no longer stay at her mother's house. As stated she is currently homeless. Isha was seen the morning after her admission. She is alert, oriented and pleasant. Soft-spoken speech. Minimal eye contact. Affect is appropriate, constricted and subdued. No signs of hypomania. No signs of psychosis. Admits to having had suicidal ideations but denies any currently. Cognitively she is intact. Judgment is intact. She is able to move all limbs. No abnormalities of gait. In conclusion Isha was seen, evaluated and meets criteria for IP LOC for safety and stabilization. Current medications were continued. I did not raise her dose of Lamictal quite yet but that can be considered. She is being treated for UTI. Outpatient referral to be re-established. She will meet with her treatment team on 04/17/2024 Pt reports feeling okay today; pt stated, I'm not feeling suicidal anymore. I was here recently and went to the [facility] but there was too much fighting there so I left and relapsed. I want to go to a [facility]; I'm too old for this shit . Pt reports she did not sleep well last night and only slept 4 hours. pt denies SI/HI/VH/AH. Pt reports feeling good today; pt stated, I'm just hoping to get into a program. I spoke with the men's basketball coach yesterday which was good . Pt reports improved sleep last night. pt denies SI/HI/VH/AH. Pt requesting to be restarted on baclofen which she reports was beneficial in the past. Start: Baclofen 10mg PO BID Pt reports feeling good today; pt stated, I'm feeling a bit depressed today because I had no one visit me. I told my family when visiting hours are but they don't come . Pt reports increase anxiety today. pt denies SI/HI/VH/AH. Increase Abilify to 10mg PO daily Pt reports feeling good today; pt requesting to have an increase in Remeron. Remeron increased to 30mg PO bedtime. pt reports sleeping well. Pt reports she is trying to think about where I'm going to go from here. I'm open to going to a correction . Pt denies SI/HI/VH/AH. Social with peers. attending groups. Pt reports feeling okay today; pt stated, I'm hoping to get into a program. If not then I will either go to a correction or my parents house. I don't want to go back to the [facility] . denies SI/HI/VH Patient reports feeling good today;pt stated, I plan on going to my mom's house after here and wait to get into a program. My advocate is working on getting me housing . Pt denies SI/HI/VH/AH. Pt reports she plans on following up with outpatient providers and [facility]. Time spent discussing smoking cessation with patient: 3 to 10 minutes Status at Discharge Cognitive/behavioral status at discharge: Patient was interviewed prior to discharge and found to be fully oriented and without SI or HI. Patient has insight and demonstrates good judgment in terms of wanting to pursue treatment. Patient has a safety plan that includes presenting to the closest ER or calling 911 if feeling unsafe. Functional status at discharge: independent ambulation Overall status at discharge: patient is back to baseline Time Spent with Patient Time attestation: Total time managing care of this patient today _20___ minutes. Time spent: Less than 30 minutes Discharge Plan Discharge Anticipated Discharge Date/Time: 04/25/24 11:30 Patient Disposition: Home, Self-Care Discharge Diagnosis: Bipolar d/o, cocaine use d/o Referrals: [facility]: Partial Hospitalization Program ([facility] [Other] - 1 Week (Referral to Partial Hospitalization Program PHP will follow-up with patient after discharge to provide initial intake appointment.) [facility] [Other] - 1 Week (Referral to [facility] Patient should continue to follow-up on referral after discharge ) [facility] [Other] - 1 Week (Referral for substance abuse treatment Patient should continue to follow-up on referral after discharge ) [facility] ([facility]): Arya Locke [Other] - 05/18/24 12:00 pm (hospital discharge appointment with psychiatric medication provider Appointment in person at [facility] ) RUFUS JARVIS: [facility] [Other] - 05/01/24 11:00 am (Hospital Discharge Appointment Appointment in person at [facility] in [place].) Tawana Younger NP [Primary Care Provider] - 05/03/24 7:50 am (Your follow up appt with Tawana Younger is scheduled for Wednesday05-03-24 @ 7:50am. Please arrive 15 minutes prior to your appt.) Discharge Medications: New baclofen 10 mg Tablet 10 mg PO BID 30 Days Qty: 60 0RF aripiprazole 10 mg Tablet 10 mg PO DAILY 30 Days Qty: 30 0RF mirtazapine 30 mg Tablet 30 mg PO BEDTIME 30 Days Qty: 30 0RF Continued clonazepam 0.5 mg tablet 0.5 mg PO BID atomoxetine 80 mg capsule 80 mg PO QAM lamotrigine 25 mg tablet 25 mg PO DAILY 30 Days Qty: 30 0RF prazosin 5 mg capsule 5 mg PO BEDTIME 30 Days Qty: 30 0RF Changed hydroxyzine HCl 25 mg Tablet 25 mg PO BID PRN (Reason: Anxiety) 30 Days Qty: 60 0RF Discontinued thiamine HCl (vitamin B1) 100 mg tablet 100 mg PO DAILY nicotine 21 mg/24 hr patch 24 hour 1 patch topical DAILY mirtazapine 15 mg tablet 15 mg PO BEDTIME aripiprazole 5 mg tablet 5 mg PO DAILY folic acid 1 mg tablet 1 mg PO DAILY nicotine (polacrilex) 4 mg Lozenge 4 mg buccal Q2H PRN (Reason: Nicotine Cravings) Qty: 100 0RF Discharge Orders: Discharge Order (Routine); Ordered 04/25/24 Ordered By: Shaniqua Cutler Diet: Regular diet Activity on Discharge: As tolerated Stand Alone Forms: Patient Portal Discharge page, Community Support Print Language: South African Care Plan Goals: Maintain mood and safe behaviors Take medications as prescribed Continue to pursue sobriety Practice coping skills Continue with outpatient providers and reach out to them as needed Health Concerns: Mood stability and behaviors Sobriety Plan of Treatment: Follow up with your PCP, psychiatric provider and other outpatient providers regarding above concerns Take medications as prescribed Assessment: Patient was interviewed prior to discharge and found to be fully oriented and without SI or HI. Patient has insight and demonstrates good judgment in terms of wanting to pursue treatment. Patient has a safety plan that includes presenting to the closest ER or calling 911 if feeling unsafe. Discharge Date/Time: 04/25/24 12:04
== END 2024-04-25 12:04 | disposition home or self-care (01) | DRG 753 ==
LOC: HO.ED 20:17 → HO.PADLT16 04-15 13:23
PROVIDERS: Physician Assistant Medical; Psychiatry & Neurology Psychiatry; Admitting Provider Psychiatry & Neurology Psychiatry; Emergency Provider Emergency Medicine; PCP Nurse Practitioner Adult Health; Responsible Provider Registered Nurse; Visit Provider Psychiatry & Neurology Psychiatry
DX: F31.81 Bipolar II disorder (principal); R45.851 Suicidal ideations; F14.10 Cocaine abuse, uncomplicated; Z20.822 Contact with and (suspected) exposure to COVID-19; Z59.02 Unsheltered homelessness; Z79.899 Other long term (current) drug therapy
CPT/HCPCS: 0241U; 0352U; 36415; 71046; 80053; 80061; 80307; 81001; 81003; 83690; 83735; 84484; 85025; 85610; 87086; 87147; 87491; 87591; 93005; 99285; S9485

== ENCOUNTER → 2024-04-14 16:03 | Outpatient (BNV) | payer OTHER, SELFPAY | PROVIDERS: Emergency Provider Emergency Medicine; PCP Nurse Practitioner Adult Health; Visit Provider Internal Medicine | DX: R07.9 Chest pain, unspecified (principal) | CPT/HCPCS: 93010 ==

== ENCOUNTER → 2024-04-15 12:56 | Outpatient (BNV) | payer OTHER, SELFPAY | PROVIDERS: Admitting Provider Psychiatry & Neurology Psychiatry; Emergency Provider Emergency Medicine; PCP Nurse Practitioner Adult Health; Visit Provider Psychiatry & Neurology Psychiatry | DX: F31.81 Bipolar II disorder (principal); R45.851 Suicidal ideations | CPT/HCPCS: 99231; 99232 ==

== ENCOUNTER 2024-06-16 23:56 | Emergency (ER) | payer OTHER, SELFPAY ==
--- NOTE | ~2024-06-16 | CT_ITS ---
EXAMINATION: CT HEAD WITHOUT CONTRAST CT CERVICAL SPINE WITHOUT CONTRAST CLINICAL INFORMATION: Trauma. COMPARISON: None available. TECHNIQUE: Contiguous axial imaging was performed from the skull base to vertex without intravenous administration of contrast. Contiguous axial imaging was performed from the upper chest through the skull base without intravenous administration of contrast. Coronal and sagittal reformats were obtained at the acquisition workstation. This CT examination was performed using dose optimization techniques as appropriate, variously including the following: *Automated exposure control. *Adjustment of mA and/or kV according to patient size (this includes techniques or standardized protocols for targeted exams where dose is matched to indication/reason for exam; i.e. extremities or head). *Use of iterative reconstruction technique. DLP: 926 mGy-cm FINDINGS: Head: There is no evidence of acute intracranial hemorrhage or edematous territorial infarction. Cunningham-white matter differentiation is preserved. A few foci of hypoattenuation in the periventricular and deep white matter are consistent with mild microangiopathy. The ventricles are normal in morphology and size. No evidence for obstructive hydrocephalus. No abnormal mass effect or midline shift. No extra-axial fluid collections. No acute soft tissue or osseous abnormalities. Mild mucosal thickening of the paranasal sinuses. The mastoid air cells and middle ear cavities are clear. Cervical Spine: The atlantooccipital and atlantoaxial articulations remain well aligned. Moderate degenerative arthropathy of the atlantodental articulation. Straightening of the normal cervical lordosis. Otherwise, there is anatomic alignment of the vertebral bodies and posterior elements. No evidence of acute fracture or subluxation. The vertebral body heights and disc spaces are maintained. There is no prevertebral soft tissue swelling. The thyroid gland and remaining cervical soft tissues are within normal limits. Moderate centrilobular and paraseptal emphysema of the lung apices. CT/CT cervical spine wo IV con IMPRESSION: 1. No evidence of acute intracranial hemorrhage or edematous territorial infarction. Mild underlying microangiopathy. 2. No evidence of acute fracture or traumatic subluxation of the cervical spine. 3. Emphysema. Electronically signed by: Rashad Sullivan DO 06/17/2024 01:35 AM EDT
--- NOTE | ~2024-06-16 | XR_ITS ---
EXAMINATION: XR CHEST CLINICAL INFORMATION: Trauma. COMPARISON: April 14, 2024. TECHNIQUE: 2 views of the chest were obtained. FINDINGS: The cardiomediastinal silhouette is stable. There is stable mild diffuse interstitial prominence. There is no focal lung consolidation or pleural effusions. The bony structures and the soft tissues are unremarkable. XR/XR chest 2V IMPRESSION: No acute cardiopulmonary process. Electronically signed by: Kirit Ambriz MD 06/17/2024 02:26 AM EDT
[2024-06-17 00:05] VITALS: BP 109/72; BP 142/96; PULSE 75; PULSE 96; RESP 20; TEMP 36.7; O2SAT 100; O2SAT 98; BMI 26.6
--- NOTE | 2024-06-17 01:05 | ED_ITS ---
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 3.6 (2.0-8.3) x10*3/uL Absolute Nucleated RBC 0.000 (0.0-0.012) X10*3/uL Nucleated RBC % (auto) 0.0 (0.0-0.2) /100WBC Sodium 141 141 (135-145) mmol/L Potassium 2.8 L* D 4.1 D (3.3-5.1) mmol/L Chloride 106 111 H (96-108) mmol/L Carbon Dioxide 27 22 (22-29) mmol/L Anion Gap 11 L 12 (12-20) BUN 10 7 L (9-16) mg/dL Creatinine 0.77 0.73 (0.5-1.4) mg/dL Estim Creat Clear Calc 84.3 88.9 Estimated GFR > 60 > 60 Random Glucose 99 86 (60-115) mg/dL Calcium 9.7 9.3 (8.4-10.2) mg/dL Magnesium 1.9 1.9 (1.6-2.6) mg/dL Total Bilirubin 0.3 (0.0-1.0) mg/dL AST 15 (5-31) U/L ALT 14 (0-31) U/L Alkaline Phosphatase 85 (39-117) U/L Total Protein 7.3 (6.5-8.0) g/dL Albumin 4.1 (3.5-5.0) g/dL Beta HCG, Quant 5 mIU/mL Urine Opiates Screen Not Detected (Not Detect) Ur Buprenorphine Scrn Not Detected (Not Detect) ng/mL Ur Oxycodone Screen Not Detected (Not Detect) ng/mL Urine Methadone Screen Not Detected (Not Detect) ng/mL Urine Fentanyl Screen Not Detected (Not Detect) Ur Barbiturates Screen Not Detected (Not Detect) Ur Phencyclidine Scrn Not Detected (Not Detect) Ur Amphetamines Screen Not Detected (Not Detect) U Benzodiazepines Scrn Not Detected (Not Detect) Urine Cocaine Screen POSITIVE H (Not Detect) U Marijuana (THC) Screen Not Detected (Not Detect) Ethyl Alcohol < 10 mg/dL <Ludwin Broderick MD - Last Filed: 06/19/24 09:04> Radiology Impression Discussion of test interpretation with radiology: I have reviewed the radiologist's reading. <Edy Hunter MD - Last Filed: 06/18/24 17:31> Radiologist Impression: CT/CT cervical spine wo IV con IMPRESSION: 1. No evidence of acute intracranial hemorrhage or edematous territorial infarction. Mild underlying microangiopathy. 2. No evidence of acute fracture or traumatic subluxation of the cervical spine. 3. Emphysema. Electronically signed by: Rashad Sullivan DO 06/17/2024 01:35 AM EDT RP XR chest 2V IMPRESSION: No acute cardiopulmonary process. Electronically signed by: Kirit Ambriz MD 06/17/2024 02:26 AM EDT RP Dictated By: Kirit Ambriz MD <Edy Hunter MD - Last Filed: 06/18/24 17:31> Discharge Plan Discharge Clinical Impression: Acute neck pain, Acute chest wall pain, Acute hypokalemia <ALMA Licona - Last Filed: 06/17/24 01:46> Patient Disposition: Still a Patient <ALMA Licona - Last Filed: 06/17/24 01:46> Prescriptions: New potassium chloride 20 mEq tablet,ER particles/crystals 20 meq PO DAILY Qty: 14 0RF No Action baclofen 10 mg Tablet 10 mg PO BID 30 Days Qty: 60 0RF aripiprazole 10 mg Tablet 10 mg PO DAILY 30 Days Qty: 30 0RF mirtazapine 30 mg Tablet 30 mg PO BEDTIME 30 Days Qty: 30 0RF lamotrigine 25 mg tablet 25 mg PO DAILY 30 Days Qty: 30 0RF hydroxyzine HCl 25 mg Tablet 25 mg PO BID PRN (Reason: Anxiety) 30 Days Qty: 60 0RF prazosin 2 mg capsule 2 mg PO BEDTIME <ALMA Licona - Last Filed: 06/17/24 01:46> Referrals: Tawana Younger NP [Primary Care Provider] - 3 days <ALMA Licona - Last Filed: 06/17/24 01:46> Print Language: Nepalese <ALMA Licona - Last Filed: 06/17/24 01:46>
[2024-06-17 01:14] LABS: MANUAL DIFF FLAG NO
[2024-06-17 01:22] LABS: Basophils Absolute Auto 0.1 X10*3/uL (0.0-0.2); Eosinophils Percent Auto 0.3 % (0-4); Hematocrit 37.5 % (37.0-47.0); Hemoglobin 12.7 g/dl (12.0-16.0); Imm Gran Abs Auto 0.02 X10*3/uL (0.00-0.03); Imm Gran Pct Auto 0.3 % (0.0-0.4); Lymphocytes Percent Auto 31.9 % (20-40); Mean Corpuscular HGB Conc 33.9 g/dl (31.0-35.0); Mean Corpuscular Hemoglobin 28.1 pg (27.0-33.0); Mean Platelet Volume 10.7 fL (9.4-12.3); Monocytes Absolute Auto 0.4 X10*3/uL (0.1-1.2); Monocytes Percent Auto 7.2 % (2-11); Neutrophils Absolute Auto 3.6 x10*3/uL (2.0-8.3); Neutrophils Percent Auto 59.3 % (45-73); Platelet Count 201 X10*3/uL (160-400); Red Blood Count 4.52 X10*6/uL (4.20-5.50); Red Cell Distribution Width 13.6 % (11.0-16.0); White Blood Count 6.1 X10*3/uL (4.8-10.8)
[2024-06-17] MEDS: Morphine Sulfate 10 MG/ML CARTRIDGE 6 MG IM (01:28)
[2024-06-17] MEDS: Ondansetron ODT 8 MG TAB.RAPDIS TRANSLINGU (01:28)
[2024-06-17 01:40] LABS: Alanine Aminotransferase 14 U/L (0-31); Albumin Level 4.1 g/dL (3.5-5.0); Alkaline Phosphatase 85 U/L (39-117); Anion Gap 11 (12-20); Aspartate Amino Transferase 15 U/L (5-31); Bilirubin Total 0.3 mg/dL (0.0-1.0); Blood Urea Nitrogen 10 mg/dL (9-16); Calcium 9.7 mg/dL (8.4-10.2); Carbon Dioxide 27 mmol/L (22-29); Chloride 106 mmol/L (96-108); Creatinine Clr Calc Pharmacy 84.3; Estimated Glomerular Filt Rate > 60; Ethanol < 10 mg/dL; Glucose Random 99 mg/dL (60-115); Magnesium 1.9 mg/dL (1.6-2.6); Potassium 2.8 mmol/L (3.3-5.1); Sodium 141 mmol/L (135-145); Total Protein 7.3 g/dL (6.5-8.0)
[2024-06-17 01:40] LABS: Amphetamine Screen Urine Not Detected (Not Detect); Barbiturates, Urine Not Detected (Not Detect); Benzodiazepines Screen Urine Not Detected (Not Detect); Buprenorphine Scr Not Detected (Not Detect); Cannabinoid Screen Urine Not Detected (Not Detect); Cocaine Screen Urine POSITIVE (Not Detect); Fentanyl, urine Not Detected (Not Detect); Methadone Screen, Urine Not Detected (Not Detect); Opiate Screen Urine Not Detected (Not Detect); Oxycodone Screen Urine Not Detected (Not Detect); Phencyclidine Screen Urine Not Detected (Not Detect)
--- NOTE | 2024-06-17 01:42 | ECG_ITS ---
Test Reason : ARRHYTHMIA Blood Pressure : / mmHG Vent. Rate : 074 BPM Atrial Rate : 074 BPM P-R Int : 176 ms QRS Dur : 102 ms QT Int : 414 ms P-R-T Axes : 076 021 048 degrees QTc Int : 459 ms Normal sinus rhythm Normal ECG When compared with ECG of 14-APR-2024 16:08, No significant change was found Referred By: Snow Call Electronically Signed By:JOHN LAWS
[2024-06-17 01:44] LABS: HCG Quantitative 5 mIU/mL
[2024-06-17 02:00] VITALS: BP 111/64; PULSE 82; RESP 16; TEMP 36.4; O2SAT 96
--- NOTE | 2024-06-17 02:02 | MHC.EDTECH ---
EKG delay due to procedure
[2024-06-17] MEDS: Potassium Chloride Packet 20 MEQ PACKET 40 MEQ PO (02:09)
[2024-06-17] MEDS: Potassium Chloride/H20 10 MEQ/100 ML PIGGYBACK 100 MEQ IV ×4 (02:10→06:49)
[2024-06-17 04:00] VITALS: BP 99/63; PULSE 78; RESP 16; TEMP 36.4; O2SAT 98
--- NOTE | 2024-06-17 04:33 | PC.NURSE ---
Pressures on soft side, MD aware and no new orders at this time
[2024-06-17 06:00] VITALS: BP 88/58; PULSE 75; RESP 16; TEMP 36.6; O2SAT 96
--- NOTE | 2024-06-17 08:12 | PC.NURSE ---
provider in to speak with patient d/t phone call from family stating that patient is feeling suicidal. plan for section 12 and care team consult.
[2024-06-17 10:33] LABS: Blood Urea Nitrogen 7 mg/dL (9-16); Calcium 9.3 mg/dL (8.4-10.2); Creatinine Clr Calc Pharmacy 88.9; Estimated Glomerular Filt Rate > 60; Glucose Random 86 mg/dL (60-115); Magnesium 1.9 mg/dL (1.6-2.6)
[2024-06-17 11:12] LABS: Anion Gap 12 (12-20); Carbon Dioxide 22 mmol/L (22-29); Chloride 111 mmol/L (96-108); Potassium 4.1 mmol/L (3.3-5.1); Sodium 141 mmol/L (135-145)
--- NOTE | 2024-06-17 14:58 | MHC.CARE ---
Patient evaluated by the CARE Team, disposition determined to be dual diagnosis inpatient treatment. ED provider, Dr. Hunter updated.
[2024-06-17] MEDS: Acetaminophen 325 MG TABLET 650 MG PO (16:20)
--- NOTE | 2024-06-17 18:04 | MHC.CARE ---
Bedsearch Note: CARE team conducted [place] bed[place] of dual diagnosis inpatient facilities. [facility] - 3 beds available per [employer] referral packet faxed to [phone] [facility] - no beds available per [employer] updated 2 hours ago [facility] - no beds available per [employer] updated 4 hours ago [facility] - no beds available per phone call to facility
[2024-06-17 20:45] VITALS: BP 106/65; PULSE 61; RESP 16; TEMP 36.2; O2SAT 97
[2024-06-18 06:00] VITALS: BP 132/79; PULSE 58; RESP 16; TEMP 36.6; O2SAT 97
--- NOTE | 2024-06-18 07:01 | PC.NURSE ---
Assumed care of patient at 0645. At this time the patient is observed resting quietly in bed. No signs of distress observed. Breathing is even and unlabored.
--- NOTE | 2024-06-18 12:59 | MHC.CARE ---
Referral packet faxed to Dual Diagnosis units [facility] and [facility] as well as [facility].
--- NOTE | 2024-06-18 15:06 | PHA.MEDREC ---
Pharmacy Consult ? Medication Reconciliation Pharmacy has completed the medication reconciliation. Reviewed med rec done by nursing and used claim history to verify.
[2024-06-18] MEDS: Nicotine 21 MG PATCH.TD24 TRANSDERMA (16:56)
[2024-06-18] MEDS: Acetaminophen 325 MG TABLET 650 MG PO (17:36)
[2024-06-18 17:45] VITALS: BP 138/85; PULSE 81; RESP 15; TEMP 36.9; O2SAT 100
[2024-06-18] MEDS: Baclofen 10 MG TABLET PO (23:29)
[2024-06-18] MEDS: Mirtazapine 30 MG TABLET PO (23:29)
[2024-06-18 23:35] VITALS: BP 108/62; PULSE 57; RESP 16; TEMP 36.7; O2SAT 98
[2024-06-18 23:36] VITALS: BP 108/62
[2024-06-18] MEDS: Prazosin HCL 1 MG CAPSULE 2 MG PO (23:36)
[2024-06-19 06:34] VITALS: BP 107/62; PULSE 60; RESP 16; TEMP 36.6; O2SAT 93
--- NOTE | 2024-06-19 08:04 | MHC.CARE ---
Brianna/dmitry spoke with staff at [facility] who accepted Pt to [facility] for today. ETA 4:00PM, accepting doctor is Dr Twyla Blue, N2N requested. Chapo spoke with ED Pod nurse Venecia and gave the above accepting information. Venecia stated she will arrange transportation after the N2N.
[2024-06-19] MEDS: Nicotine 21 MG PATCH.TD24 TRANSDERMA (08:13)
[2024-06-19] MEDS: lamoTRIgine 25 MG TABLET PO (08:13)
[2024-06-19] MEDS: Baclofen 10 MG TABLET PO (08:13)
[2024-06-19] MEDS: ARIPiprazole 10 MG TABLET PO (08:13)
--- NOTE | 2024-06-19 09:03 | PC.NURSE ---
Assumed care of patient at 0645, patient appears to be in no apparent distress this am, calm and cooperative. Pt aware of plan of care for [facility] admission today
[2024-06-19 14:00] VITALS: BP 95/65; PULSE 66; RESP 16; TEMP 36.3; O2SAT 99
[2024-06-19 15:43] VITALS: BP 102/56; PULSE 68; RESP 16; TEMP 36.9; O2SAT 99
== END 2024-06-19 15:45 ==
PROVIDERS: Physician Assistant Medical; Emergency Provider Emergency Medicine Emergency Medical Services; PCP Nurse Practitioner Adult Health
DX: R45.851 Suicidal ideations (principal); F19.10 Other psychoactive substance abuse, uncomplicated; F31.9 Bipolar disorder, unspecified; E87.6 Hypokalemia; M54.2 Cervicalgia; R07.89 Other chest pain; S19.9XXA Unspecified injury of neck, initial encounter; V43.62XA Car passenger injured in collision with other type car in traffic accident, initial encounter; W22.10XA Striking against or struck by unspecified automobile airbag, initial encounter; Y93.9 Activity, unspecified; Y92.410 Unspecified street and highway as the place of occurrence of the external cause; Y99.9 Unspecified external cause status; Z13.39 Encounter for screening examination for other mental health and behavioral disorders; Z65.3 Problems related to other legal circumstances
CPT/HCPCS: 36415; 70450; 71046; 72125; 80048; 80053; 80307; 83735; 84702; 85025; 93005; 96365; 96366; 96372; 99285; J2270; J3480; S9485